=== PATIENT | male | born 1945 | race Caucasian/White ===

== ENCOUNTER 2020-09-17 21:37 | Inpatient (IN) | payer MEDICARE ==
[~2020-09-17] VITALS: Ht 172.7 cm; Wt 85.9 kg
[2020-09-17 22:22] LABS: BASO % 0.4 % (0.0-1.0); EOS # 0.1 10^3/uL (0.0-0.5); EOS % 0.6 % (0.0-3.0); HEMATOCRIT 30.5 % (42.0-52.0); HEMOGLOBIN 9.7 g/dl (13.5-17.5); LYMPH # 0.5 10^3/uL (1.5-5.0); LYMPH % 5.8 % (24.0-44.0); MEAN CORPUSCULAR HEMOGLOBIN 30.3 pg (27.0-33.0); MEAN CORPUSCULAR HGB CONC 31.8 g/dl (32.0-36.5); MEAN CORPUSCULAR VOLUME 95.3 fl (80.0-96.0); MONO # 0.6 10^3/uL (0.0-0.8); MONO % 8.3 % (0.0-5.0); NEUTROPHILS # 6.3 10^3/uL (1.5-8.5); NEUTROPHILS % 81.1 % (36.0-66.0); PLATELET COUNT, AUTOMATED 215 10^3/uL (150-450); WHITE BLOOD COUNT 7.7 10^3/uL (4.0-10.0)
--- NOTE | 2020-09-17 22:47 | REPVR ---
PROCEDURE INFORMATION: Exam: CT Head Without Contrast Exam date and time: 09/17/2020 10:36 PM Age: 74 years old Clinical indication: Other: Rule out stroke, recent confusion, visual changes TECHNIQUE: Imaging protocol: Computed tomography of the head without contrast. Radiation optimization: All CT scans at this facility use at least one of these dose optimization techniques: automated exposure control; mA and/or kV adjustment per patient size (includes targeted exams where dose is matched to clinical indication); or iterative reconstruction. COMPARISON: No relevant prior studies available. FINDINGS: Brain: There is no acute cortical infarction, intracranial hemorrhage or mass. 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 Cerebral ventricles: The ventricles appear enlarged, but not out of proportion to the degree of parenchymal volume loss. Bones/joints: Unremarkable. No acute fracture. Paranasal sinuses: Visualized sinuses are unremarkable. No fluid levels. Mastoid air cells: Visualized mastoid air cells are well aerated. Vasculature: Atherosclerosis. Soft tissues: Unremarkable. IMPRESSION: No acute intracranial findings. Electronically signed by: Awilda Jaramillo On 09/17/2020 22:47:16 PM
[2020-09-17] MEDS ORDERED: OLANZapine INTRAMUSCULAR 10MG VIAL IM ONE (23:00)
[2020-09-17 23:01] LABS: ALT/SGPT 22 U/L (12-78); BILIRUBIN,DIRECT < 0.1 MG/DL (0.0-0.2); BILIRUBIN,TOTAL 0.3 MG/DL (0.2-1.0); BLOOD UREA NITROGEN 80 MG/DL (7-18); CALCIUM LEVEL 7.7 MG/DL (8.8-10.2); CARBON DIOXIDE LEVEL 25 MEQ/L (21-32); CHLORIDE LEVEL 102 MEQ/L (98-107); CK-MB VALUE MASS 2.2 NG/ML (<3.6); CPK CREATINE PHOSPHOKINASE 203 U/L (39-308); CREATININE FOR GFR 4.86 MG/DL (0.70-1.30); GLOMERULAR FILTRATION RATE 12.5 (>42); GLUCOSE, FASTING 115 MG/DL (70-100); MB/CK RELATIVE INDEX 1.08 (< OR =4); NT-PRO BNP 3614 PG/ML (<450); POTASSIUM SERUM 4.6 MEQ/L (3.5-5.1); SODIUM LEVEL 136 MEQ/L (136-145); TOTAL PROTEIN 6.1 GM/DL (6.4-8.2); TROPONIN I < 0.02 NG/ML (< 0.10)
[2020-09-17] MEDS ORDERED: NS 500 ML IV ONE (23:30)
--- NOTE | 2020-09-17 23:55 | REPVR ---
PROCEDURE INFORMATION: Exam: XR Chest, 1 View Exam date and time: 09/17/2020 11:43 PM Age: 74 years old Clinical indication: Cough; Additional info: Dyspnea/cough TECHNIQUE: Imaging protocol: XR of the chest Views: 1 view. COMPARISON: No relevant prior studies available. FINDINGS: Lungs: Mild infiltrates in the left lung. Pleural space: Unremarkable. No pleural effusion. No pneumothorax. Heart/Mediastinum: Unremarkable. No cardiomegaly. Bones/joints: Unremarkable. IMPRESSION: Mild infiltrates in the left lung. Electronically signed by: Mike Bui On 09/17/2020 23:55:38 PM
[2020-09-18] VITALS (10 sets, daily range): BP systolic 148–196; BP diastolic 67–85; O2SAT 93–98
[2020-09-18] MEDS ORDERED: OLANZapine INTRAMUSCULAR 10MG VIAL IM ONE (00:15)
--- NOTE | 2020-09-18 01:21 | HPEPDOC ---
[facility] Medical History & Physical Date of Admission Sep 18, 2020 Date of Service: Sep 18, 2020 Attending Physician: SUKUMAR MCGEE MD History and Physical CHIEF COMPLAINT: Weakness, Encephalopathy HISTORY OF PRESENT ILLNESS: Patient is a 74 year old male with an limited past medical history presented to the emergency department via EMS the evening of 09/17/2020. He missed was contacted by the patient's who reported that the patient had been weak for the last 1-2 weeks. Patient also reported having visual changes over that time. Which showed resolved. Patient's also reported decreased appetite, increasing shortness of breath and cough. does report a history of dementia. Upon presentation, patient was found to be awake, alert and oriented, but uncooperative and restless. He was noted to be 85% on room air, improved to 95% with nasal cannula. COVID testing was POS. In regards to the reported history of vision changes, CT head is negative for any acute findings. Per nursing notes, patient refused to wear a mask, was repeatedly shouting that "I don't have COVID because I'm a Baptism and Baptism's don't get COVID ". Patient required constant redirection, with continued refusal to her blood pressure cuff or cardiac rehabilitation specialist. Ultimately, Zyprexa was administered with moderate improvement. Laboratory investigation indicated a WBC WNL, H/H of 9.7/30.5. Pro-BNP of 3614. BUN/Cr of 80/4.86 GFR of 12. Albumin of 2.0. 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 Patient is unable/unwilling to discuss any daily medication use. Given patient's oxygen requirement with COVID POS status, encephalopathy and LAILA, patient will be admitted for further evaluation and management. PAST MEDICAL HISTORY: Hypertension Unable to be obtained PAST SURGICAL HISTORY: Unable to be obtained SOCIAL HISTORY: Marital status: Resides in: Lives in home with in [address] [place]. FAMILY HISTORY: Noncontributory ALLERGIES: Penicillins REVIEW OF SYSTEMS: Unable to adequately be obtained secondary to current patient's current encephalopathy Pt does report difficulty swallowing, unclear if this is a new symptom. HOME MEDICATIONS: Please see below. PHYSICAL EXAMINATION: (Limited 2/2 to mental status) VITAL SIGNS: Please see below GENERAL APPEARANCE: Patient interviewed and examined in the emergency department. He was found to be awake and alert. He appeared extremely restless and agitated with my presence. Patient would seem to respond to my questions, though unintelligibly. Patient attends a clarification only seemed to further upset him. HEENT: Normocephalic, atraumatic. No scleral icterus noted. CARDIOVASCULAR: Regular rate and rhythm, no murmur auscultated LUNGS: Diminished lung sounds in the bases bilaterally. No obvious wheezing rales or rhonchi EXTREMITIES: Patient was moving all of his extremities independently. No indication of AV fistula. SKIN: No obvious skin rashes, lesions or bruising NEUROLOGICAL: Oriented to place. Patient was able to follow instructions as it pertains to the cardiovascular and respiratory examination. Resting tremor noted L>R. LABORATORY DATA: See below. IMAGING: Chest XR (09/17/20): Mild infiltrates in the left lung. Head CT (09/17/20): No acute intracranial findings. Renal US (09/18/20): Pending. ASSESSMENT: Patient is a 74-year-old male, past medical history of hypertension, breast otherwise unknown, who was brought to the emergency department by EMS after his stated that he had been unwell for the last 1-2 weeks. She reports increasing weakness and fatigue in the setting of intermittent coughing and shortness of breath. Patient's also raised question as to the possibility of a CVA/TIA as patient reported intermittent vision changes that had resolved prior to his presentation this evening. CT of the head did not indicate any acute intracranial pathology. Patient was extremely uncooperative as it pertains to history taking and examination. It is unclear as to whether or not the patient follows regularly with a physician, if he has known chronic kidney disease or if he takes medications on daily basis. The emergency department, patient was found to be COVID positive, which may account for the patient's encephalopathy. Depending on whether or not his elevated BUN/Cr and GFR are chronic or acute, this could also be contributing to his current presentation. Patient to be admitted to the floor under the standardized COVID order set. Close monitoring of laboratory values and oxygen saturation. Of utmost importance will be obtaining appropriate collateral regarding patient's past medical history and current medications. PLAN: #Encephalopathy vs Dementia, SARS-CoV-2 POS -Underlying dementia -Possibly related to COVID 19 but also likely compounded by uremia. -Patient's vitals are stable, he maintains saturations greater than 95% when placed on 3 L via NC. -Patient does not carry an elevated white count, he is not tachycardic, he remains afebrile, lactic acid of 1.5. Odds of of septic etiology remain low. #L-sided PNA, likely SARS-CoV-2 PNA -Droplet precautions, pulse ox, supplemental O2. Trend fibrinogen, INR, PT, PTT, d-dimer, INR, ferritin, LDH, troponin, BMP -Chest X-ray images mild infiltrates in the left lung. Pro-calcitonin, strep pneumo, Mycoplasma and Legionella pending to rule out commitment bacterial infection. -Patient will be admitted to the floor with telemetry monitoring and standard COVID lab orders. #LAILA/CKD -BUN/Cr of 80/4.86, GFR of 12. Hypoalbuminemia -No previous records. Electrolytes within normal limits. -UA, Renal ultrasound, PTH, urine osmolality, protein, potassium and sodium -Normal saline at a rate of 70 cc/hr. Patient is yet to have any urine output. -We will attempt to place a Morales for accurate I's and O's. -Serial BMP to monitor for improvement. -Avoidance of all nephrotoxic medications -Consider nephrology consultation in the AM. #Dysphagia -Pt is reporting difficulty swallowing -Difficulty swallowing liquids -Swallow evaluation, NPO for now #Hypertension -Patient noted to have elevated BP during times of agitation -Latest reading of 131/94 (106), continue to monitor. DVT PROPHYLAXIS: TEDs and Sequentials DISPOSITION: Anticipate greater than 2 night stay Vital Signs Vital Signs Date Time Temp Pulse Resp B/P (MAP) Pulse Ox O2 Delivery O2 Flow Rate FiO2 09/17/20 22:12 82 22 164/77 (106) 96 Room Air Laboratory Data Labs 24H Laboratory Tests 2 09/17/20 22:04: Immature Granulocyte % (Auto) 3.8H, Neutrophils (%) (Auto) 81.1H, Lymphocytes (%) (Auto) 5.8L, Monocytes (%) (Auto) 8.3H, Eosinophils (%) (Auto) 0.6, Basophils (%) (Auto) 0.4, Neutrophils # (Auto) 6.3, Lymphocytes # (Auto) 0.5L, Monocytes # (Auto) 0.6, Eosinophils # (Auto) 0.1, Basophils # (Auto) 0.0, Nucleated Red Blood Cells % (auto) 0.0, Anion Gap 9, Glomerular Filtration Rate 12.5L, Lactic Acid Level 1.5, Calcium Level 7.7L, Total Bilirubin 0.3, Direct Bilirubin < 0.1, Aspartate Amino Transf (AST/SGOT) 34, Alanine Aminotransferase (ALT/SGPT) 22, Alkaline Phosphatase 58, Total Creatine Kinase 203, Creatine Kinase MB 2.2, Creatine Kinase MB Relative Index 1.08, Troponin I < 0.02, FY-Ueu-R-Type Natriuretic Peptide 3614H, Total Protein 6.1L, Albumin 2.0L, Albumin/Globulin Ratio 0.5, Coronavirus (COVID-19)(PCR) POSITIVEA CBC/BMP Laboratory Tests 09/17/20 22:04 Home Medications Scheduled Amlodipine Besylate (Amlodipine Besylate) 10 Mg Tablet, 10 MG PO DAILY Ascorbic Acid (Vitamin C) 500 Mg Tablet, 500 MG PO DAILY Clopidogrel Bisulfate (Plavix) 75 Mg Tablet, 75 MG PO DAILY Glyburide (Glyburide) 5 Mg Tablet, 5 MG PO DAILY Lisinopril/Hydrochlorothiazide (Lisinopril-Hctz 20-25 mg Tab) 1 Each Tablet, 1 TAB PO DAILY Metformin HCl (Metformin HCl) 1,000 Mg Tablet, 1,000 MG PO BID Metoprolol Tartrate (Metoprolol Tartrate) 100 Mg Tablet, 100 MG PO BID Multivit-Min/FA/Lycopen/Lutein (Centrum Silver Ultra Men's Tab) 1 Each Tablet, 1 TAB PO DAILY Prednisone (Prednisone) 50 Mg Tablet, 50 MG PO DAILY Zinc (Zinc) 50 Mg Tablet, 50 MG PO DAILY Scheduled PRN Albuterol Sulfate (Proair Hfa) 8.5 Gm Hfa.aer.ad, 2 PUFF INH Q4-6HP PRN for wheezing Guaifenesin (Guaifenesin) 100 Mg/5 Ml Liquid, 5 ML PO Q4HP PRN for COUGH Allergies Coded Allergies: Penicillins (Verified Allergy, Severe, 09/17/20) A-FIB/CHADSVASC A-FIB History Current/History of A-Fib/PAF?: No GME ATTESTATION GME ATTESTATION My faculty preceptor for this patient encounter was physically present during the encounter and was fully available. All aspects of the patient interview, examination, medical decision making process, and medical care plan development were reviewed and approved by the faculty preceptor. The faculty preceptor is aware and concurs with the plan as stated in the body of this note and will attest to such by his/her cosignature. ATTENDING NOTE Mr. Hernandez is a 74 yr old w a hx HTN and possible dementia who was sent to the ER for evaluation of weakness, poor appetite, cough and dyspnea and will be admitted for management of Sepsis, COVID 19 + PNA and LAILA. rest per 's H&P ELSA WILL DO Sep 18, 2020 01:21 SUKUMAR MCGEE MD Sep 23, 2020 04:56
[2020-09-18 02:14] LABS: INR 1.13; PROTHROMBIN TIME 14.8 SECONDS (12.5-14.3)
[2020-09-18 02:15] LABS: PARTIAL THROMBOPLASTIN TIME 33.7 SECONDS (24.2-38.5)
[2020-09-18 02:19] LABS: FERRITIN 777 NG/ML (26-388); LDH LACTATE DEHYDROGENASE 421 U/L (87-241); TRIGLYCERIDES LEVEL 200 MG/DL (<150)
[2020-09-18 02:19] LABS: D-DIMER QUANT 2264.2 ng/ml (<500)
--- NOTE | 2020-09-18 03:10 | REPVR ---
PROCEDURE INFORMATION: Exam: US Retroperitoneal; Complete; Kidneys and Bladder Exam date and time: 09/18/2020 2:28 AM Age: 74 years old Clinical indication: Abnormal findings; Abnormal lab test; Abnormal kidney function lab tests; Additional info: Darius TECHNIQUE: Imaging protocol: Real-time ultrasound of the retroperitoneum with image documentation. Complete exam focused on the kidneys and bladder. COMPARISON: No relevant prior studies available. FINDINGS: Right kidney: Right kidney measures 12.6 cm in length. Multiple anechoic cyst in the right kidney measuring up to 4.2 cm. No right hydronephrosis. Echogenic right kidney. Left kidney: Left kidney measures 14.4 cm in length. Multiple anechoic cyst in the left kidney measuring up to 3.9 cm. No left hydronephrosis. Echogenic left kidney. Urinary bladder: Bladder is unremarkable. IMPRESSION: 1. No hydronephrosis bilaterally. 2. Echogenic kidneys bilaterally consistent with medical renal disease. 3. Benign-appearing renal cysts bilaterally. No follow-up is necessary. COMMENTS: Consistent with the [employer]'s Incidental Findings Committee white paper (J Am Ron Radiol 2018): Any incidental renal lesion less than 1 cm or classified as too small to characterize, or any incidental cystic renal lesion characterized as simple-appearing, is likely benign. No follow-up imaging is recommended for these lesions per consensus recommendations based on imaging criteria. Electronically signed by: Patrick Serrano On 09/18/2020 03:10:35 AM
[2020-09-18 03:19] LABS: CK-MB VALUE MASS 2.9 NG/ML (<3.6); CPK CREATINE PHOSPHOKINASE 316 U/L (39-308); MB/CK RELATIVE INDEX 0.92 (< OR =4); TROPONIN I < 0.02 NG/ML (< 0.10)
[2020-09-18] MEDS: NS 1,000 ML IV SCH ×2 (06:00→13:00)
[2020-09-18 08:23] LABS: VENOUS BASE EXCESS -3.4 (-2.0-2.0); VENOUS HCO3 21.6 MEQ/L (23.0-27.0); VENOUS O2 SATURATION 60.8 % (60.0-80.0); VENOUS PARTIAL PRESSURE CO2 38.8 mmHg (38.0-50.0); VENOUS PARTIAL PRESSURE O2 32.5 mmHg (30.0-50.0); VENOUS PH 7.364 UNITS (7.330-7.430); VENOUS TOTAL CO2 22.8 MEQ/L (24.0-28.0)
[2020-09-18 09:26] LABS: AMORPHOUS SEDIMENT SMALL (NEGATIVE); APPEARANCE, URINE HAZY (CLEAR); BACTERIA, URINE AUTO NEGATIVE (NEGATIVE); BILIRUBIN, URINE AUTO NEGATIVE (NEGATIVE); BLOOD, URINE BLOOD 2+ (NEGATIVE); COLOR, URINE YELLOW (YELLOW); GLUCOSE, URINE (UA) AUTO 1+ mg/dL (NEGATIVE); KETONE, URINE AUTO NEGATIVE (NEGATIVE); LEUKOCYTE ESTERASE, URINE AUTO NEGATIVE (NEGATIVE); MUCUS, URINE SMALL (NEGATIVE); NITRITE, URINE AUTO NEGATIVE (NEGATIVE); PROTEIN, URINE AUTO 2+ mg/dL (NEGATIVE); RBC, URINE AUTO 1 /HPF (0-3); SPECIFIC GRAVITY URINE AUTO 1.011 (1.002-1.035); SQUAMOUS EPITHELIAL CELL UR AU 0 /HPF (0-6); UROBILINOGEN, URINE AUTO 0.2 mg/dL (0.0-2.0); WBC, URINE AUTO 1 /HPF (0-3)
[2020-09-18 09:47] LABS: CREATININE,RANDOM URINE 83.7 MG/DL; POTASSIUM RANDOM URINE 34.9 MEQ/L; TOTAL PROTEIN,RANDOM URINE 234.5 MG/DL (0.0-12.0)
[2020-09-18] MEDS: dexameTHASONE 4 MG/ML 1ML VIAL (J1100 PER 1MG) IV SCH ×2 (10:34→20:51)
[2020-09-18] MEDS ORDERED: NS 500 ML IV ONE (11:15)
[2020-09-18] MEDS ORDERED: METF10004 PO (11:26)
[2020-09-18] MEDS ORDERED: METO100T5 PO (11:26)
[2020-09-18] MEDS ORDERED: LISI20TA20 PO (11:26)
[2020-09-18] MEDS ORDERED: GLYB5TA PO (11:26)
[2020-09-18] MEDS ORDERED: PLAV1TAB2 PO (11:26)
[2020-09-18] MEDS ORDERED: ZINC1TAB2 PO (11:32)
[2020-09-18] MEDS ORDERED: C 50TAB PO (11:32)
[2020-09-18] MEDS ORDERED: CENTTAB16 PO (11:32)
[2020-09-18 11:34] LABS: HEMATOCRIT 31.8 % (42.0-52.0); HEMOGLOBIN 10.2 g/dl (13.5-17.5); MEAN CORPUSCULAR HEMOGLOBIN 30.9 pg (27.0-33.0); MEAN CORPUSCULAR HGB CONC 32.1 g/dl (32.0-36.5); MEAN CORPUSCULAR VOLUME 96.4 fl (80.0-96.0); PLATELET COUNT, AUTOMATED 247 10^3/uL (150-450); WHITE BLOOD COUNT 9.1 10^3/uL (4.0-10.0)
[2020-09-18 11:37] LABS: INR 1.13; PROTHROMBIN TIME 14.8 SECONDS (12.5-14.3)
[2020-09-18 11:38] LABS: PARTIAL THROMBOPLASTIN TIME 33.9 SECONDS (24.2-38.5)
[2020-09-18 11:41] LABS: D-DIMER QUANT 1971.76 ng/ml (<500)
[2020-09-18 11:56] LABS: HEPATITIS B SURFACE ANTIBODY NEGATIVE (POSITIVE); NT-PRO BNP 4161 PG/ML (<450); PTH INTACT 279.3 PG/ML (18.5-88.0); TROPONIN I 0.23 NG/ML (< 0.10)
[2020-09-18 11:57] LABS: HEPATITIS B SURFACE ANTIGEN NEGATIVE (NEGATIVE)
[2020-09-18 12:06] LABS: ATYPICAL LYMPH 1 % (0-5); EOSINOPHILS 1 % (0-3); LYMPHOCYTES 10 % (16-44); MONOCYTES 11 % (0-5); NEUTROPHILS 77 % (28-66)
[2020-09-18 12:07] LABS: PLATELET ESTIMATE NORMAL (NORMAL)
[2020-09-18 12:08] LABS: ANISOCYTOSIS 1+
[2020-09-18 12:25] LABS: HEPATITIS B CORE ANTIBODY IGM NEGATIVE (NEGATIVE); HIV 1&2 SCREEN CENTAUR NEGATIVE (NEGATIVE)
[2020-09-18 12:53] LABS: FERRITIN 726 NG/ML (26-388); LDH LACTATE DEHYDROGENASE 473 U/L (87-241); TRIGLYCERIDES LEVEL 190 MG/DL (<150)
[2020-09-18] MEDS: HEPARIN SOD (PORCINE) 5000UNITS/ML 1ML VIAL/SYRINGE SQ SCH ×2 (13:00→20:50)
--- NOTE | 2020-09-18 14:27 | ECGEPIP ---
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
--- NOTE | 2020-09-18 15:26 | IPNPDOC ---
Text Note Date of Service The patient was seen on 09/18/20. NOTE Patient was seen and examined in the Covid 19 unit. He is on 3 L of oxygen s aturating around 95. He looks very weak and has been complaining of a lot of cough. PHYSICAL EXAMINATION: GENERAL APPEARANCE: He was found to be awake and alert. . He is on sitting questions appropriately . States that lying flat on his back makes him cough more HEENT: Normocephalic, atraumatic. No scleral icterus noted. CARDIOVASCULAR: Regular rate and rhythm, no murmur auscultated LUNGS: Diminished lung sounds in the bases bilaterally. No obvious wheezing rales or rhonchi, transmitted sounds and very poor cough reflex EXTREMITIES: Patient was moving all of his extremities independently. SKIN: No obvious skin rashes, lesions or bruising NEUROLOGICAL: Oriented to place and person. Patient was able to follow instructions. LABORATORY DATA: See below. IMAGING: Chest XR (09/17/20): Mild infiltrates in the left lung. Head CT (09/17/20): No acute intracranial findings. Renal US (09/18/20): Medical renal disease Assessment and plan Patient is a 74-year-old male, past medical history of hypertension, who was brought to the emergency department by EMS after his stated that he had been unwell for the last 1-2 weeks. She reports increasing weakness and fatigue in the setting of intermittent coughing and shortness of breath. Patient's also raised question as to the possibility of a seizure/CVA/TIA as patient reported intermittent vision changes and was swaying to one side for almost a week that had resolved prior to his presentation this evening. CT of the head did not indicate any acute intracranial pathology. As per the , because of insurance issues. The patient has not had much follow-up with his physicians, the is not familiar with him being having any chronic kidney problems. She stated that she has been taking a lot of Robitussin as well as naproxen The emergency department, patient was found to be COVID positive, which may account for the patient's encephalopathy. Patient was admitted for [place] I code 19, pneumonia and alteration in mental status. 1. Encephalopathy. Could be multifactorial. Uremia related versus SARS-CoV-2. I spoke to in detail and apparently 2 weeks back. He was doing on his usual activities, she denies him having any underlying dementia. . We'll treat the underlying conditions. Currently, he is alert, oriented, and maintaining his airways, was started on a diet as well which he tolerated well. 2. L-sided PNA, likely SARS-CoV-2 PNA: Droplet precautions, pulse ox, supplemental O2. Chest X-ray images mild infiltrates in the left lung. Pro- calcitonin, strep pneumo, Mycoplasma and Legionella pending to rule out commitment bacterial infection. . He has been started on dexamethasone because he is requiring 2-3 L of oxygen. We'll keep a close eye. Covid labs have been reviewed. 3. LAILA/CKD: Given the elevated PTH. 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 No previous records present. He has not had regular follow-up with the PCP as well. As per the . We will continue monitoring. Renal ultrasound was done which shows only medical renal disease. We will get protein creatinine ratio as well as HbA1c. UA will be done as well. Patient continues to be on normal saline at 70 mL after he got 1 L of IV bolus. He has not been letting us put a Morales in place. But the renal ultrasound does not show any distended bladder. We will still do a bladder scan. 4. Hypertension: Continue to monitor. DVT prophylaxis with teds and sequentials as well as heparin 500 3 times a day Disposition unknown at this time. I personally called the and give her all the information regarding his medical condition. VS,Fishbone, I+O VS, Fishbone, I+O Laboratory Tests 09/17/20 22:04 09/18/20 08:00 Vital Signs Date Time Temp Pulse Resp B/P (MAP) Pulse Ox O2 Delivery O2 Flow Rate FiO2 09/18/20 12:00 93 Nasal Cannula 3.0 09/18/20 08:00 98.7 99 21 148/67 (94) I&O- Last 24 Hours up to 6 AM 09/18/20 05:59 Intake Total 500 ml Balance 500 ml SIS CAMPOVERDE MD Sep 18, 2020 15:26
[2020-09-18] MEDS ORDERED: DEXTROSE 50% 50 ML SYRINGE IV PRN (19:45)
[2020-09-18] MEDS ORDERED: GLUCAGON INJ 1MG VIAL SC PRN (19:45)
[2020-09-18] MEDS ORDERED: GLUCOSE 4GM CHEW TABLET PO PRN (19:45)
[2020-09-18] MEDS: HumaLOG INSULIN (NovoLOG) PER UNIT SC SCH (20:51)
[2020-09-18] MEDS: METOPROLOL TARTRATE 100 MG TAB PO SCH (20:51)
[2020-09-19] VITALS (20 sets, daily range): BP systolic 160–188; BP diastolic 72–88; O2SAT 89–98
[2020-09-19] MEDS: HEPARIN SOD (PORCINE) 5000UNITS/ML 1ML VIAL/SYRINGE SQ SCH ×3 (04:54→20:45)
[2020-09-19] MEDS: HumaLOG INSULIN (NovoLOG) PER UNIT SC SCH ×4 (07:30→20:44)
[2020-09-19] MEDS: ASCORBIC ACID 500 MG TAB PO SCH (08:45)
[2020-09-19] MEDS: MULTIVITAMINS/MINERALS THERAP 1 TAB PO SCH (08:47)
[2020-09-19] MEDS: METOPROLOL TARTRATE 100 MG TAB PO SCH ×2 (08:47→20:45)
[2020-09-19] MEDS: dexameTHASONE 4 MG/ML 1ML VIAL (J1100 PER 1MG) IV SCH ×2 (08:48→20:46)
[2020-09-19] MEDS ORDERED: CLOPIDOGREL 75 MG TAB PO SCH (09:00)
[2020-09-19 10:49] LABS: BASO % 0.4 % (0.0-1.0); EOS % 0.3 % (0.0-3.0); HEMATOCRIT 29.4 % (42.0-52.0); HEMOGLOBIN 9.3 g/dl (13.5-17.5); LYMPH # 0.4 10^3/uL (1.5-5.0); LYMPH % 4.3 % (24.0-44.0); MEAN CORPUSCULAR HEMOGLOBIN 30.5 pg (27.0-33.0); MEAN CORPUSCULAR HGB CONC 31.6 g/dl (32.0-36.5); MEAN CORPUSCULAR VOLUME 96.4 fl (80.0-96.0); MONO # 0.6 10^3/uL (0.0-0.8); NEUTROPHILS # 8.6 10^3/uL (1.5-8.5); PLATELET COUNT, AUTOMATED 255 10^3/uL (150-450); RED BLOOD COUNT 3.05 10^6/uL (4.30-6.10); WHITE BLOOD COUNT 10.2 10^3/uL (4.0-10.0)
[2020-09-19 11:07] LABS: INR 1.1; PROTHROMBIN TIME 14.4 SECONDS (12.5-14.3)
[2020-09-19 11:08] LABS: PARTIAL THROMBOPLASTIN TIME 27.9 SECONDS (24.2-38.5)
[2020-09-19 11:22] LABS: ALBUMIN 1.9 GM/DL (3.2-5.2); BILIRUBIN,TOTAL 0.3 MG/DL (0.2-1.0); CALCIUM LEVEL 7.8 MG/DL (8.8-10.2); CREATININE FOR GFR 4.33 MG/DL (0.70-1.30); GLOMERULAR FILTRATION RATE 14.3 (>42); POTASSIUM SERUM 4.2 MEQ/L (3.5-5.1); TOTAL PROTEIN 5.8 GM/DL (6.4-8.2)
[2020-09-19 11:25] LABS: ALBUMIN 1.9 GM/DL (3.2-5.2); ALT/SGPT 42 U/L (12-78); BILIRUBIN,DIRECT < 0.1 MG/DL (0.0-0.2); BILIRUBIN,TOTAL 0.2 MG/DL (0.2-1.0); BLOOD UREA NITROGEN 74 MG/DL (7-18); CALCIUM LEVEL 7.5 MG/DL (8.8-10.2); CARBON DIOXIDE LEVEL 26 MEQ/L (21-32); CHLORIDE LEVEL 106 MEQ/L (98-107); CREATININE FOR GFR 4.39 MG/DL (0.70-1.30); FERRITIN 529 NG/ML (26-388); GLOMERULAR FILTRATION RATE 14.1 (>42); GLUCOSE, FASTING 200 MG/DL (70-100); MAGNESIUM LEVEL 2.6 MG/DL (1.8-2.4); NT-PRO BNP 9356 PG/ML (<450); POTASSIUM SERUM 4.2 MEQ/L (3.5-5.1); SODIUM LEVEL 141 MEQ/L (136-145); TOTAL PROTEIN 5.9 GM/DL (6.4-8.2)
[2020-09-19] MEDS: CHLORHEXIDINE GLUCONATE 0.12 % 15ML UDC (PERIDEX ORAL RINSE) SSP SCH ×2 (11:53→20:44)
[2020-09-19] MEDS: NS 1,000 ML IV SCH (11:53)
--- NOTE | 2020-09-19 13:07 | IPNPDOC ---
Text Note Date of Service The patient was seen on 09/19/20. NOTE Patient was seen and examined in the Covid 19 unit. He is on 2 L of oxygen s aturating around 95. He looks very weak and has been complaining of a lot of cough. PHYSICAL EXAMINATION: GENERAL APPEARANCE: He was found to be awake and alert. . He is on sitting questions appropriately . States that lying flat on his back makes him cough more HEENT: Normocephalic, atraumatic. No scleral icterus noted. CARDIOVASCULAR: Regular rate and rhythm, no murmur auscultated LUNGS: Diminished lung sounds in the bases bilaterally. No obvious wheezing rales or rhonchi, transmitted sounds and very poor cough reflex EXTREMITIES: Patient was moving all of his extremities independently. SKIN: No obvious skin rashes, lesions or bruising NEUROLOGICAL: Oriented to place and person. Patient was able to follow instructions. LABORATORY DATA: See below. IMAGING: Chest XR (09/17/20): Mild infiltrates in the left lung. Head CT (09/17/20): No acute intracranial findings. Renal US (09/18/20): Medical renal disease Assessment and plan Patient is a 74-year-old male, past medical history of hypertension, who was brought to the emergency department by EMS after his stated that he had been unwell for the last 1-2 weeks. She reports increasing weakness and fatigue in the setting of intermittent coughing and shortness of breath. Patient's also raised question as to the possibility of a seizure/CVA/TIA as patient reported intermittent vision changes and was swaying to one side for almost a week that had resolved prior to his presentation this evening. CT of the head did not indicate any acute intracranial pathology. As per the , because of insurance issues. The patient has not had much follow-up with his physicians, the is not familiar with him being having any chronic kidney problems. She stated that she has been taking a lot of Robitussin as well as naproxen The emergency department, patient was found to be COVID positive, which may account for the patient's encephalopathy. The patient apparently is on hydrochlorothiazide as well as lisinopril. Also at home because of his hypertension. The patient has been improving and is more alert today, as well as he is on only 2 L of oxygen, though he does not use any oxygen at home. Seems like that he has chronic kidney disease because of his PTH of 290, which correlates with CAD stage IIIB to 4. He has been nonoliguric and has been making more than a liter a day. She definitely will require outpatient follow-up with nephrology. He is not hyperkalemic severely acidotic or having any other alma cations of initiation of dialysis but probably would require a close follow-up with nephrology as an outpatient. Patient is currently admitted for [place] I/CKD coVID 19, pneumonia and alteration in mental status. 1. Encephalopathy. Could be multifactorial. Uremia related versus SARS-CoV-2. I spoke to in detail and apparently 2 weeks back. He was doing on his usual activities, she denies him having any underlying dementia. . We'll treat the underlying conditions. Currently, he is alert, oriented, and maintaining his airways, was started on a diet as well which he tolerated well. 2. Left-sided pneumonia, likely SARS-CoV-2 PNA: Droplet precautions, pulse ox, supplemental O2. Chest X-ray images mild infiltrates in the left lung. Pro- calcitonin slightly elevated, strep pneumo, Mycoplasma and Legionella pending to rule out commitment bacterial infection. He has been started on dexamethasone because he is requiring 2-3 L of oxygen. We'll keep a close eye. Covid labs have been reviewed.. He is on 2 L of oxygen and is improving. 3. LAILA/CKD: Given the elevated PTH. 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 No previous records present. He has not had regular follow-up with the PCP as well as per the . We will continue monitoring. Renal ultrasound was done which shows only medical renal disease. We will get protein creatinine ratio as well as HbA1c. UA will be done as well. Patient continues to be on normal saline at 70 mL after he got 1 L of IV bolus. He has not been letting us put a Morales in place. But the renal ultrasound does not show any distended bladder. 4. Hypertension: Continue to monitor. Metoprolol will be continued. His head was has evidence of recurrent hold. Amlodipine 5, has been admitted today. DVT prophylaxis with teds and sequentials as well as heparin 5000 3 times a day Disposition unknown at this time. I personally called the and give her all the information regarding his medical condition. VS,Jennifer, I+O VS, Fishbone, I+O Laboratory Tests 09/19/20 10:01 Vital Signs Date Time Temp Pulse Resp B/P (MAP) Pulse Ox O2 Delivery O2 Flow Rate FiO2 09/19/20 08:47 83 182/81 09/19/20 08:00 96.4 21 98 Nasal Cannula 2.0 I&O- Last 24 Hours up to 6 AM 09/19/20 06:00 Intake Total 2020 ml Output Total 2950 ml Balance -930 ml SIS CAMPOVERDE MD Sep 19, 2020 13:07
[2020-09-19] MEDS: amLODIPine 5 MG TAB PO SCH (14:36)
[2020-09-20] VITALS: BP 151/80; O2SAT 96
[2020-09-20] MEDS: NS 1,000 ML IV SCH (03:49)
[2020-09-20 04:00] VITALS: BP 165/76
[2020-09-20] MEDS: HEPARIN SOD (PORCINE) 5000UNITS/ML 1ML VIAL/SYRINGE SQ SCH ×2 (06:29→13:32)
[2020-09-20 07:55] LABS: BASO % 0.2 % (0.0-1.0); EOS % 0.1 % (0.0-3.0); HEMATOCRIT 29.9 % (42.0-52.0); HEMOGLOBIN 9.8 g/dl (13.5-17.5); LYMPH # 0.4 10^3/uL (1.5-5.0); LYMPH % 4.2 % (24.0-44.0); MEAN CORPUSCULAR HEMOGLOBIN 31.4 pg (27.0-33.0); MEAN CORPUSCULAR HGB CONC 32.8 g/dl (32.0-36.5); MEAN CORPUSCULAR VOLUME 95.8 fl (80.0-96.0); MONO # 0.7 10^3/uL (0.0-0.8); MONO % 6.6 % (0.0-5.0); NEUTROPHILS # 8.4 10^3/uL (1.5-8.5); NEUTROPHILS % 84.1 % (36.0-66.0); PLATELET COUNT, AUTOMATED 260 10^3/uL (150-450); RED BLOOD COUNT 3.12 10^6/uL (4.30-6.10)
[2020-09-20 08:00] VITALS: BP 196/92
[2020-09-20 08:20] LABS: INR 1.16; PROTHROMBIN TIME 15.1 SECONDS (12.5-14.3)
[2020-09-20 08:21] LABS: PARTIAL THROMBOPLASTIN TIME 30.1 SECONDS (24.2-38.5)
[2020-09-20 08:25] LABS: ALBUMIN 1.9 GM/DL (3.2-5.2); ALT/SGPT 41 U/L (12-78); BILIRUBIN,DIRECT < 0.1 MG/DL (0.0-0.2); BILIRUBIN,TOTAL 0.2 MG/DL (0.2-1.0); BLOOD UREA NITROGEN 76 MG/DL (7-18); CALCIUM LEVEL 7.8 MG/DL (8.8-10.2); CARBON DIOXIDE LEVEL 24 MEQ/L (21-32); CHLORIDE LEVEL 109 MEQ/L (98-107); CREATININE FOR GFR 3.81 MG/DL (0.70-1.30); FERRITIN 437 NG/ML (26-388); GLOMERULAR FILTRATION RATE 16.6 (>42); GLUCOSE, FASTING 207 MG/DL (70-100); MAGNESIUM LEVEL 2.3 MG/DL (1.8-2.4); POTASSIUM SERUM 4.3 MEQ/L (3.5-5.1); SODIUM LEVEL 141 MEQ/L (136-145); TOTAL PROTEIN 6.5 GM/DL (6.4-8.2)
[2020-09-20] MEDS: ASCORBIC ACID 500 MG TAB PO SCH (08:30)
[2020-09-20] MEDS: HumaLOG INSULIN (NovoLOG) PER UNIT SC SCH ×2 (08:30→13:32)
[2020-09-20] MEDS: CHLORHEXIDINE GLUCONATE 0.12 % 15ML UDC (PERIDEX ORAL RINSE) SSP SCH (08:30)
[2020-09-20] MEDS: METOPROLOL TARTRATE 100 MG TAB PO SCH (08:31)
[2020-09-20] MEDS: MULTIVITAMINS/MINERALS THERAP 1 TAB PO SCH (08:31)
[2020-09-20] MEDS: dexameTHASONE 4 MG/ML 1ML VIAL (J1100 PER 1MG) IV SCH (08:31)
[2020-09-20] MEDS: amLODIPine 5 MG TAB PO SCH (08:31)
[2020-09-20 08:47] LABS: NT-PRO BNP 11542 PG/ML (<450)
[2020-09-20 09:46] VITALS: BP 166/74
[2020-09-20] MEDS ORDERED: guaiFENesin SYRUP 200 MG/10 ML UDC PO PRN (12:00)
--- NOTE | 2020-09-20 14:14 | DS.PDOC ---
Discharge Summary General Date of Admission Sep 18, 2020 at 01:05 Date of Discharge 09/20/2020 Discharge Summary PROCEDURES PERFORMED DURING STAY: [None]. ADMITTING DIAGNOSES: 1. Weakness 2. Encephalopathy DISCHARGE DIAGNOSES: 1. Hypoxia due to COVID infection 2. 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 HISTORY OF PRESENT ILLNESS: From H&P: Patient is a 74 year old male with an limited past medical history presented to the emergency department via EMS the evening of 09/17/2020. He missed was contacted by the patient's who reported that the patient had been weak for the last 1-2 weeks. Patient also reported having visual changes over that time. Which showed resolved. Patient's also reported decreased appetite, increasing shortness of breath and cough. does report a history of dementia. Upon presentation, patient was found to be awake, alert and oriented, but uncooperative and restless. He was noted to be 85% on room air, improved to 95% with nasal cannula. COVID testing was POS. In regards to the reported history of vision changes, CT head is negative for any acute findings. Per nursing notes, patient refused to wear a mask, was repeatedly shouting that "I don't have COVID because I'm a [employer] and [employer]'s don't get COVID ". Patient required constant redirection, with continued refusal to her blood pressure cuff or personnel monitor. Ultimately, Zyprexa was administered with moderate improvement. Laboratory investigation indicated a WBC WNL, H/H of 9.7/30.5. Pro-BNP of 3614. BUN/Cr of 80/4.86 GFR of 12. Albumin of 2.0. 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 Patient is unable/unwilling to discuss any daily medication use. Given patient's oxygen requirement with COVID POS status, encephalopathy and LAILA, patient will be admitted for further evaluation and management. HOSPITAL COURSE: Patient is a 74-year-old male, past medical history of hypertension, who was brought to the emergency department by EMS after his stated that he had been unwell for the last 1-2 weeks. She reports increasing weakness and fatigue in the setting of intermittent coughing and shortness of breath. Patient's also raised question as to the possibility of a seizure/CVA/TIA as patient reported intermittent vision changes and was swaying to one side for almost a week that had resolved prior to his presentation this evening. CT of the head did not indicate any acute intrac ranial pathology. As per the , because of insurance issues. The patient has not had much follow-up with his physicians, the is not familiar with him being having any chronic kidney problems. She stated that she has been taking a lot of Robitussin as well as naproxen The emergency department, patient was found to be COVID positive, which may account for the patient's encephalopathy. The patient apparently is on hydrochlorothiazide as well as lisinopril. Also at home because of his hypertension. Seems like that he has chronic kidney disease because of his PTH of 290, which correlates with CAD stage IIIB to 4. He has been nonoliguric and has been making more than a liter a day. He definitely will require outpatient follow-up with nephrology. I saw the patient on 09/20/2020 and regarding the history of encephalopathy on admission I did not observe this. Patient was completely alert and oriented making jokes and I was not under the impression he has any level of underlying encephalopathy at this time. Regarding his suspected left-sided pneumonia; he does not have leukocytosis and his cough is chronic and unchanged his pro-calcitonin is 0.42. At this time I do not suspect the patient has a pneumonia he has also been afebrile during his entire length of stay. The patient does have Covid and didn't require supplement oxygen initially which was weaned down and he is saturating at 96% on room air both at rest and on ambulation he has sustained an oxygen saturation over 90%. He denies being short of breath anymore and does not feel weak. I don't think the patient will require antibiotics since I don't think he has a pneumonia but I do recommend a follow-up with his primary care doctor within 2-5 days of discharge. Regarding his code infection given that he required oxygen during his stay initially I will discharge him home on 5 days of prednisone by mouth. I also prescribed him an albuterol inhaler to be used as needed for wheezing or shortness of breath. I instructed the patient to return back to the emergency department should he develop increased shortness of breath, weakness, wheezing, increased sputum production or new onset fevers. Regarding his hypertension patient is not compliant with home medications but I emphasized the importance of following up with a primary care doctor upon discharge. I will increase his amlodipine from 5 mg to 10 mg upon discharge. Patient was cleared by physical therapy for discharge to home. DISCHARGE MEDICATIONS: Please see below. ALLERGIES: Please see below. PHYSICAL EXAMINATION ON DISCHARGE: Constitutional: Awake and alert, in no apparent distress, sitting at the edge of his bed and having dinner saturating at 94% on room air. ENT: Sclera are clear. Mucosa is moist. Respiratory: Lungs CTA bilaterally although breath sounds are somewhat diminished bilaterally. No respiratory distress. No use of accessory muscles. Patient has a poor cough reflex Cardiovascular: RRR S1 and S2 are normal, no murmur Gastrointestinal: Abdomen is soft, non distended, non tender, BS present. Musculoskeletal: No edema. Neurologic: No focal neurological deficit. Mental Status: A&O x3, normal affect Skin: Warm, dry LABORATORY DATA: Please see below. IMAGING: Chest XR (09/17/20): Mild infiltrates in the left lung. Head CT (09/17/20): No acute intracranial findings. Renal US (09/18/20): Medical renal disease PROGNOSIS: fair ACTIVITY: [As tolerated]. DIET: Renal, low-salt diet DISPOSITION: Home DISCHARGE INSTRUCTIONS: Please follow up with your primary care physician within 1 week from discharge. If you do not have one, please follow up with us to schedule an appointment. Please keep all of your follow up appointments. Please call central to book your appointments with hospital specialists. Please take all your medications as prescribed. Please call/come to Clinic or go to the Emergency Department if - Temp >101, intractable Nausea/Vomiting, Diarrhea, Mouth sores, Headaches, Altered mental status, Seizures, sudden onset of swelling, bleeding, shortness of breath or chest pain. Quarantine plan per CDC recommendations discussed thoroughly with patient. ITEMS TO FOLLOWUP ON ON OUTPATIENT: Follow-up with PCP Follow-up with nephrology Taking her medications as prescribed DISCHARGE CONDITION: [Stable]. TIME SPENT ON DISCHARGE: Greater than 50 minutes. Vital Signs/I&Os Vital Signs Date Time Temp Pulse Resp B/P (MAP) Pulse Ox O2 Delivery O2 Flow Rate FiO2 09/20/20 09:46 67 166/74 (104) 96 09/20/20 08:00 98.6 20 Nasal Cannula 2.0 I&O- Last 24 Hours up to 6 AM 09/20/20 06:00 Intake Total 2050 ml Output Total 1750 ml Balance 300 ml Laboratory Data Labs 24H Laboratory Tests 2 09/19/20 16:37: Bedside Glucose (Misc Panel) 225H 09/19/20 20:24: Bedside Glucose (Misc Panel) 259H 09/20/20 06:28: Bedside Glucose (Misc Panel) 201H 09/20/20 07:07: Immature Granulocyte % (Auto) 4.8H, Neutrophils (%) (Auto) 84.1H, Lymphocytes (%) (Auto) 4.2L, Monocytes (%) (Auto) 6.6H, Eosinophils (%) (Auto) 0.1, Basophils (%) (Auto) 0.2, Neutrophils # (Auto) 8.4, Lymphocytes # (Auto) 0.4L, Monocytes # (Auto) 0.7, Eosinophils # (Auto) 0.0, Basophils # (Auto) 0.0, Nucleated Red Blood Cells % (auto) 0.0, Prothrombin Time 15.1H, Prothromb Time International Ratio 1.16, Activated Partial Thromboplast Time 30.1, Fibrinogen 740H, Anion Gap 8, Glomerular Filtration Rate 16.6L, Calcium Level 7.8L, Magnesium Level 2.3, Ferritin 437H, Total Bilirubin 0.2, Direct Bilirubin < 0.1, Aspartate Amino Transf (AST/SGOT) 40H, Alanine Aminotransferase (ALT/SGPT) 41, Alkaline Phosphatase 73, UW-Fhe-G-Type Natriuretic Peptide 61137P, Total Protein 6.5, Albumin 1.9L, Albumin/Globulin Ratio 0.4 09/20/20 11:02: Bedside Glucose (Misc Panel) 165H CBC/BMP Laboratory Tests 09/20/20 07:07 FSBS Laboratory Tests Test 09/19/20 16:37 09/19/20 20:24 09/20/20 06:28 09/20/20 11:02 Range/Units Bedside Glucose (Misc Panel) 225 259 201 165 83-110 MG/DL Microbiology Microbiology 09/18/20 Blood Culture - Preliminary, Resulted No Growth after 48 hours. All Specime... 09/18/20 Blood Culture - Preliminary, Resulted No Growth after 48 hours. All Specime... Discharge Medications Scheduled Amlodipine Besylate (Amlodipine Besylate) 10 Mg Tablet, 10 MG PO DAILY Ascorbic Acid (Vitamin C) 500 Mg Tablet, 500 MG PO DAILY, (Reported) Clopidogrel Bisulfate (Plavix) 75 Mg Tablet, 75 MG PO DAILY, (Reported) Glyburide (Glyburide) 5 Mg Tablet, 5 MG PO DAILY, (Reported) Lisinopril/Hydrochlorothiazide (Lisinopril-Hctz 20-25 mg Tab) 1 Each Tablet, 1 TAB PO DAILY, (Reported) Metformin HCl (Metformin HCl) 1,000 Mg Tablet, 1,000 MG PO BID, (Reported) Metoprolol Tartrate (Metoprolol Tartrate) 100 Mg Tablet, 100 MG PO BID, (Reported) Multivit-Min/FA/Lycopen/Lutein (Centrum Silver Ultra Men's Tab) 1 Each Tablet, 1 TAB PO DAILY, (Reported) Prednisone (Prednisone) 50 Mg Tablet, 50 MG PO DAILY Zinc (Zinc) 50 Mg Tablet, 50 MG PO DAILY, (Reported) Scheduled PRN Albuterol Sulfate (Proair Hfa) 8.5 Gm Hfa.aer.ad, 2 PUFF INH Q4-6HP PRN for wheezing Guaifenesin (Guaifenesin) 100 Mg/5 Ml Liquid, 5 ML PO Q4HP PRN for COUGH Allergies Coded Allergies: Penicillins (Verified Allergy, Severe, 09/17/20) ANTOINE VILLALPANDO MD Sep 20, 2020 14:14
[2020-09-20] MEDS ORDERED: PROAAER10 INH (14:34)
[2020-09-20] MEDS ORDERED: GUAI100S51 PO (14:34)
[2020-09-20] MEDS ORDERED: AMLO1TAB25 PO (14:34)
[2020-09-20] MEDS ORDERED: PRED50TA PO (14:34)
[2020-09-20] MEDS ORDERED: ALBUTEROL 90 MCG/ACT 8GM HFA INHALER INH PRN (14:45)
[2020-09-20 17:06] LABS: HEPATITIS B CORE ANTIBODY IGG Negative (Negative); MYCOPLASMA PNEUMONIAE IgG 533 U/mL (0-99); MYCOPLASMA PNEUMONIAE IgM <770 U/mL (0-769); PHOSPHOLIPIDS LEVEL 225 mg/dL (150-250)
[2020-09-21 13:06] LABS: BODY FLUID CULTURE Not indicated. (.); LEGIONELLA ANTIGEN URINE Negative (Negative); ORGANISM ID Not indicated. (.); SPECIMEN SOURCE Urine (.); URINE STREP PNEUMONIAE ANTIGEN Negative (Negative)
== END 2020-09-20 17:00 | disposition home health service (06) | DRG 178 ==
LOC: M ED 21:37 → EEVIPCON 09-18 01:05 → M ED INP 09-18 01:05 → M 4MAIN 09-18 04:30
PROVIDERS: ADMIT Internal Medicine; ATTEND Family Medicine
DX: U07.1 COVID-19 (principal); G93.40 Encephalopathy, unspecified; N17.9 Acute kidney failure, unspecified; N18.4 Chronic kidney disease, stage 4 (severe); I12.9 Hypertensive chronic kidney disease with stage 1 through stage 4 chronic kidney disease, or unspecified chronic kidney disease; R53.1 Weakness; R09.02 Hypoxemia; F03.90 Unspecified dementia, unspecified severity, without behavioral disturbance, psychotic disturbance, mood disturbance, and anxiety; R13.10 Dysphagia, unspecified; Z79.02 Long term (current) use of antithrombotics/antiplatelets; Z79.84 Long term (current) use of oral hypoglycemic drugs; Z79.899 Other long term (current) drug therapy; Z88.0 Allergy status to penicillin

== ENCOUNTER 2021-06-09 18:28 | Inpatient (IN) | payer MEDICARE ==
[~2021-06-09] VITALS: Ht 172.7 cm; Wt 76.6 kg
[~2021-06-09 18:28] MED LIST: AMLO1TAB25 PO; C 50TAB PO; CENTTAB16 PO; GLYB5TAB6 PO; GUAI100S51 PO; LISI20TA20 PO; METF10004 PO; METO100T5 PO; PLAV1TAB2 PO; PRED50TA PO; PROAAER10 INH; ZINC1TAB2 PO
[2021-06-09 20:41] LABS: BASO % 0.4 % (0.0-1.0); EOS # 0.2 10^3/uL (0.0-0.5); EOS % 4.2 % (0.0-3.0); HEMATOCRIT 25.3 % (42.0-52.0); HEMOGLOBIN 8.3 g/dl (13.5-17.5); LYMPH # 0.6 10^3/uL (1.5-5.0); MEAN CORPUSCULAR HEMOGLOBIN 30.7 pg (27.0-33.0); MEAN CORPUSCULAR HGB CONC 32.8 g/dl (32.0-36.5); MEAN CORPUSCULAR VOLUME 93.7 fl (80.0-96.0); MONO # 0.8 10^3/uL (0.0-0.8); NEUTROPHILS # 3.8 10^3/uL (1.5-8.5); PLATELET COUNT, AUTOMATED 197 10^3/uL (150-450); WHITE BLOOD COUNT 5.4 10^3/uL (4.0-10.0)
[2021-06-09 20:49] LABS: INR 1.02; PROTHROMBIN TIME 13.8 SECONDS (12.7-14.5)
[2021-06-09 20:50] LABS: PARTIAL THROMBOPLASTIN TIME 36.1 SECONDS (25.9-37.0)
[2021-06-09 21:03] LABS: ALBUMIN 3.2 GM/DL (3.2-5.2); CALCIUM LEVEL 8.1 MG/DL (8.8-10.2); CREATININE FOR GFR 7.4 MG/DL (0.70-1.30); GLOMERULAR FILTRATION RATE 7.7 (>42); PHOSPHORUS LEVEL 6.8 MG/DL (2.5-4.9)
[2021-06-09 21:15] LABS: RSV AMPLIFICATION NEGATIVE (NEGATIVE)
--- NOTE | 2021-06-09 21:15 | REPVR ---
PROCEDURE INFORMATION: Exam: XR Chest Exam date and time: 06/09/2021 8:40 PM Age: 75 years old Clinical indication: Cough and other: Renal failure; Additional info: Cough, renal failure TECHNIQUE: Imaging protocol: XR of the chest. Views: 1 view. COMPARISON: CR PORTABLE CHEST X-RAY 09/17/2020 11:32 PM FINDINGS: Lungs: Minimal left base infiltrate or atelectasis which is similar to decreased. The right lung is unchanged. Minimal linear scar in the left upper lobe. Pleural spaces: Mild left pleural effusion which is new. Heart/Mediastinum: The heart and mediastinum are unchanged. Bones/joints: Unremarkable. IMPRESSION: 1. Mild left pleural effusion, new since 09/17/2020. 2. Minimal left base infiltrate or atelectasis which is similar to slightly decreased. 3. Otherwise stable chest. Electronically signed by: George Iraheta On 06/09/2021 21:14:43 PM
--- NOTE | 2021-06-09 22:26 | HPEPDOC ---
[facility] Medical History & Physical Date of Admission Jun 09, 2021 Date of Service: Jun 10, 2021 Primary Care Physician: Alonzo Ponce Attending Physician: SUKUMAR MCGEE MD History and Physical TIME OF SERVICE: 12:01 AM CHIEF COMPLAINT: Sent by Dr. Jaun Oneil HISTORY OF PRESENT ILLNESS: Mr. Hernandez is a 75-year-old gentleman who was sent from Dr. Oneil's office for evaluation of LAILA on CKD. The patient denies feeling unwell. He also denied having a poor appetite, having itchy skin, or having any acute complaints. However while completing the review of systems he admitted feeling tired and sleeping about 12 hours/day. He has had a runny nose, productive cough for the last week, and unintentionally lost 20 pounds over a period of 3 weeks, and has had right upper thigh pain since July. REVIEW OF SYSTEMS: 10-point review of systems negative except as listed in HPI PAST MEDICAL/ SURGICAL HISTORY: Essential hypertension, NIDDM his oral antiglycemic's were recently discontinued, he had COVID-19 in August of last year, CKD 3, tertiary hyperparathyroidism SOCIAL HISTORY: He is and lives with his . He began smoking at about 15 years of age and stopped in 1983. FAMILY HISTORY: n/a ALLERGIES: Please see below. HOME MEDICATIONS: Please see below. PHYSICAL EXAMINATION: Vital Signs Date Time Temp Pulse Resp B/P (MAP) Pulse Ox O2 Delivery O2 Flow Rate FiO2 06/09/21 18:28 96.2 71 16 157/70 (99) 95 Room Air GENERAL APPEARANCE: Well-nourished, well-developed, not in apparent distress HEENT: Extraocular movements intact, no scleral icterus, mucous membranes moist and pink CARDIOVASCULAR: Regular rate and rhythm no murmurs rubs or gallops no lower extremity edema LUNGS: He is coughing frequently, he is not using accessory muscles, he is not wheezing, the lungs are clear to auscultation bilaterally on room air ABDOMEN: Soft and nontender MUSCULOSKELETAL: NCAT, range of motion intact in all 4 extremities and back INTEGUMENT: He is not flushed pale or diaphoretic, NEUROLOGICAL: speech is not dysarthric PSYCHIATRIC: He is alert and oriented and able to understand and follow simple commands and answer questions LABORATORY DATA: IMAGIN view Chest x-ray IMPRESSION: 1. Mild left pleural effusion, new since 09/17/2020. 2. Minimal left base infiltrate or atelectasis which is similar to slightly decreased. 3. Otherwise stable chest. MICROBIOLOGY: The respiratory panel is negative ASSESSMENT: Mr. Hernandez is a 75-year-old with a history of HTN, NIDDM & CKD 3 [address] was [address] Oneil's office for evaluation of LAILA on CKD vs ESRD. 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 Plan: Admit to medical floor/ telemetry/f/u renal US / follow-up with Dr. Tate for possible dialysis in the morning 2 Uncontrolled hypertension Plan: Hydralazine PRN / pending reconciliation of his home meds once the manager clinical pharmacy is able to contact his to review his meds 3 normocytic normochromic anemia Likely due to chronic renal disease Plan: Follow-up iron studies, type and screen, & stool occult 4 Chronic Monocytosis He also had monocytosis during his admission in August He also has eosinophilia, neutropenia, anemia, and unintentional weight loss which are concerning for malignancy Plan: Follow-up peripheral smear 5 Acute cough Likely due to bronchitis versus other cause TBD His respiratory panel was negative Plan: f/u 2 view chest x-ray to definitively rule out pneumonia /resume home dose of albuterol pending reconciliation of his medications in the meanwhile we will give him a one-time dose of albuterol 6 NIDDM2 The patient reports that his diabetic meds were discontinued because of hypoglycemia Plan: Follow-up fingersticks and A1c /sliding scale insulin with hypoglycemia protocol DVT px w TEDs and Sequentials (Bri Prediction Score to determine the in- patient risk of VTE & need for anticoagulation is 1. Individuals with a Bri Score <4 are low risk of VTE and thromboprophylaxis should be considered on a [id number] basis while individuals with a Bri score >4 are high risk for VTE and will likely benefit from thromboprophylaxis unless the patient has major contraindication such as major bleeding or thrombocytopenia). Because of the uremia, which causes platelet dysfunction, he is at high risk of bleeding. Dispo: home after at least 2 midnights stay His HOSPITAL Score is 2 = which puts him in the low risk group. He has a 5.8% risk of potentially avoidable readmission within the next 30 days. Home Medications Scheduled Amlodipine Besylate (Amlodipine Besylate) 10 Mg Tablet, 10 MG PO DAILY Ascorbic Acid (Vitamin C) 500 Mg Tablet, 500 MG PO DAILY Clopidogrel Bisulfate (Plavix) 75 Mg Tablet, 75 MG PO DAILY Glyburide (Glyburide) 5 Mg Tablet, 5 MG PO DAILY Lisinopril/Hydrochlorothiazide (Lisinopril-Hctz 20-25 mg Tab) 1 Each Tablet, 1 TAB PO DAILY Metformin HCl (Metformin HCl) 1,000 Mg Tablet, 1,000 MG PO BID Metoprolol Tartrate (Metoprolol Tartrate) 100 Mg Tablet, 100 MG PO BID Multivit-Min/FA/Lycopen/Lutein (Centrum Silver Ultra Men's Tab) 1 Each Tablet, 1 TAB PO DAILY Prednisone (Prednisone) 50 Mg Tablet, 50 MG PO DAILY Zinc (Zinc) 50 Mg Tablet, 50 MG PO DAILY Scheduled PRN Albuterol Sulfate (Proair Hfa) 8.5 Gm Hfa.aer.ad, 2 PUFF INH Q4-6HP PRN for wheezing Guaifenesin (Guaifenesin) 100 Mg/5 Ml Liquid, 5 ML PO Q4HP PRN for COUGH Allergies Coded Allergies: Penicillins (Verified Allergy, Severe, 09/17/20) A-FIB/CHADSVASC A-FIB History Current/History of A-Fib/PAF?: No Current PO Anticoag Therapy: No SUKUMAR MCGEE MD Jun 09, 2021 22:26
[2021-06-10 00:03] LABS: PERCENT SATURATION 18.6 % (19.7-50.0)
[2021-06-10] MEDS ORDERED: ALBUTEROL SULFATE 2.5 MG/0.5 ML INH NEB SOLN NEB ONE (00:20)
[2021-06-10 01:00] VITALS: BP 123/78
[2021-06-10] MEDS: BENZONATATE 100 MG CAP PO PRN ×3 (02:20→18:42)
[2021-06-10] MEDS ORDERED: GLUCOSE 4GM CHEW TABLET PO PRN (03:50)
[2021-06-10] MEDS ORDERED: GLUCAGON INJ 1MG VIAL SC PRN (03:50)
[2021-06-10] MEDS ORDERED: DEXTROSE 50% 50 ML SYRINGE IV PRN (03:50)
[2021-06-10] MEDS ORDERED: **hydrALAZINE** 10 MG TAB PO PRN (04:00)
[2021-06-10] MEDS: HEPARIN SOD (PORCINE) 5000UNITS/ML 1ML VIAL/SYRINGE SC SCH ×3 (05:18→21:03)
[2021-06-10 05:40] LABS: HEMATOCRIT 24.6 % (42.0-52.0); HEMOGLOBIN 8.1 g/dl (13.5-17.5); MEAN CORPUSCULAR HEMOGLOBIN 30.3 pg (27.0-33.0); MEAN CORPUSCULAR HGB CONC 32.9 g/dl (32.0-36.5); MEAN CORPUSCULAR VOLUME 92.1 fl (80.0-96.0); PLATELET COUNT, AUTOMATED 173 10^3/uL (150-450); RED BLOOD COUNT 2.67 10^6/uL (4.30-6.10); WHITE BLOOD COUNT 5.5 10^3/uL (4.0-10.0)
[2021-06-10 06:00] VITALS: BP 138/63
[2021-06-10 06:07] LABS: BLOOD UREA NITROGEN 104 MG/DL (7-18); CALCIUM LEVEL 7.9 MG/DL (8.8-10.2); CARBON DIOXIDE LEVEL 20 MEQ/L (21-32); CHLORIDE LEVEL 105 MEQ/L (98-107); CREATININE FOR GFR 7.33 MG/DL (0.70-1.30); GLOMERULAR FILTRATION RATE 7.8 (>42); GLUCOSE, FASTING 158 MG/DL (70-100); POTASSIUM SERUM 3.9 MEQ/L (3.5-5.1); SODIUM LEVEL 137 MEQ/L (136-145)
[2021-06-10 06:10] LABS: HEMOGLOBIN A1c 7.8 %
[2021-06-10] MEDS: HumaLOG INSULIN (NovoLOG) PER UNIT SC SCH ×4 (07:30→21:00)
[2021-06-10 08:00] LABS: CHOLESTEROL LEVEL 201 MG/DL (<200); HDL CHOLESTEROL 33 MG/DL (>40); LDL CHOLESTEROL 128 MG/DL (<100); NON-HDL-C 168 MG/DL; TRIGLYCERIDES LEVEL 200 MG/DL (<150)
[2021-06-10 08:51] LABS: HEPATITIS B SURFACE ANTIBODY NEGATIVE (POSITIVE); PTH INTACT 148.1 PG/ML (18.5-88.0)
[2021-06-10] MEDS ORDERED: ASCORBIC ACID 500 MG TAB PO SCH (09:00)
[2021-06-10 09:03] LABS: HEPATITIS B SURFACE ANTIGEN NEGATIVE (NEGATIVE)
--- NOTE | 2021-06-10 09:08 | REP ---
INDICATION: cough and atelectasis vs inflitrate. COMPARISON: 06/09/2021 TECHNIQUE: PA and lateral FINDINGS: The cardiomediastinal silhouette is unchanged. The left lower lobe opacity with CP angle blunting is unchanged. The right lung is again seen to be clear. The right CP angle is sharp. There is no change in the osseous structures. IMPRESSION: No significant change from the prior exam. Persistent left basilar opacity and pleural effusion. <Electronically signed by Alphonse Noland > 06/10/21 0904
[2021-06-10 09:28] LABS: HEPATITIS C VIRUS ABY INDEX 0.1 INDEX (<0.8)
[2021-06-10 09:29] LABS: HEPATITIS B CORE ANTIBODY IGM NEGATIVE (NEGATIVE)
[2021-06-10] MEDS ORDERED: HOME MED LIST COMPLETE! XX SCH (09:55)
--- NOTE | 2021-06-10 11:32 | IPNPDOC ---
Text Note Date of Service The patient was seen on 06/10/21. NOTE Subjective: Objective: GENERAL APPEARANCE: Well-nourished, well-developed, not in apparent distress HEENT: Extraocular movements intact, no scleral icterus, mucous membranes moist and pink CARDIOVASCULAR: Regular rate and rhythm no murmurs rubs or gallops no lower extremity edema LUNGS: Clear to auscultation bilaterally on room air ABDOMEN: Soft and nontender NEUROLOGICAL: speech is not dysarthric, CN3-12 intact, moving all extremities without asymmetric weakness PSYCHIATRIC: AOx3 LABORATORY DATA: Reviewed WBC 5.5 hgb 8.1 platelets 173 na 137 K 3.9 BUN 104 Cr 7.33 IMAGIN view Chest x-ray -Mild left pleural effusion, new since 09/17/2020. 2. Minimal left base infiltrate or atelectasis which is similar to slightly decreased. 3. Otherwise stable chest. MICROBIOLOGY: The respiratory panel is negative ASSESSMENT: Mr. Hernandez is a 75-year-old with a history of HTN, NIDDM & CKD 3 who was sent [address] Dr[address] Oneil's office for evaluation of LAILA on CKD. 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 Tate for recs -strict I/Os -Hold ACEi and HCTZ 2 Uncontrolled hypertension -Hold ACEi and HCTZ -holding BB with HR 60s due for lopressor 100 BID per home dosing -continue PRN hydral PO with parameters 3 normocytic normochromic anemia Likely due to chronic renal disease -Follow-up iron studies, type and screen, & stool occult 4 Chronic Monocytosis He also had monocytosis during his admission in August He also has eosinophilia, neutropenia, anemia, and unintentional weight loss which are concerning for malignancy -Follow-up peripheral smear 5 Acute cough Likely due to bronchitis versus other cause TBD -His respiratory panel was negative -continue home albuterol -no evidence of PNA on imaging and labs 6 NIDDM2 The patient reports that his diabetic meds were discontinued because of hypoglycemia -fingersticks and A1c /sliding scale insulin with hypoglycemia protocol DVT px w TEDs and Sequentials: -Because of the uremia, which causes platelet dysfunction, he is at high risk of bleeding. Dispo: home after at least 2 midnights stay VS,Jennifer, I+O VS, Jennifer, I+O Laboratory Tests 06/09/21 20:21 06/10/21 05:20 Vital Signs Date Time Temp Pulse Resp B/P (MAP) Pulse Ox O2 Delivery O2 Flow Rate FiO2 06/10/21 06:00 98.0 69 18 138/63 (88) 100 Room Air JEANE MARIN MD Jun 10, 2021 09:58
--- NOTE | 2021-06-10 12:17 | REP ---
INDICATION: Renal Failure, Cyst of kidney. COMPARISON: None. TECHNIQUE: Routine FINDINGS: Right kidney: Size: 11.7 x 4.2 x 4.6 cm. Increased echogenicity. Upper pole cyst 2.8 x 2.6 x 2.2 cm. Lower pole cyst 3.8 x 3.3 x 4.1 cm. Additional smaller cyst pain no hydronephrosis, mass or calculus Left kidney: Size: 13 x 5 x 6.4 cm. Increased echogenicity. Multiple cyst. The largest are in the upper pole measuring 3.1 x 3 x 2.9 cm, 2.8 x 2.2 x 2.7 cm and 3.1 x 2.9 x 2.8 cm. No mass or calculus. No hydronephrosis. No significant change when compared to the previous study. IMPRESSION: Multiple bilateral renal cysts. Increased echogenicity of the kidneys consistent with chronic renal disease. No hydronephrosis, mass or calculus on either side. <Electronically signed by Gilson Nicole > 06/10/21 [id number]
[2021-06-10] MEDS: MULTIVITAMINS/MINERALS THERAP 1 TAB PO SCH (12:29)
[2021-06-10] MEDS: CLOPIDOGREL 75 MG TAB PO SCH (12:30)
--- NOTE | 2021-06-10 13:45 | REP ---
INDICATION: Renal Failure, Cyst of kidney. COMPARISON: None. TECHNIQUE: Transvesical scanning FINDINGS: The pre void urinary bladder volume calculation is 197 cc. The postvoid urinary bladder volume calculation is 82 cc. This renders a 42% postvoid residual. No large masses or gross mucosal abnormalities were noted. IMPRESSION: As above <Electronically signed by Alphonse Noland > 06/10/21 [id number]
[2021-06-10 14:00] VITALS: BP 148/70
[2021-06-10] MEDS ORDERED: DARBEPOETIN 100 MCG/0.5 ML *DIALYSIS* SYRINGE (J0882) IV SCH (16:30)
[2021-06-10] MEDS: **hydrALAZINE** 10 MG TAB PO SCH ×2 (16:39→21:10)
--- NOTE | 2021-06-10 17:32 | CR ---
CONSULTATION DATE: 06/10/2021 REQUESTING PHYSICIAN: Dr. Simi Kenny CONSULTING PHYSICIAN: Dr. Erin Tate REASON FOR CONSULTATION: Management of renal failure. CHIEF COMPLAINT: Patient was sent to the hospital from the nephrology clinic. HISTORY OF PRESENT ILLNESS: Robi Hernandez is a 75-year-old male with past medical history of ilp-tjmesfa-ogemqcspx diabetes, hypertension, history of COVID-19 infection in August 2020, chronic kidney disease, stage III to early stage IV, baseline creatinine of 4.3 as of August 2020. He was referred to the nephrology service for the first time and was seen yesterday in the clinic by Dr. Steven Oneil for evaluation of the acute kidney injury superimposed on chronic kidney disease; however, patient was found to have significantly abnormal labs. His creatinine was more than 7. His BUN was more than 100. Patient was sent to the hospital for further evaluation and management. He was admitted under the hospitalist service, and nephrology service was called on board for further help in the management of this patient. I saw and evaluated the patient today morning at the bedside. He denies any chest pain, shortness of breath, nausea, or vomiting. He does report that he has lost about 20 pounds of unintentional weight over the past month or so. MEDICAL HISTORY: 1. Chronic kidney disease, stage III to early stage IV. 2. Hyperparathyroidism. 3. COVID-19 infection August last year. 4. Mbp-qrbssnp-eyrqoxynz diabetic. 5. Hypertension. SURGICAL HISTORY: No significant past surgical history. ALLERGIES: He is allergic to PENICILLIN. FAMILY HISTORY: No significant family history of end-stage renal disease in immediate family members. SOCIAL HISTORY: Patient lives at home with his . He quit smoking in 1983. Denies any illicit drug abuse. REVIEW OF SYSTEMS: CONSTITUTIONAL: Denies any fevers or chills. EYES: Denies any blurry vision or double vision. ENT: Denies any dysphagia or odynophagia. CARDIOVASCULAR: Denies any chest pain or palpitations. RESPIRATORY: Denies any shortness of breath or cough. GASTROINTESTINAL: Denies any nausea or vomiting. Does report decreased oral intake. GENITOURINARY: Reports decreased urine output. MUSCULOSKELETAL: Denies any muscle aches and pains. SKIN: Denies any rashes or ulcer. ENDOCRINE: Reports history of diabetes. CENTRAL NERVOUS SYSTEM: Denies any strokes or seizures. All other review of systems is negative. PHYSICAL EXAMINATION: VITAL SIGNS: Temperature is 97.8 degrees Fahrenheit, blood pressure 148/70, pulse 78, respiratory rate of 22, saturating 96% on room air. HEAD AND NECK: Extraocular muscles are intact. Pupils equally round and reactive to light. Mucous membranes are moist. Neck is supple. There is no jugular venous distention (JVD). CARDIOVASCULAR: S1, S2, regular rate. No significant edema of the bilateral lower extremities. RESPIRATORY: Mildly decreased breath sounds at the bases and decreased vocal resonance at the left base. ABDOMEN: Sof. Positive bowel sounds. Nontender. No organomegaly. GENITOURINARY: Bladder is not palpable. MUSCULOSKELETAL: No clubbing or cyanosis. Pulses are 2+. CENTRAL NERVOUS SYSTEM: No focal deficit. Power is 5/5 in all extremities. PSYCHIATRIC: Normal mood and affect. LABORATORY REVIEW: CBC showed a WBC 5.5, hemoglobin 8.1, platelets are 173. INR is 1.02. BMP showed sodium 137, potassium 3.9, chloride 105, bicarbonate 20, BUN 104, creatinine is 7.3. Hemoglobin A1c 7.8. Calcium 7.9. Iron 49, TIBC 264, transferrin saturation is 18.6, ferritin is 105. Triglycerides are 200, total cholesterol is 201, LDL 128, HDL 33. PTH is 148. IMAGING: A renal ultrasound was done, which showed multiple bilateral renal cysts, increased echogenicity of the kidneys, consistent with chronic medical renal disease. Bladder ultrasound was done, which showed no masses and no urinary retention. Chest x-ray done today morning showed persistent left basilar opacity and pleural effusion. HOME MEDICATIONS: - vitamin C 500 mg by mouth daily - Plavix 75 mg by mouth daily - glyburide 5 mg by mouth daily - lisinopril/hydrochlorothiazide 20/25 mg tablet one tablet daily - metformin 1 gram by mouth twice a day - metoprolol 100 mg by mouth twice a day - multivitamin and zinc 50 mg by mouth daily CURRENT INPATIENT MEDICATIONS: - Tylenol as needed - albuterol as needed. - He was getting vitamin C. I have stopped it because of renal failure. - Tessalon Perles - Plavix 75 mg by mouth daily - heparin subcutaneous - hydralazine 10 mg by mouth every 8 hours - insulin Lispro sliding scale - multivitamin one tablet by mouth daily ASSESSMENT AND PLAN: 1. Acute renal failure superimposed on chronic kidney disease. Patient's best baseline creatinine from August 2020 was already 3.8. He was seen for the first time yesterday in the nephrology clinic. I believe patient has approached end-stage renal disease, and on top of that patient was receiving metformin and angiotensin-converting enzyme (DENICE) inhibitor as outpatient, which were recently stopped. I do not see any need for intravenous (IV) fluid hydration, since patient already has left-sided effusion. I have discussed the initiation of hemodialysis with this patient, and he agrees with the plan. I requested vascular surgery to place a tunneled dialysis catheter. Patient will be started on hemodialysis once we have the access available. 2. Anemia, end-stage renal disease, and iron deficiency. Patient will be started on Venofer injections with dialysis, and he will also get Aranesp with dialysis. 3. Normal anion gap metabolic acidosis. It is secondary to renal failure. Acidosis should get better with hemodialysis. No need of bicarbonate administration at this time. 4. Diabetes mellitus, type 2, iac-osjrbog-pujsgpcyl diabetes. Patient's A1c is 7.8, which is adequate for his age. Avoid further use of metformin in this patient. Okay to use insulin sliding scale or sulfonylurea. 5. Chronic kidney disease, mineral bone disease. Patient has moderate hyperphosphatemia with elevated parathyroid hormone (PTH) level. PTH level is optimal for renal failure. I would start him on phosphorus binders if his phosphorus stays high despite hemodialysis. 6. Hypotension. Avoid further use of DENICE inhibitors at this time. Blood pressure is acceptable at this time right now. Okay to continue beta blockers or calcium channel blockers if needed. Currently he is receiving hydralazine. 7. Left-sided pleural effusion. It is likely secondary to renal failure. I am hopeful that with hemodialysis and fluid removal his effusion should get better. Thank you for involving me in the care of this patient. I shall be happy to follow the patient along with you tomorrow morning.
[2021-06-10 21:01] VITALS: BP 158/71
[2021-06-11 00:02] LABS: AMORPHOUS SEDIMENT SMALL (NEGATIVE); APPEARANCE, URINE HAZY (CLEAR); BACTERIA, URINE AUTO NEGATIVE (NEGATIVE); BILIRUBIN, URINE AUTO NEGATIVE (NEGATIVE); BLOOD, URINE BLOOD 1+ (NEGATIVE); COLOR, URINE YELLOW (YELLOW); GLUCOSE, URINE (UA) AUTO 2+ mg/dL (NEGATIVE); KETONE, URINE AUTO NEGATIVE (NEGATIVE); LEUKOCYTE ESTERASE, URINE AUTO NEGATIVE (NEGATIVE); MUCUS, URINE SMALL (NEGATIVE); NITRITE, URINE AUTO NEGATIVE (NEGATIVE); PROTEIN, URINE AUTO 3+ mg/dL (NEGATIVE); RBC, URINE AUTO 5 /HPF (0-3); SQUAMOUS EPITHELIAL CELL UR AU 0 /HPF (0-6); UROBILINOGEN, URINE AUTO 0.2 mg/dL (0.0-2.0); WBC, URINE AUTO 1 /HPF (0-3)
[2021-06-11 00:28] LABS: CREATININE,RANDOM URINE 64.9 MG/DL; TOTAL PROTEIN,RANDOM URINE 241.7 MG/DL (0.0-12.0)
[2021-06-11] MEDS: **hydrALAZINE** 10 MG TAB PO SCH ×3 (05:40→20:47)
[2021-06-11] MEDS: HEPARIN SOD (PORCINE) 5000UNITS/ML 1ML VIAL/SYRINGE SC SCH ×3 (05:41→21:13)
[2021-06-11 05:58] VITALS: BP 145/68
[2021-06-11] MEDS: MULTIVITAMINS/MINERALS THERAP 1 TAB PO SCH (08:01)
[2021-06-11] MEDS: CLOPIDOGREL 75 MG TAB PO SCH (08:01)
[2021-06-11] MEDS: HumaLOG INSULIN (NovoLOG) PER UNIT SC SCH ×4 (08:02→20:45)
[2021-06-11 10:56] LABS: COMPLEMENT C3 104 MG/DL (90-180); COMPLEMENT C4 24 MG/DL (10-40); TOTAL PROTEIN 6.1 GM/DL (6.4-8.2)
[2021-06-11] MEDS: BENZONATATE 100 MG CAP PO PRN (11:09)
--- NOTE | 2021-06-11 12:38 | IPNPDOC ---
Text Note Date of Service The patient was seen on 06/11/21. NOTE Subjective: -No complaints this morning -Was seen by nephrology and agreed to HD, pending permacath placement by vascular surgery at this time Objective: GENERAL APPEARANCE: Well-nourished, well-developed, not in apparent distress HEENT: Extraocular movements intact, no scleral icterus, mucous membranes moist and pink CARDIOVASCULAR: Regular rate and rhythm no murmurs rubs or gallops no lower extremity edema LUNGS: Clear to auscultation bilaterally on room air ABDOMEN: Soft and nontender NEUROLOGICAL: speech is not dysarthric, CN3-12 intact, moving all extremities without asymmetric weakness PSYCHIATRIC: AOx3 LABORATORY DATA: Reviewed IMAGIN view Chest x-ray -Mild left pleural effusion, new since 09/17/2020. 2. Minimal left base infiltrate or atelectasis which is similar to slightly decreased. 3. Otherwise stable chest. MICROBIOLOGY: The respiratory panel is negative ASSESSMENT: Mr. Hernandez is a 75-year-old with a history of HTN, NIDDM & CKD [address] Oneil's office for evaluation of LAILA on CKD. PLAN: 1 ESRD with tertiary hyperparathyroidism and anemia -telemetry -Nephrology onboard, Dr. Tate consulted vascular surgery for permacath placement -strict I/Os -Hold ACEi and HCTZ -getting venofer per nephrology 2 Uncontrolled hypertension -Hold ACEi and HCTZ -holding BB with HR 60s due for lopressor 100 BID per home dosing -hydral PO with parameters 3 normocytic normochromic anemia -2/2chronic renal disease -venofer per nephrology 4 Chronic Monocytosis He also had monocytosis during his admission in August He also has eosinophilia, neutropenia, anemia, and unintentional weight loss which are concerning for malignancy -Follow-up peripheral smear 5 Acute cough Likely due to bronchitis versus other cause TBD -His respiratory panel was negative -continue home albuterol -no evidence of PNA on imaging and labs 6 NIDDM2 The patient reports that his diabetic meds were discontinued because of hypoglycemia -fingersticks and A1c /sliding scale insulin with hypoglycemia protocol DVT px w TEDs and Sequentials Dispo: home after at least 2 midnights stay VS,Fishbone, I+O VS, Fishbone, I+O Vital Signs Date Time Temp Pulse Resp B/P (MAP) Pulse Ox O2 Delivery O2 Flow Rate FiO2 06/11/21 05:58 99.4 71 16 145/68 (93) 98 Room Air I&O- Last 24 Hours up to 6 AM 06/11/21 06:00 Intake Total 1220 ml Output Total 150 ml Balance 1070 ml JEANE MARIN MD Jun 11, 2021 09:22
[2021-06-11] MEDS ORDERED: LIDOCAINE 1% MDV 20ML VIAL As Ordered ONE (13:08)
--- NOTE | 2021-06-11 13:11 | IPN ---
PROGRESS NOTE DATE: 06/11/2021 SUBJECTIVE: Patient was seen and examined at the bedside today morning. He is afebrile and hemodynamically stable. There is urinalysis done which shows some proteinuria and hematuria. Otherwise, he denies any active complaints. Patient is going to have a tunneled dialysis catheter placed by vascular surgery today and he will be starting dialysis. OBJECTIVE: VITAL SIGNS: Temperature 99.4 degrees Fahrenheit, blood pressure 145/68, pulse 71, respiratory rate 16, saturating 98% on room air. INTAKE/OUTPUT: Urine output recorded as 150 mL. Weight in the bed scale was 78.9 kg yesterday. PHYSICAL EXAMINATION: GENERAL: Patient is awake, alert and oriented x3, lying in bed in no apparent distress. HEAD/NECK: Extraocular muscles intact. Pupils equally round and reactive to light. Mucous membranes are moist. Neck is supple. There is no JVD. CVS: S1, S2, regular rate. No edema of the bilateral lower extremities. RESPIRATORY: Chest is clear to auscultation bilaterally. Bilateral equal air entry. No rales or rhonchi. ABDOMEN: Soft, positive bowel sounds, nontender. No organomegaly. MUSCULOSKELETAL: No clubbing or cyanosis. Pulses are 2+. CLAMSHELL ENGINEER: No focal deficit. Power is 5/5 in all extremities. LABORATORY REVIEW: All of his labs from yesterday were reviewed. His urinalysis showed 3+ protein and 1+ blood. Spot urine protein creatinine ratio is more than 3. I have ordered autoimmune serology to rule out any possibility of glomerulonephritis. CURRENT INPATIENT MEDICATIONS: Patient's medications were all reviewed by myself. His Vitamin C has been stopped and he has been started on Venofer and Aranesp to be given during dialysis. ASSESSMENT AND PLAN: 1. Acute renal failure superimposed on chronic kidney disease: Patient will be getting a tunneled dialysis catheter and after that he will be started on dialysis today. I have requested the S for placement of patient as outpatient in [facility]. 2. Proteinuria and hematuria: I have ordered autoimmune serology to make sure patient does not have any glomerulonephritis. No urgent need of hemodialysis since the patient's kidneys are echogenic and renal failure is chronic. 3. Anemia and end-stage renal disease: Continue Venofer and Aranesp with dialysis. Hemoglobin is expected to improve with that. 4. Diabetes mellitus type 2: Okay to continue insulin sliding scale. He is not a candidate for Metformin. 5. Chronic kidney disease/mineral bone disease: PTH level is acceptable for renal failure. Phosphorus binders will be started if phosphorus stays high after dialysis. 6. Hypertension: Continue current dose of Hydralazine. Avoid DENICE inhibitors or angiotensin receptor blockers at this time.
[2021-06-11] MEDS ORDERED: MIDAZOLAM INJ 2MG/2ML VIAL (J2250 PER 1MG) As Ordered ONE (13:25)
[2021-06-11] MEDS ORDERED: fentaNYL 100 MCG/2 ML INJECTION (J3010) As Ordered ONE (13:25)
--- NOTE | 2021-06-11 14:34 | CR.PDOC ---
General Date of Consultation: Jun 11, 2021 Referring Provider: CARLOS ESTRADA MD Consultation REASON FOR CONSULTATION/CHIEF COMPLAINT: ESRD with need for permanent HD access P/E: AAOx3 comfortable. palpable pulses in both upper extremities, he is awake and comfortable, mood and affect are normal. No large veins noted. Will need to get vein mapping afterwards for AV fistula creation in future. Impression: 75 year old with CKD needs permanent HD access Plan: Will place a permanent HD access catheter in the Right IJ if possible. Vital Signs/I&O Vital Signs Date Time Temp Pulse Resp B/P (MAP) Pulse Ox O2 Delivery O2 Flow Rate FiO2 06/11/21 13:50 64 20 100 Nasal Cannula 2.0 06/11/21 12:40 99.4 06/11/21 05:58 145/68 (93) I&O- Last 24 Hours up to 6 AM 06/11/21 06:00 Intake Total 1220 ml Output Total 150 ml Balance 1070 ml Laboratory Data Labs 24H Laboratory Tests 2 06/10/21 17:21: Bedside Glucose (Misc Panel) 201H 06/10/21 20:23: Bedside Glucose (Misc Panel) 217H 06/10/21 23:38: Urine Color YELLOW, Urine Appearance HAZY, Urine pH 5.0, Urine Specific Cashion 1.010, Urine Protein 3+H, Urine Glucose (Auto)(UA) 2+H, Urine Ketones (Auto) NEGATIVE, Urine Blood 1+H, Urine Nitrite NEGATIVE, Urine Bilirubin NEGATIVE, Urine Urobilinogen 0.2, Urine Leukocyte Esterase (Auto) NEGATIVE, Urine WBC (Auto) 1, Urine RBC (Auto) 5H, Urine Hyaline Casts (Auto) 0, Urine Bacteria (Auto) NEGATIVE, Urine Squamous Epithelial Cells 0, Urine Amorphous Sediment (Auto) SMALLH, Urine Mucus (Auto) SMALL, Urine Sperm (Auto) , Urine Random Creatinine 64.9, Urine Random Total Protein 241.7H 06/11/21 06:23: Bedside Glucose (Misc Panel) 140H 06/11/21 09:59: Total Protein (PEP) 6.1L, Complement C3 104, Complement C4 24, Syphilis Serology NONREACTIVE 06/11/21 11:32: Bedside Glucose (Misc Panel) 282H Allergies Coded Allergies: Penicillins (Verified Allergy, Severe, 09/17/20) Home Medications Scheduled Ascorbic Acid (Vitamin C) 500 Mg Tablet, 500 MG PO DAILY, (Reported) Clopidogrel Bisulfate (Plavix) 75 Mg Tablet, 75 MG PO DAILY, (Reported) Glyburide (Glyburide) 5 Mg Tablet, 5 MG PO DAILY, (Reported) Lisinopril/Hydrochlorothiazide (Lisinopril-Hctz 20-25 mg Tab) 1 Each Tablet, 1 TAB PO DAILY, (Reported) Metformin HCl (Metformin HCl) 1,000 Mg Tablet, 1,000 MG PO BID, (Reported) Metoprolol Tartrate (Metoprolol Tartrate) 100 Mg Tablet, 100 MG PO BID, (Reported) Multivit-Min/FA/Lycopen/Lutein (Centrum Silver Ultra Men's Tab) 1 Each Tablet, 1 TAB PO DAILY, (Reported) Zinc (Zinc) 50 Mg Tablet, 50 MG PO DAILY, (Reported) Jaime Pete MD Jun 11, 2021 14:34
[2021-06-11] MEDS ORDERED: [UNRECOGNIZED DRUG - OTHER] IM ONE (15:00)
[2021-06-11] MEDS: IRON SUCROSE 100MG 5ML VIAL (J1756 PER 1MG) IV SCH (16:27)
--- NOTE | 2021-06-11 16:43 | REP ---
INDICATION: Vein mapping for AVF. COMPARISON: None. FINDINGS: Right upper extremity: Venous Basilic size mm Cephalic size mm Upper humerus 4.0 1.8 Lower humerus 3.5 2.7 nonocclusive clot Upper forearm 1.4 1.3 Lower forearm/wrist. 1.5 1.6 Median cubital 3.0 3.0 Arterial PSV Waveform Size mm Axillary 127 biphasic 6.1 Brachial 106 biphasic 4.0 Radial 91 bi/triphasic 2.1 Ulnar 114 bi/triphasic 3.6 Left upper extremity: Venous Basilic size mm Cephalic size mm Upper humerus 3.5 1.9 Lower humerus 3.1 1.8 Upper forearm 1.3 1.4 Lower forearm/wrist. 1.1 1.9 Median cubital 3.1 3.1 Arterial PSV Waveform Size mm Axillary 105 biphasic 7.2 Brachial 90 triphasic 4.5 Radial 81 triphasic 1.9 Ulnar 97 triphasic 3.6 IMPRESSION: There is a nonocclusive clot in the right cephalic vein at the lower humerus level. All other veins are negative for thrombus. <Electronically signed by Neville Galvan > 06/11/21 1640
[2021-06-11 22:00] VITALS: BP 158/54
[2021-06-12] MEDS: ACETAMINOPHEN TAB 650MG DOSE (2X325MG) PO PRN (00:08)
[2021-06-12] MEDS ORDERED: MORPHINE 2 MG/ML 1ML VIAL (J2270) IV PRN (03:20)
[2021-06-12] MEDS ORDERED: PERCOCET 5MG/325MG TAB PO PRN (03:20)
[2021-06-12 06:00] VITALS: BP 118/52
[2021-06-12] MEDS: HEPARIN SOD (PORCINE) 5000UNITS/ML 1ML VIAL/SYRINGE SC SCH ×3 (06:00→21:19)
[2021-06-12] MEDS: **hydrALAZINE** 10 MG TAB PO SCH ×3 (06:00→21:17)
--- NOTE | 2021-06-12 07:54 | RO ---
OPERATIVE NOTE DATE OF OPERATION: 06/11/2021 TIME OF PROCEDURE: 1:00 p.m. PREOPERATIVE DIAGNOSIS: End-stage renal disease with need for permanent hemodialysis access. POSTOPERATIVE DIAGNOSIS: End-stage renal disease with need for permanent hemodialysis access. PROCEDURE PERFORMED: Tunneled internal jugular (IJ) tip-to-cuff 19-cm dual-lumen hemodialysis catheter, tip position at the cavoatrial junction. SURGEON: Jaime Pete MD SUPERVISOR ROLLING ROOM: No PA or qualified resident was available for the procedure. ANESTHESIA: Monitored sedation was not used as this procedure was performed with local anesthetic only; a total of 8 mL of 1% lidocaine was used for anesthesia. SPECIMEN: None. ESTIMATED BLOOD LOSS: Minimal. COMPLICATIONS: None. DRAINS: None. INDICATIONS: Mr. Robi Hernandez is a 75-year-old gentleman with end-stage renal disease. Dr. Tate asked me if I could place a permanent catheter for hemodialysis, and I discussed this with the patient and he agreed to move forward. PROCEDURE IN DETAIL: The patient was taken to the interventional suite. The risks, benefits and alternatives were explained to him. A timeout was performed confirming the correct side and site of the procedure. Procedure was started once the timeout was performed. The neck was prepped and draped in standard sterile fashion on the right side. His head was turned to the left slightly. We started by ultrasound-guided access of the right internal jugular with a micropuncture needle and sheath which, once we were able to gain access into the right internal jugular, the micropuncture sheath was removed and under fluoroscopy a Super Stiff Amplatz wire was inserted in position just above the right ventricle. With the catheter and wire now in place, a skin delfino was made at the jugular venotomy site. Through a separate stab incision which was anesthetized with 1% lidocaine on the right chest wall in the infraclavicular region, I then tunneled the 19-cm tip-to-cuff dual-lumen hemodialysis catheter and positioned it through the jugular venotomy site taking care not to twist or kink it. We then serially dilated up the jugular vein venotomy with 9, 12 and 14-Persian Peel-Away sheaths. With the Peel-Away sheath in place under fluoroscopy, I then inserted the hemodialysis catheter, again taking care not to twist or kink. I them peeled away the sheath and then passed an Amplatz wire through each lumen. We then flushed and withdrew heparin and saline through both lumens and both lumens flushed and withdrew without any difficulty. A fluoroscopic spot image was then saved and then the catheter was secured to the skin with 2-0 Prolene and heparin locked with heparinized saline. A 4-0 Monocryl and skin glue was used to close the jugular venotomy site. The patient's catheter was then dressed by the intervention radiology (IR) staff and the patient was transferred to the recovery room in stable condition. I was present and performed all critical portions of the procedure. OUTCOME: Successful right internal jugular tunneled dual-lumen hemodialysis catheter which can be used immediately for hemodialysis. I did communicate with the residential treatment staff immediately afterwards also that the catheter could be used.
[2021-06-12] MEDS: CLOPIDOGREL 75 MG TAB PO SCH (08:19)
[2021-06-12] MEDS: MULTIVITAMINS/MINERALS THERAP 1 TAB PO SCH (08:19)
[2021-06-12] MEDS: HumaLOG INSULIN (NovoLOG) PER UNIT SC SCH ×4 (08:19→21:18)
[2021-06-12 08:32] LABS: BASO % 0.4 % (0.0-1.0); EOS # 0.2 10^3/uL (0.0-0.5); EOS % 4.2 % (0.0-3.0); HEMATOCRIT 24.5 % (42.0-52.0); HEMOGLOBIN 8.1 g/dl (13.5-17.5); LYMPH # 0.9 10^3/uL (1.5-5.0); LYMPH % 19.9 % (24.0-44.0); MEAN CORPUSCULAR HEMOGLOBIN 30.8 pg (27.0-33.0); MEAN CORPUSCULAR HGB CONC 33.1 g/dl (32.0-36.5); MEAN CORPUSCULAR VOLUME 93.2 fl (80.0-96.0); MONO # 0.7 10^3/uL (0.0-0.8); MONO % 15.3 % (2.0-8.0); NEUTROPHILS # 2.7 10^3/uL (1.5-8.5); NEUTROPHILS % 59.8 % (36.0-66.0); PLATELET COUNT, AUTOMATED 175 10^3/uL (150-450); RED BLOOD COUNT 2.63 10^6/uL (4.30-6.10); WHITE BLOOD COUNT 4.6 10^3/uL (4.0-10.0)
[2021-06-12 08:54] LABS: ALBUMIN 2.9 GM/DL (3.2-5.2); CALCIUM LEVEL 8.7 MG/DL (8.8-10.2); CREATININE FOR GFR 5.95 MG/DL (0.70-1.30); GLOMERULAR FILTRATION RATE 9.9 (>42); PHOSPHORUS LEVEL 4.3 MG/DL (2.5-4.9); POTASSIUM SERUM 4.1 MEQ/L (3.5-5.1)
[2021-06-12] MEDS: BENZONATATE 100 MG CAP PO PRN ×2 (09:01→19:49)
[2021-06-12] MEDS: IRON SUCROSE 100MG 5ML VIAL (J1756 PER 1MG) IV SCH (10:22)
--- NOTE | 2021-06-12 11:09 | IPNPDOC ---
Text Note Date of Service The patient was seen on 06/12/21. NOTE Subjective: -No complaints this morning -s/p permacath by vascular surgery yesterday, now started on HD, nephrology requested outpatient chair. Objective: GENERAL APPEARANCE: Well-nourished, well-developed, not in apparent distress HEENT: Extraocular movements intact, no scleral icterus, mucous membranes moist and pink CARDIOVASCULAR: Regular rate and rhythm no murmurs rubs or gallops no lower extremity edema LUNGS: Clear to auscultation bilaterally on room air ABDOMEN: Soft and nontender NEUROLOGICAL: speech is not dysarthric, CN3-12 intact, moving all extremities without asymmetric weakness PSYCHIATRIC: AOx3 LABORATORY DATA: Reviewed IMAGIN view Chest x-ray -Mild left pleural effusion, new since 09/17/2020. 2. Minimal left base infiltrate or atelectasis which is similar to slightly decreased. 3. Otherwise stable chest. MICROBIOLOGY: The respiratory panel is negative ASSESSMENT: Mr. Hernandez is a 75-year-old with a history of HTN, NIDDM & CKD 3 [address] was sent [address] Dr[address] Oneil's office for evaluation of LAILA on CKD. PLAN: 1 ESRD with tertiary hyperparathyroidism and anemia -telemetry -Nephrology onboard, s/p vascular surgery permacath placement on 06/11, no started on HD -strict I/Os -Discontinued ACEi and HCTZ -getting venofer per nephrology 2 Uncontrolled hypertension -Hold ACEi and HCTZ -holding BB with HR 60s due for lopressor 100 BID per home dosing -hydral PO with parameters 3 normocytic normochromic anemia -2/2chronic renal disease -venofer per nephrology 4 Chronic Monocytosis He also had monocytosis during his admission in August He also has eosinophilia, neutropenia, anemia, and unintentional weight loss which are concerning for malignancy -Follow-up peripheral smear 5 Acute cough Likely due to bronchitis versus other cause TBD -His respiratory panel was negative -continue home albuterol -no evidence of PNA on imaging and labs 6 NIDDM2 The patient reports that his diabetic meds were discontinued because of hypoglycemia -fingersticks and A1c /sliding scale insulin with hypoglycemia protocol DVT px w TEDs and Sequentials Dispo: home after at least 2 midnights stay. Will make ALC at this time, pending HD chair confirmation. VS,Fishbone, I+O VS, Fishbone, I+O Laboratory Tests 06/12/21 08:18 Vital Signs Date Time Temp Pulse Resp B/P (MAP) Pulse Ox O2 Delivery O2 Flow Rate FiO2 06/12/21 06:00 98.4 73 20 118/52 (74) 98 Room Air 06/11/21 13:50 2.0 I&O- Last 24 Hours up to 6 AM 06/12/21 06:00 Intake Total 1120 ml Output Total 1000 ml Balance 120 ml JEANE MARIN MD Jun 12, 2021 09:24
[2021-06-12] MEDS ORDERED: [UNRECOGNIZED DRUG - OTHER] IM ONE (11:30)
[2021-06-12 14:00] VITALS: BP 110/58
[2021-06-12 22:00] VITALS: BP 159/70
--- NOTE | 2021-06-12 23:28 | IPN ---
PROGRESS NOTE DATE: 06/12/2021 SUBJECTIVE: Patient was seen and examined at the bedside today morning during hemodialysis procedure. He is getting the second session of hemodialysis today. First session was done yesterday. He is tolerating the hemodialysis procedure well. OBJECTIVE: VITAL SIGNS: Temperature 98.5 degrees Fahrenheit, blood pressure 110/58, pulse 90, respiratory rate 18, saturating 99% on room air. INTAKE/OUTPUT: Urine output recorded as 350 mL. Ultrafiltration with hemodialysis was 500 mL yesterday. Weight in the bed scale is 76.3 kg. PHYSICAL EXAMINATION: GENERAL: Patient is awake, alert and oriented x3, lying in bed in no apparent distress. HEAD/NECK: Extraocular muscles intact. Pupils equally round and reactive to light. Mucous membranes are moist. Neck is supple. He has a right IJ tunneled hemodialysis catheter. CVS: S1, S2, regular rate. No edema of the bilateral lower extremities. RESPIRATORY: Chest is clear to auscultation bilaterally. Bilateral equal air entry. No rales or rhonchi. ABDOMEN: Soft, positive bowel sounds, nontender. No organomegaly. MUSCULOSKELETAL: No clubbing or cyanosis. Pulses are 2+. EVENT PLANNING MANAGER: No focal deficit. Power is 5/5 in all extremities. LABORATORY REVIEW: CBC showed WBC 4.,6, hemoglobin 8.1, platelets 175,000. BMP showed sodium 141, potassium 4.1, chloride 109, bicarb 25, BUN 62, creatinine 5.9; it was 7.3 yesterday. Glucose 182. Calcium 8.7. Phosphorus 4.3. Albumin 2.9. IMMUNOLOGY: It is all pending. Syphilis serology is negative. Influenza and RSV negative. MICROBIOLOGY: Stool occult blood is positive. CURRENT INPATIENT MEDICATIONS: Patient's medications were all reviewed by myself. There is no significant change in the medications today as compared with yesterday. ASSESSMENT AND PLAN: 1. Acute renal failure: Patient is dialysis dependent now. He was dialyzed for the first time yesterday. Second session is being done today. He is pending placement at outpatient dialysis center. All the autoimmune serologies sent so far are pending. 2. Anemia and end-stage renal disease: Continue current dose of Venofer and Aranesp with dialysis. Hemoglobin level is stable. Transfuse p.r.n. if hemoglobin drops below 8. 3. Chronic kidney disease/mineral bone disease: Patient's phosphorus level is improving with hemodialysis. No need of phosphorus binder at this time. 4. Metabolic acidosis: Patient's acidosis is getting better with hemodialysis. 5. Left-sided pleural effusion: We are removing fluid during dialysis, however if pleural effusion persists, then he will need thoracentesis done next week.
[2021-06-13] MEDS: BENZONATATE 100 MG CAP PO PRN ×2 (03:14→17:46)
[2021-06-13 05:00] VITALS: BP 128/60
[2021-06-13] MEDS: **hydrALAZINE** 10 MG TAB PO SCH (05:00)
[2021-06-13] MEDS: HEPARIN SOD (PORCINE) 5000UNITS/ML 1ML VIAL/SYRINGE SC SCH ×3 (05:06→21:47)
[2021-06-13 06:00] VITALS: BP 128/60
[2021-06-13] MEDS: HumaLOG INSULIN (NovoLOG) PER UNIT SC SCH ×4 (08:16→21:00)
[2021-06-13] MEDS: MULTIVITAMINS/MINERALS THERAP 1 TAB PO SCH (08:16)
[2021-06-13] MEDS: CLOPIDOGREL 75 MG TAB PO SCH (08:16)
--- NOTE | 2021-06-13 13:05 | IPN ---
PROGRESS NOTE DATE: 06/13/2021 SUBJECTIVE: Patient was seen and examined at the bedside today morning. He is afebrile, hemodynamically stable. He has been dialyzed two days in a row. He reports that he is feeling much better. He denies any active complaints at this time. OBJECTIVE: Vital signs: Temperature is 98.5 degrees Fahrenheit, blood pressure 128/60, pulse is 73, respiratory rate of 18, saturating 97% on room air. Intake and output: Urine output recorded yesterday is 350 mL. Ultrafiltration with hemodialysis was 1 liter. Weight in the bed scale is 76.5 kg. PHYSICAL EXAMINATION: GENERAL: Patient is awake, alert, oriented times three, sitting up in bed in no apparent distress. HEAD AND NECK: Extraocular muscles are intact. Pupils equally round and reactive to light. Mucous membranes are moist. Neck is supple. He has a right internal jugular (IJ) tunneled hemodialysis catheter. CARDIOVASCULAR: S1, S2, regular rate. No edema of the bilateral lower extremities. RESPIRATORY: Chest is clear to auscultation bilaterally. Bilateral equal air entry. No rales or rhonchi. ABDOMEN: Soft. Positive bowel sounds. Nontender. No organomegaly. MUSCULOSKELETAL: No clubbing or cyanosis. Pulses are 2+. CENTRAL NERVOUS SYSTEM: No focal deficit. Power is 5/5 in all extremities. LABORATORY REVIEW: CBC showed a WBC 4.6, hemoglobin 8.1, platelets 175. BMP was done yesterday. There is no new lab available today. Immunology is pending except at C3 and C4 level, which is normal. CURRENT INPATIENT MEDICATIONS: Patient's medications were all reviewed by myself. No significant change in the medications today as compared with yesterday. ASSESSMENT AND PLAN: 1. End-stage renal disease. Patient has been dialyzed two days in a row. Next hemodialysis will be done on Tuesday. Etiology of renal failure is mostly diabetic nephropathy. 2. Anemia and end-stage renal disease. Continue Aranesp and Venofer. If hemoglobin drops below 8, then he will be given packed red blood cells (PRBC) transfusion. 3. Hypertension. Blood pressure is controlled with hydralazine only, and he is not getting much of the medication because of the holding parameters, so hydralazine will be stopped for now. 4. Left-sided pleural effusion. Volume status is getting better. Repeat another x-ray on Tuesday.
[2021-06-13 14:00] VITALS: BP 129/46
[2021-06-13] MEDS ORDERED: BENZONATATE 100 MG CAP PO ONE (23:45)
[2021-06-14] MEDS: BENZONATATE 100 MG CAP PO PRN ×3 (02:21→17:56)
[2021-06-14] MEDS: HEPARIN SOD (PORCINE) 5000UNITS/ML 1ML VIAL/SYRINGE SC SCH ×3 (05:09→21:10)
[2021-06-14] MEDS: ACETAMINOPHEN TAB 650MG DOSE (2X325MG) PO PRN (05:09)
[2021-06-14 06:00] VITALS: BP 149/69
[2021-06-14] MEDS: HumaLOG INSULIN (NovoLOG) PER UNIT SC SCH ×4 (07:39→21:00)
[2021-06-14] MEDS: MULTIVITAMINS/MINERALS THERAP 1 TAB PO SCH (07:59)
[2021-06-14] MEDS: CLOPIDOGREL 75 MG TAB PO SCH (07:59)
--- NOTE | 2021-06-14 19:27 | IPN ---
NEPHROLOGY PROGRESS NOTE DATE: 06/14/2021 SUBJECTIVE: Patient was seen and examined at the bedside today morning. He is afebrile, hemodynamically stable. Denies any active complaints. Last hemodialysis was on Tuesday. OBJECTIVE: VITAL SIGNS: Temperature 98.4 degrees Fahrenheit, blood pressure 149/69, pulse 78, respiratory rate 17, saturating 96% on room air. INTAKE AND OUTPUT: No significant urine output recorded. He has four recorded voids since overnight, but the amount is not known. Weight in the bed scale is 76.6 kg. PHYSICAL EXAMINATION: GENERAL: Patient is awake, alert, oriented times three, sitting up in the bed, no apparent distress. HEAD AND NECK EXAM: Extraocular muscles intact. Pupils equally round and reactive to light. Mucous membranes are moist. Neck is supple. He has a tunneled dialysis catheter. CARDIOVASCULAR: S1, S2. Regular rate. No edema of the bilateral lower extremities. RESPIRATORY: Chest is clear to auscultation bilaterally. Bilateral equal air entry. No rales or rhonchi. ABDOMEN: Soft. Positive bowel sounds. Nontender. No organomegaly MUSCULOSKELETAL: No clubbing or cyanosis. Pulses are 2+. CENTRAL NERVOUS SYSTEM (INSPECTOR BALANCE WHEEL MOTION): No focal deficit. Power is 5/5 in all extremities. LABORATORY REVIEW: CBC is from June 12, 2021 and BMP is also from June 12, 2021. CURRENT INPATIENT MEDICATIONS: Patient's medications were all reviewed by myself. There is no significant change in the medications today as compared with yesterday. ASSESSMENT AND PLAN: 1. End-stage renal disease. Patient was dialyzed on Tuesday. Next hemodialysis will be done tomorrow morning. 2. Anemia in end-stage renal disease. Continue Aranesp and Venofer. CBC will be checked in the morning. 3. Hypertension. Blood pressure is controlled with control of the volume status only. If needed, he can be started on calcium channel blockers. 4. Secondary hyperparathyroidism. Repeat phosphorus levels are within the acceptable range. Parathyroid hormone (PTH) is 148, which is acceptable for renal failure patients.
[2021-06-15] MEDS ORDERED: guaiFENesin DM *SUGAR FREE* 5ML**DIABETIC TUSSIN DM PO ONE (00:50)
[2021-06-15] MEDS: MULTIVITAMINS/MINERALS THERAP 1 TAB PO SCH (05:40)
[2021-06-15] MEDS: HEPARIN SOD (PORCINE) 5000UNITS/ML 1ML VIAL/SYRINGE SC SCH ×4 (05:40→20:58)
[2021-06-15] MEDS: CLOPIDOGREL 75 MG TAB PO SCH (05:40)
[2021-06-15 05:54] LABS: BASO % 0.3 % (0.0-1.0); EOS # 0.3 10^3/uL (0.0-0.5); EOS % 4.4 % (0.0-3.0); HEMATOCRIT 23.5 % (42.0-52.0); HEMOGLOBIN 7.5 g/dl (13.5-17.5); LYMPH # 0.9 10^3/uL (1.5-5.0); LYMPH % 13.6 % (24.0-44.0); MEAN CORPUSCULAR HEMOGLOBIN 30.2 pg (27.0-33.0); MEAN CORPUSCULAR HGB CONC 31.9 g/dl (32.0-36.5); MEAN CORPUSCULAR VOLUME 94.8 fl (80.0-96.0); MONO # 0.4 10^3/uL (0.0-0.8); MONO % 5.8 % (2.0-8.0); NEUTROPHILS # 4.9 10^3/uL (1.5-8.5); PLATELET COUNT, AUTOMATED 191 10^3/uL (150-450); RED BLOOD COUNT 2.48 10^6/uL (4.30-6.10); WHITE BLOOD COUNT 6.6 10^3/uL (4.0-10.0)
[2021-06-15 06:00] VITALS: BP 164/72
[2021-06-15 06:16] LABS: ALBUMIN 2.6 GM/DL (3.2-5.2); CALCIUM LEVEL 8.2 MG/DL (8.8-10.2); CREATININE FOR GFR 6.39 MG/DL (0.70-1.30); GLOMERULAR FILTRATION RATE 9.1 (>42); PHOSPHORUS LEVEL 2.9 MG/DL (2.5-4.9); POTASSIUM SERUM 3.8 MEQ/L (3.5-5.1)
[2021-06-15] MEDS: HumaLOG INSULIN (NovoLOG) PER UNIT SC SCH ×4 (07:50→20:57)
[2021-06-15] MEDS: IRON SUCROSE 100MG 5ML VIAL (J1756 PER 1MG) IV SCH (08:36)
[2021-06-15 09:45] VITALS: BP 144/68
[2021-06-15 10:00] VITALS: BP 160/59
[2021-06-15 10:15] VITALS: BP 172/74
[2021-06-15 10:51] VITALS: BP 187/70
--- NOTE | 2021-06-15 11:05 | IPN ---
NEPHROLOGY PROGRESS NOTE DATE: 06/15/2021 SUBJECTIVE: Mr. Hernandez is seen and examined this morning at the bedside and shortly thereafter in the hemodialysis unit receiving his third hemodialysis treatment. He is being transfused one unit of packed red blood cells with dialysis today. He complains of a nagging cough that he has had since a bout of COVID pneumonia back in August 2020. OBJECTIVE: PHYSICAL EXAMINATION: VITAL SIGNS: Temperature 98.9, pulse 82, respiratory rate 16, blood pressure 144/68, saturating 96% on room air. INTAKE AND OUTPUT: Intake yesterday was one liter. Weight in the bed scale today is not recorded. GENERAL APPEARANCE: The patient is seen at the bedside and shortly thereafter in the hemodialysis unit receiving his treatment, awake, alert, oriented, having a coughing fit with deep breaths. HEENT: The extraocular muscles are intact. Tongue is moist. NECK: Supple. There is a tunneled permacath presently in use. HEART: Regular. S1, S2. There is no leg edema. LUNGS: Scattered rhonchi and there are coughing fits with deep breaths. There is no accessory muscle use. There is no tachypnea. ABDOMEN: Soft and nontender. There are bowel sounds. EXTREMITIES: Pulses are 2+. There is no edema nor cyanosis. NEUROLOGICAL: He is awake, alert, oriented x3, cooperative with the physical exam. LAB REVIEW: White count 6.6, hemoglobin 7.5, platelet count 191. Sodium 137, potassium 3.8, bicarbonate 24, BUN 56, creatinine 6.3, phosphorous 2.9. Stool occult blood on June 12 was positive. INPATIENT MEDICATIONS: The patient is on Tylenol p.r.n., Tessalon Perles p.r.n., Plavix 75 mg p.o. daily, Aranesp 100 mcg with dialysis, Robitussin, Heparin 5,000 units subcutaneously q. 8 hourly, insulin, iron with dialysis, Morphine p.r.n., Percocet p.r.n. PROBLEMS: 1. End-stage renal disease - The patient was initiated on hemodialysis on this admission. Today is his third hemodialysis treatment. Vein mapping was done while he was here. He will have fistula creation as an outpatient. He needs to be arranged for outpatient hemodialysis. His electrolytes and volume status are acceptable. 2. Anemia of end-stage renal disease he continues with IV Venofer with dialysis along with Aranesp. I am also going to transfuse one unit packed red blood cells with dialysis today. I also note a positive fecal occult blood test and the patient should probably be seen by GI in the very near future if he is willing. 3. Hypertension - The patient was previously taking Lisinopril, Hydrochlorothiazide at home along with a beta oniel. His blood pressure medications have been held thus far during this hospitalization and his blood pressures are acceptable. I would keep him off of antihypertensive agents at present. If need be Amlodipine can be started. 4. Secondary hyperparathyroidism his current phosphorus level and parathyroid hormone level are both acceptable and no intervention is needed.
[2021-06-15] MEDS: BENZONATATE 100 MG CAP PO PRN ×2 (11:08→21:01)
[2021-06-15] MEDS: ACETAMINOPHEN TAB 650MG DOSE (2X325MG) PO PRN ×3 (11:09→23:55)
--- NOTE | 2021-06-15 15:32 | REP ---
INDICATION: Lt pleural effusion, ESRD. COMPARISON: 06/10/2021 latest prior TECHNIQUE: PA and lateral. FINDINGS: Since the last examination a central venous catheter has been placed the tip of which is in the superior vena cava. Cardiomediastinal silhouette is otherwise unchanged. There is cardiomegaly. There is a large left lower lobe opacity which is stable. There are no new abnormal opacities. There is no change in the osseous structures. IMPRESSION: Placement of the central venous catheter is in the only change from the prior exam. <Electronically signed by Alphonse Noland > 06/15/21 1529
[2021-06-16] MEDS: HEPARIN SOD (PORCINE) 5000UNITS/ML 1ML VIAL/SYRINGE SC SCH ×2 (04:54→14:00)
[2021-06-16] MEDS: ACETAMINOPHEN TAB 650MG DOSE (2X325MG) PO PRN (05:40)
[2021-06-16 06:00] VITALS: BP 145/67
[2021-06-16] MEDS: HumaLOG INSULIN (NovoLOG) PER UNIT SC SCH ×2 (08:40→12:06)
[2021-06-16] MEDS: CLOPIDOGREL 75 MG TAB PO SCH (08:40)
[2021-06-16] MEDS: MULTIVITAMINS/MINERALS THERAP 1 TAB PO SCH (08:40)
[2021-06-16 09:34] LABS: BASO % 0.4 % (0.0-1.0); EOS # 0.3 10^3/uL (0.0-0.5); EOS % 4.6 % (0.0-3.0); HEMATOCRIT 29.9 % (42.0-52.0); LYMPH # 0.7 10^3/uL (1.5-5.0); LYMPH % 9.5 % (24.0-44.0); MEAN CORPUSCULAR HEMOGLOBIN 30.6 pg (27.0-33.0); MEAN CORPUSCULAR HGB CONC 32.8 g/dl (32.0-36.5); MEAN CORPUSCULAR VOLUME 93.4 fl (80.0-96.0); MONO # 0.3 10^3/uL (0.0-0.8); MONO % 3.9 % (2.0-8.0); NEUTROPHILS # 5.6 10^3/uL (1.5-8.5); NEUTROPHILS % 80.3 % (36.0-66.0); PLATELET COUNT, AUTOMATED 229 10^3/uL (150-450); WHITE BLOOD COUNT 6.9 10^3/uL (4.0-10.0)
[2021-06-16 09:36] LABS: HEMOGLOBIN 9.8 g/dl (13.5-17.5)
[2021-06-16 09:45] LABS: CALCIUM LEVEL 8.9 MG/DL (8.8-10.2); CREATININE FOR GFR 4.7 MG/DL (0.70-1.30)
[2021-06-16] MEDS ORDERED: AMLO1TAB24 PO (12:16)
--- NOTE | 2021-06-16 12:44 | IPN ---
PROGRESS NOTE DATE: 06/16/2021 SUBJECTIVE: Mr. Hernandez is seen and examined this morning at the bedside. He reports his coughing is a little bit better. He was dialyzed yesterday without any issues. His treatment was uneventful; 1 liter was removed. He is pending outpatient hemodialysis set up. He has no complaints today. PHYSICAL EXAMINATION: VITAL SIGNS: Temperature 98.5, pulse 65, respiratory rate 17, blood pressure 145/67, saturating 97% on room air. INTAKE/OUTPUT: Intake yesterday was 1.5 liters. Dialysis removed 1 liter. Weight in the bed scale today is not recorded. GENERAL: Patient is seen sitting at the age of the bed with his leg tangling, awake, alert, oriented, having breakfast, in no distress. HEENT: Extraocular muscles are intact. Tongue is moist. Neck is supple. There is a tunneled hemodialysis catheter present in the right chest wall with dressing. LUNGS: Show diminished breath sounds at the bases and he has cough with deep inspiration. HEART: Heart sounds are regular, S1, S2. There is no leg edema. ABDOMEN: Soft and nontender. NEUROLOGIC: He is awake, alert, oriented x3, interactive, conversational and at baseline mentation. LABORATORY STUDIES: White count 6.9, hemoglobin 9.8, platelets 229,000. Sodium 136, potassium 4.0, bicarbonate 25, BUN 30, creatinine 4.7. IMAGING: Chest x-ray done yesterday shows a stable large left lower lobe opacity. INPATIENT MEDICATIONS: Reviewed by myself and no changes noted over the past day. PROBLEMS: 1. End-stage renal disease on hemodialysis: Patient is tolerating his hemodialysis treatments well. He will have a fistula created as an outpatient. Vein mapping was done while he was here. He has had three hemodialysis treatments inpatient thus far. He is pending arrangement for outpatient hemodialysis. Case management has been consulted. His electrolytes and volume status are acceptable. 2. Anemia of end-stage renal disease: He continues on I.V. Venofer with dialysis along with Aranesp. I also did transfuse 1 unit packed red blood cells yesterday. 3. Hypertension: Blood pressures are noted to be elevated and I am going to put the patient back on Amlodipine.
--- NOTE | 2021-06-16 13:26 | DS.PDOC ---
Discharge Summary General Date of Admission Jun 09, 2021 at 22:23 Date of Discharge 06/16/2021 Attending Physician: JEANE MARIN MD Discharge Summary PROCEDURES PERFORMED DURING STAY: Permacath placement by vascular surgery on 06/11 ADMITTING DIAGNOSES: LAILA on CKD4 DISCHARGE DIAGNOSES: ESRD now transitioned to HD Uremia i/s/o renal failure Hypertension DM COMPLICATIONS/CHIEF COMPLAINT: ESRD. HISTORY OF PRESENT ILLNESS: 75-year-old man with a history of [id number] diabetes, hypertension, history of COVID-19 infection in 08/2020, CKD4, baseline creatinine of 4.3 as of 08/2020 who was referred to the nephrology service and was seen in clinic but found to have a creatinine >7 and BUN >100 and therefore directed to the ED for admission to medicine with nephrology on consultation. HOSPITAL COURSE: On admission, On admission, he was hemodynamically stable, afebrile without acute complaints. Nephrology was consulted and he had permacath placed by vascular surgery and he was started on HD on 06/12. The rest of his course was as follows: 1 ESRD with tertiary hyperparathyroidism and anemia -Was initially placed on telemetry, that was stable in sinus rhythm and ultimately discontinued -Nephrology was consulted s/p vascular surgery permacath placement on 06/11, and started on HD -Discontinued ACEi and HCTZ -s/p venofer per nephrology 2 Uncontrolled hypertension -Discontinued ACEi and HCTZ -Stopped BB with HR 60s -started on amlodipine 5mg QD 3 normocytic normochromic anemia -2/2chronic renal disease -s/p venofer per nephrology 4 NIDDM2 The patient reports that his diabetic meds were discontinued because of hypoglycemia -fingersticks and A1c /sliding scale insulin with hypoglycemia protocol -discontinuing metformin from home list at discharge DISCHARGE MEDICATIONS: Please see below. ALLERGIES: Please see below. PHYSICAL EXAMINATION ON DISCHARGE: VITAL SIGNS: Please see below. GENERAL APPEARANCE: Well-nourished, well-developed, not in apparent distress HEENT: Extraocular movements intact, no scleral icterus, mucous membranes moist and pink CARDIOVASCULAR: Regular rate and rhythm no murmurs rubs or gallops no lower extremity edema LUNGS: Clear to auscultation bilaterally on room air ABDOMEN: Soft and nontender NEUROLOGICAL: speech is not dysarthric, CN3-12 intact, moving all extremities without asymmetric weakness PSYCHIATRIC: AOx3 LABORATORY DATA: Please see below IMAGIN view Chest x-ray -Mild left pleural effusion, new since 09/17/2020. 2. Minimal left base infiltrate or atelectasis which is similar to slightly decreased. 3. Otherwise stable chest. Bladder US: The pre void urinary bladder volume calculation is 197 cc. The postvoid urinary bladder volume calculation is 82 cc. This renders a 42% postvoid residual. No large masses or gross mucosal abnormalities were noted. Renal US: Right kidney: Size: 11.7 x 4.2 x 4.6 cm. Increased echogenicity. Upper pole cyst 2.8 x 2.6 x 2.2 cm. Lower pole cyst 3.8 x 3.3 x 4.1 cm. Additional smaller cyst pain no hydronephrosis, mass or calculus Left kidney: Size: 13 x 5 x 6.4 cm. Increased echogenicity. Multiple cyst. The largest are in the upper pole measuring 3.1 x 3 x 2.9 cm, 2.8 x 2.2 x 2.7 cm and 3.1 x 2.9 x 2.8 cm. No mass or calculus. No hydronephrosis. No significant change when compared to the previous study. IMPRESSION: Multiple bilateral renal cysts. Increased echogenicity of the kidneys consistent with chronic renal disease. No hydronephrosis, mass or calculus on either side. Upper extremity vein mapping US: Right upper extremity: Venous Basilic size mm Cephalic size mm Upper humerus 4.0 1.8 Lower humerus 3.5 2.7 nonocclusive clot Upper forearm 1.4 1.3 Lower forearm/wrist. 1.5 1.6 Median cubital 3.0 3.0 Arterial PSV Waveform Size mm Axillary 127 biphasic 6.1 Brachial 106 biphasic 4.0 Radial 91 bi/triphasic 2.1 Ulnar 114 bi/triphasic 3.6 Left upper extremity: Venous Basilic size mm Cephalic size mm Upper humerus 3.5 1.9 Lower humerus 3.1 1.8 Upper forearm 1.3 1.4 Lower forearm/wrist. 1.1 1.9 Median cubital 3.1 3.1 Arterial PSV Waveform Size mm Axillary 105 biphasic 7.2 Brachial 90 triphasic 4.5 Radial 81 triphasic 1.9 Ulnar 97 triphasic 3.6 IMPRESSION: There is a nonocclusive clot in the right cephalic vein at the lower humerus level. All other veins are negative for thrombus. Post permacath CXR: Since the last examination a central venous catheter has been placed the tip of which is in the superior vena cava. Cardiomediastinal silhouette is otherwise unchan ged. There is cardiomegaly. There is a large left lower lobe opacity which is stable. There are no new abnormal opacities. There is no change in the osseous structures. IMPRESSION: Placement of the central venous catheter is in the only change from the prior exam. PROGNOSIS: Good ACTIVITY: As tolerated DIET: Consistent carb, renal diet DISCHARGE PLAN: Home with close nephrology and PCP follow up. HD tomorrow per chair schedule DISPOSITION: Home DISCHARGE INSTRUCTIONS: Home with close nephrology and PCP follow up. HD tomorrow per chair schedule ITEMS TO FOLLOWUP ON ON OUTPATIENT: ESRD now on HD DISCHARGE CONDITION: Stable TIME SPENT ON DISCHARGE: minutes. Vital Signs/I&Os Vital Signs Date Time Temp Pulse Resp B/P (MAP) Pulse Ox O2 Delivery O2 Flow Rate FiO2 06/16/21 06:00 98.5 65 17 145/67 (93) 97 Room Air 06/11/21 13:50 2.0 I&O- Last 24 Hours up to 6 AM 06/16/21 06:00 Intake Total 1690 ml Output Total 1000 ml Balance 690 ml Laboratory Data Labs 24H Laboratory Tests 2 06/15/21 16:41: Bedside Glucose (Misc Panel) 326H 06/15/21 20:09: Bedside Glucose (Misc Panel) 172H 06/16/21 06:19: Bedside Glucose (Misc Panel) 150H 06/16/21 08:27: Immature Granulocyte % (Auto) 1.3, Neutrophils (%) (Auto) 80.3H, Lymphocytes (%) (Auto) 9.5L, Monocytes (%) (Auto) 3.9, Eosinophils (%) (Auto) 4.6H, Basophils (%) (Auto) 0.4, Neutrophils # (Auto) 5.6, Lymphocytes # (Auto) 0.7L, Monocytes # (Auto) 0.3, Eosinophils # (Auto) 0.3, Basophils # (Auto) 0.0, Nucleated Red Blood Cells % (auto) 0.0, Anion Gap 8, Glomerular Filtration Rate 13.0L, Calcium Level 8.9 06/16/21 11:54: Bedside Glucose (Misc Panel) 168H CBC/BMP Laboratory Tests 06/16/21 08:27 FSBS Laboratory Tests Test 06/15/21 16:41 06/15/21 20:09 06/16/21 06:19 06/16/21 11:54 Range/Units Bedside Glucose (Misc Panel) 326 172 150 168 83-110 MG/DL Microbiology Microbiology 06/12/21 Stool Occult Blood ([facility]OSKA) - Final, Complete Discharge Medications Scheduled Amlodipine Besylate (Amlodipine Besylate) 5 Mg Tablet, 5 MG PO QHS Ascorbic Acid (Vitamin C) 500 Mg Tablet, 500 MG PO DAILY, (Reported) Clopidogrel Bisulfate (Plavix) 75 Mg Tablet, 75 MG PO DAILY, (Reported) Glyburide (Glyburide) 5 Mg Tablet, 5 MG PO DAILY, (Reported) Multivit-Min/FA/Lycopen/Lutein (Centrum Silver Ultra Men's Tab) 1 Each Tablet, 1 TAB PO DAILY, (Reported) Zinc (Zinc) 50 Mg Tablet, 50 MG PO DAILY, (Reported) Allergies Coded Allergies: Penicillins (Verified Allergy, Severe, 09/17/20) JEANE MARIN MD Jun 16, 2021 13:26
[2021-06-16 17:08] LABS: ANCA-ATYPICAL <1:20 titer (Neg:<1:20); ANTI DS-DNA AB Negative (Negative); ANTINUCLEAR ANTIBODIES DIRECT Negative (Negative); CYTOPLASMIC NEUTROP AB ANCA-C <1:20 titer (Neg:<1:20); FREE KAPPA LIGHT CHAINS SERUM 120.5 mg/L (3.3-19.4); PERINUCLEAR AB ANCA-P <1:20 titer (Neg:<1:20)
[2021-06-16] MEDS ORDERED: amLODIPine 5 MG TAB PO SCH (21:00)
[2021-06-17 11:47] LABS: ALBUMIN 3.22 GM/DL (3.29-5.55); ALBUMIN % 52.8 % (55.8-66.1); ALPHA-1-GLOBULIN % 6.3 % (2.9-4.9); ALPHA-1-GLOBULINS 0.38 GM/DL (0.17-0.41); BETA-1-GLOBULINS 0.29 GM/DL (0.28-0.60); BETA-1-GLOBULINS % 4.8 % (4.7-7.2); BETA-2-GLOBULINS 0.31 GM/DL (0.19-0.55); GAMMA GLOBULIN % 13.1 % (11.1-18.8)
== END 2021-06-16 16:25 | disposition home or self-care (01) | DRG 673 ==
LOC: M ED 18:28 → M ED INP 22:23 → ENRESERV 23:55 → M MSPAV 06-10 00:59 → M ICU 06-16 12:54 → M MSPAV 06-16 12:56
PROVIDERS: ADMIT Internal Medicine; ATTEND Internal Medicine
PROC: 02HV33Z Insertion of Infusion Device into Superior Vena Cava, Percutaneous Approach (ICD-10-PCS; 2021-06-11)
PROC: 0JH60XZ Insertion of Tunneled Vascular Access Device into Chest Subcutaneous Tissue and Fascia, Open Approach (ICD-10-PCS; principal; 2021-06-11 13:00)
DX: I12.0 Hypertensive chronic kidney disease with stage 5 chronic kidney disease or end stage renal disease (principal); N18.6 End stage renal disease; E87.2 Acidosis; J90 Pleural effusion, not elsewhere classified; N25.81 Secondary hyperparathyroidism of renal origin; N17.9 Acute kidney failure, unspecified; J20.9 Acute bronchitis, unspecified; R63.4 Abnormal weight loss; E21.2 Other hyperparathyroidism; E11.9 Type 2 diabetes mellitus without complications; D63.1 Anemia in chronic kidney disease; Z87.891 Personal history of nicotine dependence; Z79.899 Other long term (current) drug therapy; Z88.0 Allergy status to penicillin; R31.9 Hematuria, unspecified

== ENCOUNTER → 2022-03-03 | Outpatient (CLI) | payer MEDICARE, BC ==
[~2022-03-03] MED LIST changes: +ACET1TAB55 PO; +AMLO1TAB24 PO; +COLA100C5 PO; -LISI20TA20 PO; +LISI20TA37 PO; +MED REC COMMENT
== END ==
LOC: M CLY 11:19
PROVIDERS: ATTEND Nurse Practitioner Family
DX: I51.7 Cardiomegaly (principal); R05.9 Cough, unspecified

== ENCOUNTER 2023-12-01 03:51 | Observation (INO) | payer MEDICARE, OTHER ==
[~2023-12-01] VITALS: Ht 172.7 cm; Wt 88.0 kg
[~2023-12-01 03:51] MED LIST changes: +CLOP75TA99 PO; -PLAV1TAB2 PO
[2023-12-01 04:48] LABS: BASO % 0.4 % (0.0-1.0); EOS # 0.2 10^3/uL (0.0-0.5); EOS % 2.7 % (0.0-3.0); HEMATOCRIT 30.5 % (42.0-52.0); LYMPH # 0.7 10^3/uL (1.5-5.0); LYMPH % 8.4 % (24.0-44.0); MEAN CORPUSCULAR HEMOGLOBIN 33.2 pg (27.0-33.0); MEAN CORPUSCULAR HGB CONC 32.8 g/dl (32.0-36.5); MEAN CORPUSCULAR VOLUME 101.3 fl (80.0-96.0); MONO # 0.7 10^3/uL (0.0-0.8); MONO % 8.9 % (2.0-8.0); NEUTROPHILS # 6.3 10^3/uL (1.5-8.5); NEUTROPHILS % 78.4 % (36.0-66.0); PLATELET COUNT, AUTOMATED 158 10^3/uL (150-450); RED BLOOD COUNT 3.01 10^6/uL (4.30-6.10); WHITE BLOOD COUNT 8.1 10^3/uL (4.0-10.0)
[2023-12-01 05:12] LABS: LIPASE 35 U/L (12-53)
[2023-12-01 05:13] LABS: CPK CREATINE PHOSPHOKINASE 240 U/L (46-171)
[2023-12-01 05:36] LABS: ALBUMIN 3.6 G/DL (3.2-5.2); ALKALINE PHOSPHATASE 48 U/L (46-116); ALT/SGPT < 9 U/L (7.0-40); AST/SGOT 10 U/L (<34); BILIRUBIN,DIRECT < 0.1 MG/DL (<0.4); BILIRUBIN,TOTAL 0.2 MG/DL (0.3-1.2); BLOOD UREA NITROGEN 85 MG/DL (9-23); CALCIUM LEVEL 8.9 MG/DL (8.3-10.6); CARBON DIOXIDE LEVEL 22 MMOL/L (20-31); CHLORIDE LEVEL 104 MMOL/L (98-107); CREATININE FOR GFR 9.52 MG/DL (0.70-1.30); GLOMERULAR FILTRATION RATE 5.7 (>42); GLUCOSE, FASTING 114 MG/DL (74-106); MB/CK RELATIVE INDEX 0.41 (< OR =4); POTASSIUM SERUM 4.7 MMOL/L (3.5-5.1); SODIUM LEVEL 138 MMOL/L (136-145); TOTAL PROTEIN 7.1 G/DL (5.7-8.2)
[2023-12-01 06:15] LABS: CK-MB VALUE MASS 1.1 NG/ML (<3.6)
[2023-12-01 06:16] LABS: MB/CK RELATIVE INDEX 0.5 (< OR =4)
[2023-12-01] MEDS ORDERED: SENOKOT S TAB PO PRN (07:20)
[2023-12-01] MEDS ORDERED: DEXTROSE 50% 50ML SYRINGE IV PRN (07:20)
[2023-12-01] MEDS ORDERED: GLUCOSE 4GM CHEW TABLET PO PRN (07:20)
[2023-12-01] MEDS ORDERED: GLUCAGON INJ 1MG VIAL SC PRN (07:20)
[2023-12-01] MEDS ORDERED: HEPARIN 1,000UNITS/ML 10ML VIAL (FOR RADIOLOGY & DIALYSIS ONLY) IV PRN (07:35)
[2023-12-01] MEDS ORDERED: HEPARIN 1,000UNITS/ML 10ML VIAL (FOR RADIOLOGY & DIALYSIS ONLY) XX SCH (07:35)
[2023-12-01] MEDS ORDERED: SODIUM CHLORIDE 0.9% 1000ML IV PRN (07:35)
[2023-12-01] MEDS: INSULIN LISPRO (NovoLOG) PER UNIT SC SCH ×2 (08:35→20:26)
[2023-12-01 13:42] VITALS: BP 138/80
[2023-12-01 14:00] VITALS: BP 165/139; TEMP 97.9; O2SAT 98
[2023-12-01 14:12] VITALS: BP 138/80
[2023-12-01] MEDS ORDERED: LOSA50TA28 PO (14:14)
[2023-12-01] MEDS ORDERED: CALC1CAP PO (14:14)
[2023-12-01] MEDS ORDERED: HOME MED LIST COMPLETE! XX SCH (14:15)
[2023-12-01] MEDS: CALCIUM ACETATE 667MG GELCAP PO SCH (18:47)
[2023-12-01 19:49] VITALS: BP 132/61; TEMP 97.9; O2SAT 96
[2023-12-01] MEDS: amLODIPine 5 MG TAB PO SCH (20:36)
[2023-12-01] MEDS: HEPARIN SOD (PORCINE) 5000UNITS/ML 1ML VIAL/SYRINGE SC SCH (20:37)
[2023-12-02 06:23] LABS: BASO % 0.3 % (0.0-1.0); EOS # 0.3 10^3/uL (0.0-0.5); HEMATOCRIT 29.2 % (42.0-52.0); HEMOGLOBIN 9.7 g/dl (13.5-17.5); LYMPH % 14.9 % (24.0-44.0); MEAN CORPUSCULAR HEMOGLOBIN 33.3 pg (27.0-33.0); MEAN CORPUSCULAR HGB CONC 33.2 g/dl (32.0-36.5); MEAN CORPUSCULAR VOLUME 100.3 fl (80.0-96.0); MONO # 0.9 10^3/uL (0.0-0.8); MONO % 13.9 % (2.0-8.0); NEUTROPHILS # 4.3 10^3/uL (1.5-8.5); NEUTROPHILS % 66.1 % (36.0-66.0); PLATELET COUNT, AUTOMATED 145 10^3/uL (150-450); RED BLOOD COUNT 2.91 10^6/uL (4.30-6.10); WHITE BLOOD COUNT 6.5 10^3/uL (4.0-10.0)
[2023-12-02 06:33] VITALS: BP 119/55; TEMP 97.5; O2SAT 95
[2023-12-02 06:48] LABS: CALCIUM LEVEL 8.4 MG/DL (8.3-10.6); CREATININE FOR GFR 7.28 MG/DL (0.70-1.30); GLOMERULAR FILTRATION RATE 7.8 (>42); MAGNESIUM LEVEL 2.1 MG/DL (1.8-2.4); POTASSIUM SERUM 4.4 MMOL/L (3.5-5.1)
[2023-12-02] MEDS: BENZONATATE 100MG CAPSULE PO SCH (09:34)
[2023-12-02] MEDS: LOSARTAN 50MG TABLET PO SCH (09:34)
[2023-12-02] MEDS: CLOPIDOGREL 75 MG TAB PO SCH (09:35)
[2023-12-02] MEDS: ANALGESIC BALM CRM 3OZ TOP PRN (09:37)
[2023-12-02 14:00] VITALS: BP_SYST 159; BP_SYST 160; BP_DIAS 50; BP_DIAS 63; TEMP 96.8; TEMP 97.4; O2SAT 99
[2023-12-02 20:12] VITALS: BP 124/54; TEMP 97.9; O2SAT 95
[2023-12-03] MEDS ORDERED: SODIUM CHLORIDE 0.9% 1000ML IV PRN (06:00)
[2023-12-03] MEDS ORDERED: HEPARIN 1,000UNITS/ML 10ML VIAL (FOR RADIOLOGY & DIALYSIS ONLY) IV PRN (06:00)
[2023-12-03] MEDS ORDERED: HEPARIN 1,000UNITS/ML 10ML VIAL (FOR RADIOLOGY & DIALYSIS ONLY) XX SCH (06:00)
[2023-12-03 06:23] VITALS: BP 123/59; TEMP 97.7; O2SAT 96
[2023-12-03 07:36] LABS: BASO % 0.3 % (0.0-1.0); EOS # 0.3 10^3/uL (0.0-0.5); EOS % 4.3 % (0.0-3.0); HEMATOCRIT 28.7 % (42.0-52.0); HEMOGLOBIN 9.5 g/dl (13.5-17.5); LYMPH % 15.5 % (24.0-44.0); MEAN CORPUSCULAR HEMOGLOBIN 33.1 pg (27.0-33.0); MEAN CORPUSCULAR HGB CONC 33.1 g/dl (32.0-36.5); MONO # 0.6 10^3/uL (0.0-0.8); MONO % 10.1 % (2.0-8.0); NEUTROPHILS # 4.3 10^3/uL (1.5-8.5); PLATELET COUNT, AUTOMATED 139 10^3/uL (150-450); RED BLOOD COUNT 2.87 10^6/uL (4.30-6.10); WHITE BLOOD COUNT 6.2 10^3/uL (4.0-10.0)
[2023-12-03 08:12] LABS: CALCIUM LEVEL 8.9 MG/DL (8.3-10.6); CREATININE FOR GFR 8.99 MG/DL (0.70-1.30); GLOMERULAR FILTRATION RATE 6.1 (>42); MAGNESIUM LEVEL 2.4 MG/DL (1.8-2.4); POTASSIUM SERUM 4.5 MMOL/L (3.5-5.1)
[2023-12-03 13:41] VITALS: BP 111/56; TEMP 98.2; O2SAT 100
[2023-12-03 19:48] VITALS: BP 120/57; TEMP 97.9; O2SAT 100
[2023-12-04 06:29] VITALS: BP 116/46; TEMP 98.1; O2SAT 97
[2023-12-04 07:18] LABS: BASO % 0.3 % (0.0-1.0); EOS # 0.3 10^3/uL (0.0-0.5); EOS % 4.3 % (0.0-3.0); HEMATOCRIT 29.2 % (42.0-52.0); HEMOGLOBIN 9.7 g/dl (13.5-17.5); LYMPH # 1.1 10^3/uL (1.5-5.0); LYMPH % 15.8 % (24.0-44.0); MEAN CORPUSCULAR HEMOGLOBIN 33.1 pg (27.0-33.0); MEAN CORPUSCULAR HGB CONC 33.2 g/dl (32.0-36.5); MEAN CORPUSCULAR VOLUME 99.7 fl (80.0-96.0); MONO # 0.8 10^3/uL (0.0-0.8); NEUTROPHILS # 4.6 10^3/uL (1.5-8.5); NEUTROPHILS % 67.7 % (36.0-66.0); PLATELET COUNT, AUTOMATED 139 10^3/uL (150-450); RED BLOOD COUNT 2.93 10^6/uL (4.30-6.10); WHITE BLOOD COUNT 6.8 10^3/uL (4.0-10.0)
[2023-12-04 07:42] LABS: CALCIUM LEVEL 9.4 MG/DL (8.3-10.6); CREATININE FOR GFR 6.72 MG/DL (0.70-1.30); GLOMERULAR FILTRATION RATE 8.5 (>42); MAGNESIUM LEVEL 2.1 MG/DL (1.8-2.4); POTASSIUM SERUM 3.9 MMOL/L (3.5-5.1)
[2023-12-04 14:36] VITALS: BP 130/58; TEMP 97.5; O2SAT 96
[2023-12-04 20:12] VITALS: BP 131/56; TEMP 97.9; O2SAT 97
[2023-12-05 06:26] LABS: BASO % 0.4 % (0.0-1.0); EOS # 0.3 10^3/uL (0.0-0.5); EOS % 4.6 % (0.0-3.0); HEMATOCRIT 27.9 % (42.0-52.0); HEMOGLOBIN 9.2 g/dl (13.5-17.5); LYMPH # 1.2 10^3/uL (1.5-5.0); MONO # 0.6 10^3/uL (0.0-0.8); MONO % 8.3 % (2.0-8.0); NEUTROPHILS # 5.2 10^3/uL (1.5-8.5); NEUTROPHILS % 69.8 % (36.0-66.0); PLATELET COUNT, AUTOMATED 138 10^3/uL (150-450); RED BLOOD COUNT 2.79 10^6/uL (4.30-6.10); WHITE BLOOD COUNT 7.5 10^3/uL (4.0-10.0)
[2023-12-05 06:49] LABS: CREATININE FOR GFR 8.51 MG/DL (0.70-1.30); GLOMERULAR FILTRATION RATE 6.5 (>42); MAGNESIUM LEVEL 2.1 MG/DL (1.8-2.4); POTASSIUM SERUM 4.4 MMOL/L (3.5-5.1)
[2023-12-05 06:52] VITALS: BP 137/53; TEMP 97.7; O2SAT 96
[2023-12-05 14:20] VITALS: BP 131/57; TEMP 97.5; O2SAT 95
[2023-12-05 21:24] VITALS: BP 157/66; TEMP 98.1; O2SAT 96
[2023-12-06 06:00] VITALS: BP 143/60; TEMP 97.9; O2SAT 96
[2023-12-06] MEDS ORDERED: SODIUM CHLORIDE 0.9% 1000ML IV PRN (06:00)
[2023-12-06] MEDS ORDERED: HEPARIN 1,000UNITS/ML 10ML VIAL (FOR RADIOLOGY & DIALYSIS ONLY) XX SCH (06:00)
[2023-12-06] MEDS ORDERED: HEPARIN 1,000UNITS/ML 10ML VIAL (FOR RADIOLOGY & DIALYSIS ONLY) IV PRN (06:00)
[2023-12-06 06:29] VITALS: BP 143/60
[2023-12-06 06:34] LABS: BASO % 0.3 % (0.0-1.0); EOS # 0.3 10^3/uL (0.0-0.5); EOS % 4.8 % (0.0-3.0); HEMATOCRIT 27.6 % (42.0-52.0); HEMOGLOBIN 9.1 g/dl (13.5-17.5); LYMPH # 1.1 10^3/uL (1.5-5.0); LYMPH % 15.6 % (24.0-44.0); MEAN CORPUSCULAR HEMOGLOBIN 33.2 pg (27.0-33.0); MEAN CORPUSCULAR VOLUME 100.7 fl (80.0-96.0); MONO # 0.5 10^3/uL (0.0-0.8); MONO % 6.8 % (2.0-8.0); NEUTROPHILS % 71.8 % (36.0-66.0); PLATELET COUNT, AUTOMATED 140 10^3/uL (150-450); RED BLOOD COUNT 2.74 10^6/uL (4.30-6.10)
[2023-12-06 07:06] LABS: CALCIUM LEVEL 8.6 MG/DL (8.3-10.6); CREATININE FOR GFR 9.45 MG/DL (0.70-1.30); GLOMERULAR FILTRATION RATE 5.7 (>42); MAGNESIUM LEVEL 2.1 MG/DL (1.8-2.4); POTASSIUM SERUM 4.6 MMOL/L (3.5-5.1)
== END 2023-12-06 14:55 | disposition home or self-care (01) ==
LOC: M ED 04:06 → M ED INP 07:09 → EEVIPCON 07:09 → M MS5PR 13:05
PROVIDERS: ADMIT Student in an Organized Health Care Education/Training Program; ATTEND Student in an Organized Health Care Education/Training Program
DX: N18.4 Chronic kidney disease, stage 4 (severe) (principal); Z99.2 Dependence on renal dialysis; Z91.158 Patient's noncompliance with renal dialysis for other reason; R53.1 Weakness; R05.9 Cough, unspecified; B97.89 Other viral agents as the cause of diseases classified elsewhere; R26.2 Difficulty in walking, not elsewhere classified; I12.9 Hypertensive chronic kidney disease with stage 1 through stage 4 chronic kidney disease, or unspecified chronic kidney disease; D63.8 Anemia in other chronic diseases classified elsewhere; E11.22 Type 2 diabetes mellitus with diabetic chronic kidney disease; N25.81 Secondary hyperparathyroidism of renal origin; Z86.16 Personal history of COVID-19; Z88.0 Allergy status to penicillin; Z79.899 Other long term (current) drug therapy; Z79.02 Long term (current) use of antithrombotics/antiplatelets
CPT/HCPCS: 36415; 71045; 80048; 80076; 81001; 82550; 82553; 83605; 83690; 83735; 84484; 85025; 87040; 87486; 87581; 87633; 87798; 90935; 93005; 93041; 96372; 97116; 97161; 97165; 97530; 99285; G0378

== ENCOUNTER → 2024-04-09 | Outpatient (CLI) | payer OTHER ==
[~2024-04-09] MED LIST changes: +CALC1CAP PO; +LOSA50TA28 PO
== END ==
LOC: M WUC 11:38
PROVIDERS: ATTEND Nurse Practitioner Adult Health
DX: J20.9 Acute bronchitis, unspecified (principal); R05.1 Acute cough; J84.89 Other specified interstitial pulmonary diseases

== ENCOUNTER 2024-09-15 18:54 | Observation (INO) | payer OTHER ==
[~2024-09-15] VITALS: Ht 172.7 cm; Wt 79.5 kg
[2024-09-15 19:36] LABS: BASO % 0.4 % (0.0-1.0); EOS # 0.1 10^3/uL (0.0-0.5); EOS % 2.4 % (0.0-3.0); HEMATOCRIT 32.9 % (42.0-52.0); HEMOGLOBIN 11.2 g/dl (13.5-17.5); LYMPH # 0.7 10^3/uL (1.5-5.0); LYMPH % 12.4 % (24.0-44.0); MEAN CORPUSCULAR HEMOGLOBIN 33.3 pg (27.0-33.0); MEAN CORPUSCULAR VOLUME 97.9 fl (80.0-96.0); MONO # 0.5 10^3/uL (0.0-0.8); MONO % 9.2 % (2.0-8.0); NEUTROPHILS % 75.2 % (36.0-66.0); PLATELET COUNT, AUTOMATED 198 10^3/uL (150-450); RED BLOOD COUNT 3.36 10^6/uL (4.30-6.10); WHITE BLOOD COUNT 5.3 10^3/uL (4.0-10.0)
[2024-09-15 20:02] LABS: CK-MB VALUE MASS 1.1 NG/ML (<3.6)
[2024-09-15 20:03] LABS: CPK CREATINE PHOSPHOKINASE 115 U/L (46-171); MB/CK RELATIVE INDEX 0.95 (< OR =4)
[2024-09-15 20:04] LABS: ALBUMIN 3.5 G/DL (3.2-5.2); ALKALINE PHOSPHATASE 42 U/L (40-129); ALT/SGPT 11 U/L (7.0-40); AST/SGOT 12 U/L (<34); BILIRUBIN,DIRECT < 0.1 MG/DL (<0.4); BILIRUBIN,TOTAL 0.2 MG/DL (0.3-1.2); BLOOD UREA NITROGEN 41 MG/DL (9-23); CALCIUM LEVEL 9.1 MG/DL (8.3-10.6); CARBON DIOXIDE LEVEL 30 MMOL/L (20-31); CHLORIDE LEVEL 102 MMOL/L (98-107); CREATININE FOR GFR 5.41 MG/DL (0.70-1.30); GLOMERULAR FILTRATION RATE 10.9 (>42); GLUCOSE, FASTING 135 MG/DL (74-106); POTASSIUM SERUM 4.6 MMOL/L (3.5-5.1); SODIUM LEVEL 139 MMOL/L (136-145)
[2024-09-15 20:06] LABS: THYROID STIMULATING HORMONE 1.522 uIU/ML (0.55-4.78)
[2024-09-15 20:27] LABS: INR 0.98; PARTIAL THROMBOPLASTIN TIME 31.4 SECONDS (24.8-34.2); PROTHROMBIN TIME 13.3 SECONDS (12.5-14.5)
[2024-09-15 21:43] LABS: MB/CK RELATIVE INDEX 0.97 (< OR =4)
[2024-09-15 21:55] LABS: PROCALCITONIN 0.23 ng/ml
[2024-09-16] MEDS ORDERED: HOME MED LIST COMPLETE! XX SCH (02:05)
[2024-09-16] MEDS: CALCIUM ACETATE 667MG GELCAP PO SCH (08:21)
[2024-09-16] MEDS: LOSARTAN 50MG TABLET PO SCH (08:21)
[2024-09-16] MEDS: CLOPIDOGREL 75 MG TAB PO SCH (08:21)
[2024-09-16] MEDS: amLODIPine 5 MG TAB PO SCH (08:21)
[2024-09-17 13:45] VITALS: BP 173/83; TEMP 97.5; O2SAT 97
[2024-09-17 15:45] VITALS: BP 173/83; TEMP 97.5; O2SAT 97
[2024-09-17 20:04] VITALS: BP 176/87; TEMP 97.9; O2SAT 98
[2024-09-18 04:00] VITALS: BP 158/75; TEMP 97.9; O2SAT 96
[2024-09-18] MEDS ORDERED: HEPARIN 1,000UNITS/ML 10ML VIAL (FOR RADIOLOGY & DIALYSIS ONLY) IV PRN (06:00)
[2024-09-18] MEDS ORDERED: SODIUM CHLORIDE 0.9% 1000 ML IV PRN (06:00)
[2024-09-18 08:06] LABS: HEMATOCRIT 30.9 % (42.0-52.0); HEMOGLOBIN 10.2 g/dl (13.5-17.5); MEAN CORPUSCULAR HEMOGLOBIN 32.7 pg (27.0-33.0); PLATELET COUNT, AUTOMATED 178 10^3/uL (150-450); RED BLOOD COUNT 3.12 10^6/uL (4.30-6.10); WHITE BLOOD COUNT 5.9 10^3/uL (4.0-10.0)
[2024-09-18 08:37] LABS: ALBUMIN 3.2 G/DL (3.2-5.2); CALCIUM LEVEL 8.8 MG/DL (8.3-10.6); CREATININE FOR GFR 9.67 MG/DL (0.70-1.30); GLOMERULAR FILTRATION RATE 5.6 (>42); PHOSPHORUS LEVEL 8.7 MG/DL (2.4-5.1); POTASSIUM SERUM 5.2 MMOL/L (3.5-5.1)
[2024-09-18] MEDS: HEPARIN 1,000UNITS/ML 10ML VIAL (FOR RADIOLOGY & DIALYSIS ONLY) XX SCH (11:00)
[2024-09-18] MEDS: (RENVELA) SEVELAMER **CARBONate** 800 MG TAB PO SCH (13:14)
[2024-09-18 19:36] VITALS: BP 143/77; TEMP 98.1; O2SAT 100
[2024-09-19] MEDS: CALCIUM CARBONATE 500 MG CHEW U/D PO PRN (02:32)
[2024-09-19 04:02] VITALS: BP 121/54; TEMP 97.7; O2SAT 97
[2024-09-19 12:03] VITALS: BP 128/69; TEMP 97; O2SAT 98
[2024-09-19 20:02] VITALS: BP 135/72; TEMP 97.9; O2SAT 98
[2024-09-19] MEDS: LOSARTAN 25 MG TAB PO SCH (21:22)
[2024-09-20 03:27] VITALS: BP 142/71; TEMP 97.7; O2SAT 98
[2024-09-20] MEDS ORDERED: HEPARIN 1,000UNITS/ML 10ML VIAL (FOR RADIOLOGY & DIALYSIS ONLY) IV PRN (06:00)
[2024-09-20] MEDS ORDERED: SODIUM CHLORIDE 0.9% 1000 ML IV PRN (06:00)
[2024-09-20 06:56] LABS: CALCIUM LEVEL 9.4 MG/DL (8.3-10.6); CREATININE FOR GFR 8.98 MG/DL (0.70-1.30); GLOMERULAR FILTRATION RATE 6.1 (>42); POTASSIUM SERUM 5.1 MMOL/L (3.5-5.1)
[2024-09-20] MEDS: HEPARIN 1,000UNITS/ML 10ML VIAL (FOR RADIOLOGY & DIALYSIS ONLY) XX SCH (09:48)
[2024-09-20 12:00] VITALS: BP 157/81; TEMP 97.3; O2SAT 98
[2024-09-20 19:47] VITALS: BP 139/66; TEMP 97.5; O2SAT 98
[2024-09-20 20:58] VITALS: BP 128/56
[2024-09-21 04:00] VITALS: BP 122/58; TEMP 97.9; O2SAT 98
[2024-09-21 08:31] VITALS: BP 120/58
[2024-09-21] MEDS: TAMSULOSIN 0.4 MG CAP PO SCH (11:27)
[2024-09-21] MEDS: SENOKOT S TAB PO SCH (11:27)
[2024-09-21 12:00] VITALS: BP 152/74; TEMP 98.4; O2SAT 97
[2024-09-21 20:03] VITALS: BP 153/77; TEMP 97.7; O2SAT 99
[2024-09-22 03:28] VITALS: BP 148/75; TEMP 99; O2SAT 98
[2024-09-22] MEDS ORDERED: LIDOCAINE 1% SDV 5ML VIAL SC PRN (06:00)
[2024-09-22] MEDS ORDERED: HEPARIN 1,000UNITS/ML 10ML VIAL (FOR RADIOLOGY & DIALYSIS ONLY) XX SCH (06:00)
[2024-09-22] MEDS ORDERED: SODIUM CHLORIDE 0.9% 1000 ML IV PRN (06:00)
[2024-09-22 08:37] LABS: BASO % 0.6 % (0.0-1.0); EOS # 0.2 10^3/uL (0.0-0.5); EOS % 3.8 % (0.0-3.0); HEMATOCRIT 29.2 % (42.0-52.0); HEMOGLOBIN 9.9 g/dl (13.5-17.5); LYMPH # 0.8 10^3/uL (1.5-5.0); LYMPH % 13.3 % (24.0-44.0); MEAN CORPUSCULAR HEMOGLOBIN 33.2 pg (27.0-33.0); MEAN CORPUSCULAR HGB CONC 33.9 g/dl (32.0-36.5); MONO # 0.6 10^3/uL (0.0-0.8); MONO % 8.7 % (2.0-8.0); NEUTROPHILS # 4.7 10^3/uL (1.5-8.5); NEUTROPHILS % 73.4 % (36.0-66.0); PLATELET COUNT, AUTOMATED 175 10^3/uL (150-450); RED BLOOD COUNT 2.98 10^6/uL (4.30-6.10); WHITE BLOOD COUNT 6.3 10^3/uL (4.0-10.0)
[2024-09-22 09:12] LABS: CALCIUM LEVEL 8.9 MG/DL (8.3-10.6); CREATININE FOR GFR 8.64 MG/DL (0.70-1.30); GLOMERULAR FILTRATION RATE 6.4 (>42); POTASSIUM SERUM 4.9 MMOL/L (3.5-5.1)
[2024-09-22] MEDS: HEPARIN 1,000UNITS/ML 10ML VIAL (FOR RADIOLOGY & DIALYSIS ONLY) IV PRN (10:33)
[2024-09-22 13:01] VITALS: BP 135/71; TEMP 97.9; O2SAT 98
[2024-09-22] MEDS: (RENVELA) SEVELAMER **CARBONate** 800 MG TAB PO SCH (13:01)
[2024-09-23 04:00] VITALS: BP_SYST 135; BP_SYST 136; BP_DIAS 56; BP_DIAS 58; TEMP 98.4; TEMP 99.1; O2SAT 97
[2024-09-24 04:28] VITALS: BP 159/79; TEMP 98.4; O2SAT 98
[2024-09-24] MEDS ORDERED: LIDOCAINE 1% SDV 5ML VIAL SC PRN (06:00)
[2024-09-24] MEDS ORDERED: SODIUM CHLORIDE 0.9% 1000 ML IV PRN (06:00)
[2024-09-24] MEDS ORDERED: HEPARIN 1,000UNITS/ML 10ML VIAL (FOR RADIOLOGY & DIALYSIS ONLY) IV PRN (06:00)
[2024-09-24] MEDS: DARBEPOETIN 100MCG/0.5ML *DIALYSIS* SYRINGE IV SCH (08:59)
[2024-09-24] MEDS: HEPARIN 1,000UNITS/ML 10ML VIAL (FOR RADIOLOGY & DIALYSIS ONLY) XX SCH (11:27)
[2024-09-24 12:54] VITALS: BP 151/74; TEMP 97.9; O2SAT 98
[2024-09-24] MEDS: LIDOCAINE 5% (LIDODERM) PATCH TD SCH (23:57)
[2024-09-25] MEDS: CALCIUM CARBONATE 500 MG CHEW U/D PO ONE (03:51)
[2024-09-25] MEDS: PANTOPRAZOLE 40MG TAB (PROTONIX) PO SCH (03:51)
[2024-09-25 04:00] VITALS: BP 112/50; TEMP 97.5; O2SAT 96
[2024-09-25] MEDS: MIRALAX *UNIT DOSE* 17GM PACKET PO PRN (08:41)
[2024-09-25] MEDS: traMADol 50 MG TAB PO ONE (23:57)
[2024-09-26] MEDS ORDERED: HEPARIN 1,000UNITS/ML 10ML VIAL (FOR RADIOLOGY & DIALYSIS ONLY) IV PRN (06:00)
[2024-09-26] MEDS ORDERED: LIDOCAINE 1% SDV 5ML VIAL SC PRN (06:00)
[2024-09-26] MEDS ORDERED: SODIUM CHLORIDE 0.9% 1000 ML IV PRN (06:00)
[2024-09-26 06:08] VITALS: BP 135/65; TEMP 97.9; O2SAT 95
[2024-09-26] MEDS: HEPARIN 1,000UNITS/ML 10ML VIAL (FOR RADIOLOGY & DIALYSIS ONLY) XX SCH (11:10)
[2024-09-26 20:20] VITALS: BP 127/67; TEMP 98.6; O2SAT 98
[2024-09-27 04:00] VITALS: BP 126/66; TEMP 97.7; O2SAT 98
[2024-09-27 21:05] VITALS: BP 128/64; TEMP 98.8; O2SAT 97
[2024-09-28 03:41] VITALS: BP 155/73; TEMP 97.7; O2SAT 96
[2024-09-29 04:00] VITALS: BP 150/47; TEMP 97.9; O2SAT 96
[2024-09-29] MEDS ORDERED: SODIUM CHLORIDE 0.9% 1000 ML IV PRN (06:00)
[2024-09-29] MEDS ORDERED: HEPARIN 1,000UNITS/ML 10ML VIAL (FOR RADIOLOGY & DIALYSIS ONLY) IV PRN (06:00)
[2024-09-29 11:17] LABS: HEMATOCRIT 31.8 % (42.0-52.0); HEMOGLOBIN 10.7 g/dl (13.5-17.5); MEAN CORPUSCULAR HEMOGLOBIN 33.2 pg (27.0-33.0); MEAN CORPUSCULAR HGB CONC 33.6 g/dl (32.0-36.5); MEAN CORPUSCULAR VOLUME 98.8 fl (80.0-96.0); PLATELET COUNT, AUTOMATED 213 10^3/uL (150-450); RED BLOOD COUNT 3.22 10^6/uL (4.30-6.10)
[2024-09-29 11:49] LABS: ALBUMIN 3.5 G/DL (3.2-5.2); CALCIUM LEVEL 8.6 MG/DL (8.3-10.6); CREATININE FOR GFR 10.82 MG/DL (0.70-1.30); GLOMERULAR FILTRATION RATE 4.9 (>42); PHOSPHORUS LEVEL 4.7 MG/DL (2.4-5.1); POTASSIUM SERUM 4.5 MMOL/L (3.5-5.1)
[2024-09-29] MEDS: HEPARIN 1,000UNITS/ML 10ML VIAL (FOR RADIOLOGY & DIALYSIS ONLY) XX SCH (14:18)
[2024-09-30 04:20] VITALS: BP 100/73; TEMP 97.9; O2SAT 99
[2024-09-30 05:25] VITALS: BP 123/55
[2024-09-30] MEDS: HEPARIN SOD (PORCINE) 5000UNITS/ML 1ML VIAL/SYRINGE SQ SCH (21:30)
[2024-10-01 05:40] VITALS: BP 145/72; TEMP 97.3; O2SAT 97
[2024-10-02 03:32] VITALS: BP 141/70; TEMP 97.9; O2SAT 96
[2024-10-02] MEDS ORDERED: SODIUM CHLORIDE 0.9% 1000 ML IV PRN (06:00)
[2024-10-02] MEDS ORDERED: HEPARIN 1,000UNITS/ML 10ML VIAL (FOR RADIOLOGY & DIALYSIS ONLY) IV PRN (06:00)
[2024-10-02] MEDS: HEPARIN 1,000UNITS/ML 10ML VIAL (FOR RADIOLOGY & DIALYSIS ONLY) XX SCH (09:57)
[2024-10-03 04:00] VITALS: BP 109/54; TEMP 98.4; O2SAT 95
[2024-10-04 04:00] VITALS: BP 153/73; TEMP 97.7; O2SAT 95
[2024-10-04] MEDS ORDERED: HEPARIN 1,000UNITS/ML 10ML VIAL (FOR RADIOLOGY & DIALYSIS ONLY) IV PRN (06:00)
[2024-10-04] MEDS ORDERED: SODIUM CHLORIDE 0.9% 1000 ML IV PRN (06:00)
[2024-10-04] MEDS: HEPARIN 1,000UNITS/ML 10ML VIAL (FOR RADIOLOGY & DIALYSIS ONLY) XX SCH (10:53)
[2024-10-05 04:50] VITALS: BP 151/72; TEMP 97.9; O2SAT 97
[2024-10-06] MEDS ORDERED: SODIUM CHLORIDE 0.9% 1000 ML IV PRN (06:00)
[2024-10-06] MEDS ORDERED: HEPARIN 1,000UNITS/ML 10ML VIAL (FOR RADIOLOGY & DIALYSIS ONLY) IV PRN (06:00)
[2024-10-06] MEDS ORDERED: LIDOCAINE 1% SDV 5ML VIAL SC PRN (06:00)
[2024-10-06 06:33] VITALS: BP 150/70; TEMP 98.1; O2SAT 96
[2024-10-06] MEDS: HEPARIN 1,000UNITS/ML 10ML VIAL (FOR RADIOLOGY & DIALYSIS ONLY) XX SCH (10:52)
[2024-10-07 04:00] VITALS: BP_SYST 154; BP_SYST 159; BP_DIAS 66; BP_DIAS 79; TEMP 97.7; TEMP 98.2; O2SAT 96; O2SAT 97
[2024-10-08 04:00] VITALS: BP 143/75; TEMP 97.7; O2SAT 96
[2024-10-08] MEDS: LIDOCAINE 5% (LIDODERM) PATCH TD SCH (13:28)
[2024-10-09 04:00] VITALS: BP 157/70; TEMP 97.5; O2SAT 98
[2024-10-09] MEDS ORDERED: LIDOCAINE 1% SDV 5ML VIAL SC PRN (06:00)
[2024-10-09] MEDS ORDERED: SODIUM CHLORIDE 0.9% 1000 ML IV PRN (06:00)
[2024-10-09] MEDS ORDERED: HEPARIN 1,000UNITS/ML 10ML VIAL (FOR RADIOLOGY & DIALYSIS ONLY) IV PRN (06:00)
[2024-10-09] MEDS: HEPARIN 1,000UNITS/ML 10ML VIAL (FOR RADIOLOGY & DIALYSIS ONLY) XX SCH (09:17)
[2024-10-09 12:42] LABS: HEPATITIS B CORE ANTIBODY IGM NEGATIVE (NEGATIVE); HEPATITIS B SURFACE ANTIBODY NEGATIVE (POSITIVE); HEPATITIS B SURFACE ANTIGEN NEGATIVE (NEGATIVE); HEPATITIS C VIRUS ABY INDEX < 0.02 INDEX (<0.8)
[2024-10-10 03:45] VITALS: BP 156/68; TEMP 97.7; O2SAT 95
[2024-10-11 04:49] VITALS: BP 153/68; TEMP 98.1; O2SAT 97
[2024-10-11] MEDS ORDERED: SODIUM CHLORIDE 0.9% 1000 ML IV PRN (06:00)
[2024-10-11] MEDS ORDERED: HEPARIN 1,000UNITS/ML 10ML VIAL (FOR RADIOLOGY & DIALYSIS ONLY) IV PRN (06:00)
[2024-10-11] MEDS ORDERED: LIDOCAINE 1% SDV 5ML VIAL SC PRN (06:00)
[2024-10-11] MEDS: HEPARIN 1,000UNITS/ML 10ML VIAL (FOR RADIOLOGY & DIALYSIS ONLY) XX SCH (15:21)
[2024-10-12 05:30] VITALS: BP 157/75; TEMP 97.7; O2SAT 98
[2024-10-12] MEDS ORDERED: FLOM0.4C39 PO (11:38)
[2024-10-12] MEDS ORDERED: LIDO5TD TD (11:38)
[2024-10-12] MEDS ORDERED: PANT40TA29 PO (11:38)
[2024-10-12] MEDS ORDERED: RENV2TAB PO (11:38)
== END 2024-10-12 13:24 | disposition home health service (06) ==
LOC: EDBD 18:54 → M ED 18:54 → M ED INP 18:55 → M MSPAV 09-17 16:03
PROVIDERS: ADMIT Student in an Organized Health Care Education/Training Program; ATTEND Student in an Organized Health Care Education/Training Program
DX: N18.6 End stage renal disease (principal); Z99.2 Dependence on renal dialysis; R54 Age-related physical debility; R33.8 Other retention of urine; N40.1 Benign prostatic hyperplasia with lower urinary tract symptoms; I95.1 Orthostatic hypotension; F01.50 Vascular dementia, unspecified severity, without behavioral disturbance, psychotic disturbance, mood disturbance, and anxiety; K21.9 Gastro-esophageal reflux disease without esophagitis; R26.2 Difficulty in walking, not elsewhere classified; M62.81 Muscle weakness (generalized); I12.0 Hypertensive chronic kidney disease with stage 5 chronic kidney disease or end stage renal disease; E11.22 Type 2 diabetes mellitus with diabetic chronic kidney disease; E21.2 Other hyperparathyroidism; I67.82 Cerebral ischemia; I63.81 Other cerebral infarction due to occlusion or stenosis of small artery; D63.1 Anemia in chronic kidney disease; E87.5 Hyperkalemia; Z86.16 Personal history of COVID-19; Z98.890 Other specified postprocedural states; M48.062 Spinal stenosis, lumbar region with neurogenic claudication; Z88.0 Allergy status to penicillin; Z79.899 Other long term (current) drug therapy; Z79.02 Long term (current) use of antithrombotics/antiplatelets; Z79.82 Long term (current) use of aspirin
CPT/HCPCS: 36415; 70450; 71045; 72131; 80048; 80069; 80076; 81001; 82550; 82553; 83605; 84145; 84443; 84484; 85025; 85027; 85610; 85730; 86704; 86705; 86706; 86803; 87040; 87340; 87486; 87581; 87633; 87798; 90935; 92610; 93005; 96372; 97116; 97161; 97165; 97530; 97535; 99285; G0257; G0378; J0882

== ENCOUNTER 2024-11-06 10:10 | Inpatient (IN) | payer MEDICARE, OTHER ==
[2024-11-06] VITALS (8 sets, daily range): BP systolic 133–168; BP diastolic 67–77; TEMP 98.3–98.8; O2SAT 94–97
[~2024-11-06] VITALS: Ht 172.7 cm; Wt 86.8 kg
[~2024-11-06 10:10] MED LIST changes: +FLOM0.4C39 PO; +LIDO5TD TD; +PANT40TA29 PO; +RENV2TAB PO
[2024-11-06 10:54] LABS: BASO % 0.2 % (0.0-1.0); EOS # 0.1 10^3/uL (0.0-0.5); EOS % 1.2 % (0.0-3.0); LYMPH # 0.5 10^3/uL (1.5-5.0); LYMPH % 5.1 % (24.0-44.0); MEAN CORPUSCULAR HEMOGLOBIN 32.7 pg (27.0-33.0); MONO # 0.6 10^3/uL (0.0-0.8); MONO % 6.4 % (2.0-8.0); NEUTROPHILS # 7.7 10^3/uL (1.5-8.5); NEUTROPHILS % 86.1 % (36.0-66.0); PLATELET COUNT, AUTOMATED 230 10^3/uL (150-450); RED BLOOD COUNT 1.96 10^6/uL (4.30-6.10); WHITE BLOOD COUNT 8.9 10^3/uL (4.0-10.0)
[2024-11-06 10:58] LABS: HEMOGLOBIN 6.4 g/dl (13.5-17.5)
[2024-11-06 11:14] LABS: CK-MB VALUE MASS 1.8 NG/ML (<3.6); LIPASE 36 U/L (12-53)
[2024-11-06 11:16] LABS: CPK CREATINE PHOSPHOKINASE 97 U/L (46-171); MB/CK RELATIVE INDEX 1.85 (< OR =4)
[2024-11-06 11:17] LABS: THYROID STIMULATING HORMONE 1.219 uIU/ML (0.55-4.78)
[2024-11-06 11:19] LABS: ALBUMIN 3.4 G/DL (3.2-5.2); ALKALINE PHOSPHATASE 45 U/L (40-129); ALT/SGPT 11 U/L (7.0-40); AST/SGOT 11 U/L (<34); BILIRUBIN,DIRECT < 0.1 MG/DL (<0.4); BILIRUBIN,TOTAL 0.2 MG/DL (0.3-1.2); BLOOD UREA NITROGEN 98 MG/DL (9-23); CALCIUM LEVEL 8.8 MG/DL (8.3-10.6); CARBON DIOXIDE LEVEL 28 MMOL/L (20-31); CHLORIDE LEVEL 99 MMOL/L (98-107); GLOMERULAR FILTRATION RATE 5.9 (>35); GLUCOSE, FASTING 137 MG/DL (74-106); POTASSIUM SERUM 4.3 MMOL/L (3.5-5.1); SODIUM LEVEL 139 MMOL/L (136-145); TOTAL PROTEIN 6.1 G/DL (5.7-8.2)
[2024-11-06 12:17] LABS: CK-MB VALUE MASS 2.1 NG/ML (<3.6)
[2024-11-06 12:19] LABS: MB/CK RELATIVE INDEX 2.05 (< OR =4)
[2024-11-06] MEDS ORDERED: ISOVUE-370 76% 100ML VIAL As Ordered ONE (15:04)
[2024-11-06] MEDS ORDERED: PANT-23 PO (17:10)
[2024-11-06] MEDS ORDERED: HOME MED LIST COMPLETE! XX SCH (17:10)
[2024-11-06] MEDS ORDERED: FLOM0.4C39 PO (17:10)
[2024-11-06] MEDS ORDERED: SEVE800T3 PO (17:10)
[2024-11-06] MEDS ORDERED: MOM 30ML SUSPENSION UDC PO PRN (19:00)
[2024-11-06] MEDS: PANTOPRAZOLE 40MG VIAL IV ONE (19:38)
[2024-11-06] MEDS: SUCRALFATE 1 GM TAB PO SCH (19:38)
[2024-11-06] MEDS: ACETAMINOPHEN 325 MG TAB PO PRN (20:51)
[2024-11-06] MEDS: DOCUSATE SODIUM 100MG CAPSULE PO SCH (20:55)
[2024-11-06] MEDS: TAMSULOSIN 0.4 MG CAP PO SCH (20:55)
[2024-11-06 21:55] LABS: HEMATOCRIT 25.1 % (42.0-52.0); HEMOGLOBIN 8.3 g/dl (13.5-17.5); MEAN CORPUSCULAR HEMOGLOBIN 32.2 pg (27.0-33.0); MEAN CORPUSCULAR HGB CONC 33.1 g/dl (32.0-36.5); MEAN CORPUSCULAR VOLUME 97.3 fl (80.0-96.0); PLATELET COUNT, AUTOMATED 224 10^3/uL (150-450); RED BLOOD COUNT 2.58 10^6/uL (4.30-6.10)
[2024-11-07] VITALS (9 sets, daily range): BP systolic 134–165; BP diastolic 61–94; TEMP 97.5–99.2; O2SAT 94–96
[2024-11-07 04:45] LABS: HEMATOCRIT 23.6 % (42.0-52.0); HEMOGLOBIN 7.9 g/dl (13.5-17.5); MEAN CORPUSCULAR HEMOGLOBIN 32.4 pg (27.0-33.0); MEAN CORPUSCULAR HGB CONC 33.5 g/dl (32.0-36.5); MEAN CORPUSCULAR VOLUME 96.7 fl (80.0-96.0); PLATELET COUNT, AUTOMATED 231 10^3/uL (150-450); RED BLOOD COUNT 2.44 10^6/uL (4.30-6.10); WHITE BLOOD COUNT 8.6 10^3/uL (4.0-10.0)
[2024-11-07 05:11] LABS: CALCIUM LEVEL 8.4 MG/DL (8.3-10.6); CREATININE FOR GFR 9.99 MG/DL (0.70-1.30); GLOMERULAR FILTRATION RATE 5.4 (>35); POTASSIUM SERUM 4.5 MMOL/L (3.5-5.1)
[2024-11-07] MEDS ORDERED: SODIUM CHLORIDE 0.9% 1000 ML IV PRN (07:40)
[2024-11-07] MEDS ORDERED: HEPARIN 1,000UNITS/ML 10ML VIAL (FOR RADIOLOGY & DIALYSIS ONLY) IV PRN (07:40)
[2024-11-07] MEDS ORDERED: LIDOCAINE 1% SDV 5ML VIAL SC PRN (07:40)
[2024-11-07] MEDS: (RENVELA) SEVELAMER **CARBONate** 800 MG TAB PO SCH (07:57)
[2024-11-07] MEDS: PANTOPRAZOLE 40MG VIAL IV SCH (08:18)
[2024-11-07] MEDS: HEPARIN 1,000UNITS/ML 10ML VIAL (FOR RADIOLOGY & DIALYSIS ONLY) XX SCH (12:39)
[2024-11-07 14:16] LABS: HEMATOCRIT 27.7 % (42.0-52.0); HEMOGLOBIN 9.4 g/dl (13.5-17.5); MEAN CORPUSCULAR HEMOGLOBIN 31.2 pg (27.0-33.0); MEAN CORPUSCULAR HGB CONC 33.9 g/dl (32.0-36.5); PLATELET COUNT, AUTOMATED 206 10^3/uL (150-450); RED BLOOD COUNT 3.01 10^6/uL (4.30-6.10)
[2024-11-07] MEDS: CEPACOL LOZENGE PO PRN (20:11)
[2024-11-07 20:44] LABS: HEMOGLOBIN 9.2 g/dl (13.5-17.5); MEAN CORPUSCULAR HEMOGLOBIN 31.7 pg (27.0-33.0); MEAN CORPUSCULAR HGB CONC 34.1 g/dl (32.0-36.5); MEAN CORPUSCULAR VOLUME 93.1 fl (80.0-96.0); PLATELET COUNT, AUTOMATED 211 10^3/uL (150-450); WHITE BLOOD COUNT 8.4 10^3/uL (4.0-10.0)
[2024-11-08 04:06] VITALS: BP 129/67; TEMP 97.7; O2SAT 96
[2024-11-08 04:52] LABS: HEMATOCRIT 26.9 % (42.0-52.0); HEMOGLOBIN 9.1 g/dl (13.5-17.5); MEAN CORPUSCULAR HEMOGLOBIN 31.7 pg (27.0-33.0); MEAN CORPUSCULAR HGB CONC 33.8 g/dl (32.0-36.5); MEAN CORPUSCULAR VOLUME 93.7 fl (80.0-96.0); PLATELET COUNT, AUTOMATED 215 10^3/uL (150-450); RED BLOOD COUNT 2.87 10^6/uL (4.30-6.10); WHITE BLOOD COUNT 7.4 10^3/uL (4.0-10.0)
[2024-11-08 05:21] LABS: ALBUMIN 3.3 G/DL (3.2-5.2); CALCIUM LEVEL 8.5 MG/DL (8.3-10.6); CREATININE FOR GFR 6.24 MG/DL (0.70-1.30); GLOMERULAR FILTRATION RATE 9.3 (>35); PHOSPHORUS LEVEL 5.2 MG/DL (2.4-5.1); POTASSIUM SERUM 3.9 MMOL/L (3.5-5.1)
[2024-11-08] MEDS ORDERED: LIDOCAINE 1% SDV 5ML VIAL SC PRN (06:00)
[2024-11-08] MEDS ORDERED: HEPARIN 1,000UNITS/ML 10ML VIAL (FOR RADIOLOGY & DIALYSIS ONLY) IV PRN (06:00)
[2024-11-08] MEDS ORDERED: SODIUM CHLORIDE 0.9% 1000 ML IV PRN (06:00)
[2024-11-08 08:00] VITALS: BP 132/68; TEMP 97.3; O2SAT 95
[2024-11-08 12:02] LABS: HEMATOCRIT 25.4 % (42.0-52.0); HEMOGLOBIN 8.7 g/dl (13.5-17.5); MEAN CORPUSCULAR HEMOGLOBIN 31.9 pg (27.0-33.0); MEAN CORPUSCULAR HGB CONC 34.3 g/dl (32.0-36.5); PLATELET COUNT, AUTOMATED 202 10^3/uL (150-450); RED BLOOD COUNT 2.73 10^6/uL (4.30-6.10); WHITE BLOOD COUNT 6.2 10^3/uL (4.0-10.0)
[2024-11-08] MEDS ORDERED: E-Z-PAQUE 96% w/w SUSP 176GM BTL As Ordered ONE (12:28)
[2024-11-08] MEDS ORDERED: E-Z-GAS II EFFERVESCENT PACKET (SODIUM BICARB./CITRIC ACID/SIMETHICONE) As Ordered ONE (12:28)
[2024-11-08] MEDS ORDERED: E-Z-HD 98% w/w 340GM SUSP BTL As Ordered ONE (12:28)
[2024-11-08] MEDS: HEPARIN 1,000UNITS/ML 10ML VIAL (FOR RADIOLOGY & DIALYSIS ONLY) XX SCH (14:19)
[2024-11-08] MEDS: DARBEPOETIN 100MCG/0.5ML *DIALYSIS* SYRINGE IV SCH (14:20)
[2024-11-08 20:21] VITALS: BP 132/68; TEMP 97.9; O2SAT 97
[2024-11-09 04:00] VITALS: BP 130/69; TEMP 97.9; O2SAT 94
[2024-11-09] MEDS: SUCRALFATE SUSP 1GM/10ML UD PO SCH (08:40)
[2024-11-09 10:39] LABS: HEMATOCRIT 28.3 % (42.0-52.0); HEMOGLOBIN 9.5 g/dl (13.5-17.5); MEAN CORPUSCULAR HEMOGLOBIN 31.5 pg (27.0-33.0); MEAN CORPUSCULAR HGB CONC 33.6 g/dl (32.0-36.5); MEAN CORPUSCULAR VOLUME 93.7 fl (80.0-96.0); PLATELET COUNT, AUTOMATED 213 10^3/uL (150-450); RED BLOOD COUNT 3.02 10^6/uL (4.30-6.10); WHITE BLOOD COUNT 7.3 10^3/uL (4.0-10.0)
[2024-11-09 11:13] LABS: ALBUMIN 3.3 G/DL (3.2-5.2); CALCIUM LEVEL 8.2 MG/DL (8.3-10.6); CREATININE FOR GFR 5.58 MG/DL (0.70-1.30); GLOMERULAR FILTRATION RATE 10.5 (>35); PHOSPHORUS LEVEL 4.5 MG/DL (2.4-5.1); POTASSIUM SERUM 3.7 MMOL/L (3.5-5.1)
[2024-11-09] MEDS ORDERED: SUCR1TA PO (11:16)
[2024-11-09] MEDS ORDERED: PANT-23 PO (11:16)
[2024-11-09] MEDS ORDERED: ASPI81CH33 PO (11:17)
[2024-11-09 12:00] VITALS: BP 134/68; TEMP 97.7; O2SAT 96
== END 2024-11-09 13:41 | disposition home health service (06) | DRG 377 ==
LOC: M ED 10:10 → EDBD 10:10 → M ED INP 18:35 → M MSPAV 11-07 13:25
PROVIDERS: ADMIT Student in an Organized Health Care Education/Training Program; ATTEND Student in an Organized Health Care Education/Training Program
PROC: 30233N1 Transfusion of Nonautologous Red Blood Cells into Peripheral Vein, Percutaneous Approach (ICD-10-PCS; 2024-11-06)
PROC: B246ZZZ Ultrasonography of Right and Left Heart (ICD-10-PCS; principal; 2024-11-07)
PROC: 5A1D70Z Performance of Urinary Filtration, Intermittent, Less than 6 Hours Per Day (ICD-10-PCS; 2024-11-07)
DX: K29.71 Gastritis, unspecified, with bleeding (principal); N18.6 End stage renal disease; I24.89 Other forms of acute ischemic heart disease; I12.0 Hypertensive chronic kidney disease with stage 5 chronic kidney disease or end stage renal disease; J90 Pleural effusion, not elsewhere classified; F01.50 Vascular dementia, unspecified severity, without behavioral disturbance, psychotic disturbance, mood disturbance, and anxiety; E11.22 Type 2 diabetes mellitus with diabetic chronic kidney disease; N40.0 Benign prostatic hyperplasia without lower urinary tract symptoms; I95.1 Orthostatic hypotension; K21.9 Gastro-esophageal reflux disease without esophagitis; E21.2 Other hyperparathyroidism; D63.1 Anemia in chronic kidney disease; Z99.2 Dependence on renal dialysis; Z79.02 Long term (current) use of antithrombotics/antiplatelets; Z79.899 Other long term (current) drug therapy; Z88.0 Allergy status to penicillin; Z87.891 Personal history of nicotine dependence

== ENCOUNTER 2025-01-22 10:56 | Inpatient (IN) | payer MEDICARE ==
[~2025-01-22] VITALS: Ht 172.7 cm; Wt 77.5 kg
[~2025-01-22 10:56] MED LIST changes: +ASPI81CH33 PO; +PANT-23 PO; +SEVE800T3 PO; +SUCR1TA PO
[2025-01-22 12:25] LABS: VENOUS BASE EXCESS -3.9 (-2.0-2.0); VENOUS HCO3 22.2 MMOL/L (23.0-27.0); VENOUS O2 SATURATION 49.8 % (60.0-80.0); VENOUS PARTIAL PRESSURE CO2 44.3 mmHg (38.0-50.0); VENOUS PARTIAL PRESSURE O2 30.5 mmHg (30.0-50.0); VENOUS PH 7.317 UNITS (7.330-7.430); VENOUS STANDARD HCO3 20.3 MMOL/L; VENOUS TOTAL CO2 23.5 MMOL/L (24.0-28.0)
[2025-01-22 12:34] LABS: BASO % 0.5 % (0.0-1.0); EOS # 0.1 10^3/uL (0.0-0.5); EOS % 1.3 % (0.0-3.0); HEMATOCRIT 36.1 % (42.0-52.0); HEMOGLOBIN 12.3 g/dl (13.5-17.5); LYMPH # 0.8 10^3/uL (1.5-5.0); LYMPH % 9.2 % (24.0-44.0); MEAN CORPUSCULAR HEMOGLOBIN 33.5 pg (27.0-33.0); MEAN CORPUSCULAR HGB CONC 34.1 g/dl (32.0-36.5); MEAN CORPUSCULAR VOLUME 98.4 fl (80.0-96.0); MONO # 0.7 10^3/uL (0.0-0.8); MONO % 7.7 % (2.0-8.0); NEUTROPHILS # 6.9 10^3/uL (1.5-8.5); NEUTROPHILS % 80.8 % (36.0-66.0); PLATELET COUNT, AUTOMATED 221 10^3/uL (150-450); RED BLOOD COUNT 3.67 10^6/uL (4.30-6.10); WHITE BLOOD COUNT 8.5 10^3/uL (4.0-10.0)
[2025-01-22 12:36] LABS: KETONE, URINE AUTO RFX NEGATIVE (NEGATIVE); LEUKOCYTE ESTERASE UR AUTO RFX NEGATIVE (NEGATIVE); NITRITE, URINE AUTO RFX NEGATIVE (NEGATIVE); RBC, URINE AUTO RFX 2 /HPF (0-3); SQUAM EPITHELIAL CELL UR AURFX 1 /HPF (0-6); WBC, URINE AUTO RFX 4 /HPF (0-3)
[2025-01-22 12:59] LABS: OSMOLALITY SERUM 322 MOSM/KG (280-301)
[2025-01-22 13:07] LABS: THYROID STIMULATING HORMONE 1.556 uIU/ML (0.55-4.78)
[2025-01-22 13:12] LABS: ALBUMIN 4.1 G/DL (3.2-5.2); ALKALINE PHOSPHATASE 64 U/L (40-129); ALT/SGPT 11 U/L (7.0-40); AST/SGOT 13 U/L (<34); BILIRUBIN,DIRECT < 0.1 MG/DL (<0.4); BILIRUBIN,TOTAL 0.3 MG/DL (0.3-1.2); BLOOD UREA NITROGEN 91 MG/DL (9-23); CALCIUM LEVEL 9.7 MG/DL (8.3-10.6); CARBON DIOXIDE LEVEL 26 MMOL/L (20-31); CHLORIDE LEVEL 99 MMOL/L (98-107); CREATININE FOR GFR 10.45 MG/DL (0.70-1.30); GLOMERULAR FILTRATION RATE 5.1 (>35); GLUCOSE, FASTING 86 MG/DL (74-106); POTASSIUM SERUM 5.4 MMOL/L (3.5-5.1); SODIUM LEVEL 140 MMOL/L (136-145); TOTAL PROTEIN 7.9 G/DL (5.7-8.2)
[2025-01-22] MEDS ORDERED: HOME MED LIST COMPLETE! XX SCH (14:05)
[2025-01-22] MEDS ORDERED: PANT40TA29 PO (14:05)
[2025-01-22] MEDS ORDERED: ASPI81TA26 PO (14:05)
[2025-01-22] MEDS: PATIROMER SORBITEX CALCIUM 8.4 GM POWDER PACKET (VELTASSA) PO ONE (14:15)
[2025-01-22] MEDS ORDERED: DEXTROSE 50% 50ML SYRINGE IV PRN (15:30)
[2025-01-22] MEDS ORDERED: GLUCAGON INJ 1MG VIAL SC PRN (15:30)
[2025-01-22] MEDS ORDERED: GLUCOSE 4 GM CHEW PO PRN (15:30)
[2025-01-22 15:41] LABS: INR 0.99; PARTIAL THROMBOPLASTIN TIME 31.9 SECONDS (24.8-34.2); PROTHROMBIN TIME 13.4 SECONDS (12.5-14.5)
[2025-01-22 15:52] LABS: MAGNESIUM LEVEL 2.5 MG/DL (1.8-2.4); PHOSPHORUS LEVEL 8.5 MG/DL (2.4-5.1)
[2025-01-22 15:58] LABS: PROCALCITONIN 0.31 ng/ml
[2025-01-22] MEDS ORDERED: **hydrALAZINE HCL** 25 MG TAB PO SCH (17:15)
[2025-01-22] MEDS: amLODIPine 5 MG TAB PO SCH (17:26)
[2025-01-22] MEDS: ACETAMINOPHEN 325 MG TAB PO PRN (19:10)
[2025-01-22] MEDS: hydrALAZINE 20MG/ML 1ML VIAL IV PRN (19:11)
[2025-01-22] MEDS: (RENVELA) SEVELAMER **CARBONate** 800 MG TAB PO SCH (19:11)
[2025-01-22] MEDS: ANALGESIC BALM CRM 3OZ TOP PRN (20:43)
[2025-01-22] MEDS: TAMSULOSIN 0.4 MG CAP PO SCH (20:58)
[2025-01-22] MEDS ORDERED: PANTOPRAZOLE 40MG TAB (PROTONIX) PO SCH (21:00)
[2025-01-22] MEDS: HEPARIN SOD (PORCINE) 5000UNITS/ML 1ML VIAL/SYRINGE SC SCH (21:47)
[2025-01-23] MEDS ORDERED: SODIUM CHLORIDE 0.9% 1000 ML IV PRN (00:10)
[2025-01-23] MEDS ORDERED: HEPARIN 1,000UNITS/ML 10ML VIAL (FOR RADIOLOGY & DIALYSIS ONLY) IV PRN (00:10)
[2025-01-23 08:23] LABS: HEMATOCRIT 29.8 % (42.0-52.0); MEAN CORPUSCULAR HGB CONC 32.9 g/dl (32.0-36.5); MEAN CORPUSCULAR VOLUME 97.4 fl (80.0-96.0); PLATELET COUNT, AUTOMATED 183 10^3/uL (150-450); RED BLOOD COUNT 3.06 10^6/uL (4.30-6.10); WHITE BLOOD COUNT 6.6 10^3/uL (4.0-10.0)
[2025-01-23 08:30] LABS: HEMOGLOBIN 9.8 g/dl (13.5-17.5)
[2025-01-23] MEDS: PANTOPRAZOLE 40MG TAB (PROTONIX) PO SCH (09:00)
[2025-01-23] MEDS: ASPIRIN 81MG ENTERIC TABLET PO SCH (09:00)
[2025-01-23 09:14] LABS: ALBUMIN 3.2 G/DL (3.2-5.2); ALKALINE PHOSPHATASE 48 U/L (40-129); ALT/SGPT < 9 U/L (7.0-40); AST/SGOT 10 U/L (<34); BILIRUBIN,TOTAL 0.2 MG/DL (0.3-1.2); BLOOD UREA NITROGEN 99 MG/DL (9-23); CALCIUM LEVEL 8.9 MG/DL (8.3-10.6); CARBON DIOXIDE LEVEL 24 MMOL/L (20-31); CHLORIDE LEVEL 104 MMOL/L (98-107); GLOMERULAR FILTRATION RATE 4.3 (>35); GLUCOSE, FASTING 98 MG/DL (74-106); POTASSIUM SERUM 5.3 MMOL/L (3.5-5.1); SODIUM LEVEL 141 MMOL/L (136-145); TOTAL PROTEIN 6.2 G/DL (5.7-8.2)
[2025-01-23] MEDS: HEPARIN 1,000UNITS/ML 10ML VIAL (FOR RADIOLOGY & DIALYSIS ONLY) XX SCH (09:43)
[2025-01-23 13:30] VITALS: BP 125/53; TEMP 98.5; O2SAT 99
[2025-01-23 16:00] VITALS: BP 106/57; TEMP 97.6; O2SAT 100
[2025-01-23] MEDS: cefTRIAXone SOD 1 GM in DEXTROSE 5% (D5W) ADV/MINI-BAG 50 ML IV SCH (18:36)
[2025-01-23 20:27] VITALS: BP 102/57; TEMP 97.1; O2SAT 97
[2025-01-23 23:22] VITALS: BP 147/67; TEMP 98; O2SAT 97
[2025-01-24 03:45] VITALS: BP 135/56; TEMP 98.1; O2SAT 96
[2025-01-24 06:45] LABS: HEMATOCRIT 34.2 % (42.0-52.0); HEMOGLOBIN 11.2 g/dl (13.5-17.5); MEAN CORPUSCULAR HGB CONC 32.7 g/dl (32.0-36.5); MEAN CORPUSCULAR VOLUME 97.7 fl (80.0-96.0); PLATELET COUNT, AUTOMATED 188 10^3/uL (150-450)
[2025-01-24 06:49] LABS: CREATININE FOR GFR 12.03 MG/DL (0.70-1.30)
[2025-01-24 07:18] LABS: ALBUMIN 3.5 G/DL (3.2-5.2); BILIRUBIN,TOTAL 0.3 MG/DL (0.3-1.2); CALCIUM LEVEL 9.1 MG/DL (8.3-10.6); CREATININE FOR GFR 7.6 MG/DL (0.70-1.30); GLOMERULAR FILTRATION RATE 7.4 (>35); POTASSIUM SERUM 4.7 MMOL/L (3.5-5.1); TOTAL PROTEIN 6.9 G/DL (5.7-8.2)
[2025-01-24] MEDS: HEPARIN SOD (PORCINE) 5000UNITS/ML 1ML VIAL/SYRINGE SC SCH (09:00)
[2025-01-24 09:06] VITALS: BP 132/65; TEMP 97.8; O2SAT 97
[2025-01-24 12:12] VITALS: BP 140/60; TEMP 97.9; O2SAT 96
[2025-01-24 12:59] LABS: PROCALCITONIN 0.38 ng/ml
[2025-01-24 16:08] VITALS: BP 147/70; TEMP 98.2; O2SAT 97
[2025-01-24 19:28] VITALS: BP 141/64; TEMP 97.9; O2SAT 98
[2025-01-25] MEDS ORDERED: SODIUM CHLORIDE 0.9% 1000 ML IV PRN (00:10)
[2025-01-25] MEDS ORDERED: HEPARIN 1,000UNITS/ML 10ML VIAL (FOR RADIOLOGY & DIALYSIS ONLY) XX SCH (00:10)
[2025-01-25 03:20] VITALS: BP 142/67; TEMP 97.8; O2SAT 98
[2025-01-25 04:35] LABS: HEMATOCRIT 30.9 % (42.0-52.0); MEAN CORPUSCULAR HEMOGLOBIN 31.9 pg (27.0-33.0); MEAN CORPUSCULAR HGB CONC 32.4 g/dl (32.0-36.5); MEAN CORPUSCULAR VOLUME 98.7 fl (80.0-96.0); PLATELET COUNT, AUTOMATED 156 10^3/uL (150-450); RED BLOOD COUNT 3.13 10^6/uL (4.30-6.10); WHITE BLOOD COUNT 6.3 10^3/uL (4.0-10.0)
[2025-01-25 05:10] LABS: ALBUMIN 3.2 G/DL (3.2-5.2); BILIRUBIN,TOTAL 0.2 MG/DL (0.3-1.2); CALCIUM LEVEL 8.7 MG/DL (8.3-10.6); CREATININE FOR GFR 9.45 MG/DL (0.70-1.30); GLOMERULAR FILTRATION RATE 5.7 (>35); POTASSIUM SERUM 4.9 MMOL/L (3.5-5.1); TOTAL PROTEIN 6.3 G/DL (5.7-8.2)
[2025-01-25 07:32] VITALS: BP 176/74; TEMP 98; O2SAT 95
[2025-01-25] MEDS: HEPARIN 1,000UNITS/ML 10ML VIAL (FOR RADIOLOGY & DIALYSIS ONLY) IV PRN (09:18)
[2025-01-25 12:18] VITALS: BP 127/81; TEMP 97.6; O2SAT 98
[2025-01-25 15:53] VITALS: BP 114/74; TEMP 98; O2SAT 96
[2025-01-25 20:10] VITALS: BP 119/58; TEMP 98; O2SAT 98
[2025-01-25 22:45] VITALS: BP 143/69; TEMP 98.6; O2SAT 99
[2025-01-26 04:13] VITALS: BP 117/66; TEMP 97.7; O2SAT 98
[2025-01-26] MEDS ORDERED: HEPARIN 1,000UNITS/ML 10ML VIAL (FOR RADIOLOGY & DIALYSIS ONLY) IV PRN (06:00)
[2025-01-26] MEDS ORDERED: LIDOCAINE 1% SDV 5ML VIAL SC PRN (06:00)
[2025-01-26] MEDS ORDERED: SODIUM CHLORIDE 0.9% 1000 ML IV PRN (06:00)
[2025-01-26] MEDS: HEPARIN 1,000UNITS/ML 10ML VIAL (FOR RADIOLOGY & DIALYSIS ONLY) XX SCH (10:08)
[2025-01-26 14:00] VITALS: BP 131/64; TEMP 97.7; O2SAT 96
[2025-01-26 19:33] VITALS: BP 138/79; TEMP 97.9; O2SAT 98
[2025-01-27 05:00] VITALS: BP 109/68; TEMP 97.5; O2SAT 99
[2025-01-27 12:00] VITALS: BP 140/75; TEMP 98.8; O2SAT 96
[2025-01-27 19:36] VITALS: BP 142/64; TEMP 97.7; O2SAT 98
[2025-01-28 05:03] VITALS: BP 114/66; TEMP 97.7; O2SAT 95
[2025-01-28 12:00] VITALS: BP 128/69; TEMP 98.6; O2SAT 97
[2025-01-28 19:49] VITALS: BP 144/73; TEMP 98.6; O2SAT 96
[2025-01-28 19:57] VITALS: BP 138/71
[2025-01-28 23:58] VITALS: BP 140/70; TEMP 98.1; O2SAT 97
[2025-01-29 03:36] VITALS: BP 150/63; TEMP 97.9; O2SAT 96
[2025-01-29] MEDS ORDERED: LIDOCAINE 1% SDV 5ML VIAL SC PRN (06:00)
[2025-01-29] MEDS ORDERED: SODIUM CHLORIDE 0.9% 1000 ML IV PRN (06:00)
[2025-01-29] MEDS ORDERED: HEPARIN 1,000UNITS/ML 10ML VIAL (FOR RADIOLOGY & DIALYSIS ONLY) XX SCH (06:00)
[2025-01-29 07:28] VITALS: BP 121/58; TEMP 98.4; O2SAT 95
[2025-01-29 07:30] VITALS: BP 121/58
[2025-01-29] MEDS: HEPARIN 1,000UNITS/ML 10ML VIAL (FOR RADIOLOGY & DIALYSIS ONLY) IV PRN (09:30)
[2025-01-29 12:30] VITALS: BP 121/69; TEMP 97.7; O2SAT 99
== END 2025-01-29 15:05 | disposition home health service (06) | DRG 947 ==
LOC: EDBD 10:56 → M ED 10:56 → M ED INP 15:07 → M PCU 01-23 13:26 → M MSPAV 01-25 22:38
PROVIDERS: ADMIT Internal Medicine; ATTEND Student in an Organized Health Care Education/Training Program
PROC: 5A1D70Z Performance of Urinary Filtration, Intermittent, Less than 6 Hours Per Day (ICD-10-PCS; principal; 2025-01-25)
DX: R53.1 Weakness (principal); N18.6 End stage renal disease; I12.0 Hypertensive chronic kidney disease with stage 5 chronic kidney disease or end stage renal disease; F01.50 Vascular dementia, unspecified severity, without behavioral disturbance, psychotic disturbance, mood disturbance, and anxiety; E11.22 Type 2 diabetes mellitus with diabetic chronic kidney disease; D63.1 Anemia in chronic kidney disease; N40.0 Benign prostatic hyperplasia without lower urinary tract symptoms; E87.5 Hyperkalemia; R25.2 Cramp and spasm; E87.70 Fluid overload, unspecified; I16.0 Hypertensive urgency; I95.1 Orthostatic hypotension; Z79.82 Long term (current) use of aspirin; Z79.899 Other long term (current) drug therapy; Z88.0 Allergy status to penicillin; Z91.119 Patient's noncompliance with dietary regimen due to unspecified reason; Z99.2 Dependence on renal dialysis

== ENCOUNTER 2025-03-15 22:07 | Inpatient (IN) | payer MEDICARE ==
[~2025-03-15] VITALS: Ht 172.7 cm; Wt 75.0 kg
[~2025-03-15 22:07] MED LIST changes: +ASPI81TA26 PO; -FLOM0.4C39 PO; -PRED50TA PO; +PRED50TA57 PO; +TAMS-18 PO
[2025-03-15 22:36] LABS: BASO # 0.0 10^3/uL (0.0-0.2); BASO % 0.3 % (0.0-1.0); EOS # 0.0 10^3/uL (0.0-0.5); EOS % 0.1 % (0.0-3.0); LYMPH # 0.3 10^3/uL (1.5-5.0); LYMPH % 2.0 % (24.0-44.0); MONO # 0.9 10^3/uL (0.0-0.8); MONO % 5.7 % (2.0-8.0); NEUTROPHILS # 14.4 10^3/uL (1.5-8.5); NEUTROPHILS % 91.6 % (36.0-66.0); PLATELET COUNT, AUTOMATED 203 10^3/uL (150-450)
[2025-03-15] MEDS: ACETAMINOPHEN *IV* 1,000 MG in IV 1 EA IV ONE (23:39)
[2025-03-15 23:54] LABS: ALT/SGPT 10 U/L (7.0-40); AST/SGOT 22 U/L (<34); CALCIUM LEVEL 8.7 MG/DL (8.3-10.6); CARBON DIOXIDE LEVEL 20 MMOL/L (20-31); CHLORIDE LEVEL 100 MMOL/L (98-107); CK-MB VALUE MASS 1.0 NG/ML (<3.6); CPK CREATINE PHOSPHOKINASE 85 U/L (46-171); CREATININE FOR GFR 10.87 MG/DL (0.70-1.30); GLOMERULAR FILTRATION RATE 4.3 (>35); MB/CK RELATIVE INDEX 1.17 (< OR =4); SODIUM LEVEL 137 MMOL/L (136-145)
[2025-03-15 23:56] LABS: POTASSIUM SERUM 5.7 MMOL/L (3.5-5.1)
[2025-03-16] MEDS: cefTRIAXone SOD 1 GM in DEXTROSE 5% (D5W) ADV/MINI-BAG 50 ML IV ONE (00:10)
[2025-03-16 01:58] LABS: VENOUS BASE EXCESS -3.4 (-2.0-2.0); VENOUS HCO3 21.8 MMOL/L (23.0-27.0); VENOUS O2 SATURATION 96.5 % (60.0-80.0); VENOUS PARTIAL PRESSURE CO2 39.3 mmHg (38.0-50.0); VENOUS PARTIAL PRESSURE O2 99.5 mmHg (30.0-50.0); VENOUS PH 7.361 UNITS (7.330-7.430); VENOUS STANDARD HCO3 21.7 MMOL/L; VENOUS TOTAL CO2 23.0 MMOL/L (24.0-28.0)
[2025-03-16 06:04] LABS: KETONE, URINE AUTO RFX NEGATIVE (NEGATIVE); LEUKOCYTE ESTERASE UR AUTO RFX NEGATIVE (NEGATIVE); MUCUS, URINE RFX SMALL (NEGATIVE); NITRITE, URINE AUTO RFX NEGATIVE (NEGATIVE); RBC, URINE AUTO RFX 6 /HPF (0-3); SQUAM EPITHELIAL CELL UR AURFX 0 /HPF (0-6); WBC, URINE AUTO RFX 4 /HPF (0-3)
[2025-03-16] MEDS ORDERED: SODIUM CHLORIDE 0.9% 1000 ML IV PRN (07:25)
[2025-03-16] MEDS ORDERED: HEPARIN 1,000 UNITS/ML 10 ML VIAL (FOR RADIOLOGY & DIALYSIS ONLY) IV PRN (07:25)
[2025-03-16] MEDS ORDERED: MOM 30 ML SUSPENSION UDC PO PRN (08:20)
[2025-03-16] MEDS ORDERED: MAALOX 30 ML SUSP *UDC PO PRN (08:20)
[2025-03-16] MEDS ORDERED: HumuLIN R (REGULAR) INSULIN (NovoLIN R) **100 U/ML** PER UNIT IV STA (08:22)
[2025-03-16] MEDS: DEXTROSE 50% 50 ML SYRINGE IV STA (08:22)
[2025-03-16] MEDS: HumuLIN R (REGULAR) INSULIN (NovoLIN R) **100 U/ML** PER UNIT IV STA (09:00)
[2025-03-16] MEDS ORDERED: MED REC IN PROGRESS XX SCH (09:50)
[2025-03-16] MEDS: PANTOPRAZOLE 40MG TAB PO SCH (10:04)
[2025-03-16 10:16] LABS: CALCIUM LEVEL 8.9 MG/DL (8.3-10.6); CARBON DIOXIDE LEVEL 21.0 MMOL/L (20-31); CHLORIDE LEVEL 99.0 MMOL/L (98-107); CREATININE FOR GFR 11.75 MG/DL (0.70-1.30); GLOMERULAR FILTRATION RATE 4.0 (>35); POTASSIUM SERUM 5.0 MMOL/L (3.5-5.1); SODIUM LEVEL 137.0 MMOL/L (136-145)
[2025-03-16 12:49] VITALS: BP 155/76; TEMP 97.5; O2SAT 99
[2025-03-16 13:33] LABS: PHOSPHORUS LEVEL 9.5 MG/DL (2.4-5.1)
[2025-03-16] MEDS: HEPARIN 1,000 UNITS/ML 10 ML VIAL (FOR RADIOLOGY & DIALYSIS ONLY) XX SCH (15:58)
[2025-03-16] MEDS: REMDESIVIR 200 MG in NS 250 ML IV ONE (16:00)
[2025-03-16] MEDS ORDERED: HOME MED LIST COMPLETE! XX SCH (16:20)
[2025-03-16 19:35] VITALS: BP 155/76; TEMP 98.7; O2SAT 97
[2025-03-16] MEDS: HEPARIN SOD 5000 UNITS/ML 1 ML VIAL/SYRINGE SC SCH (20:09)
[2025-03-16] MEDS: TAMSULOSIN 0.4 MG CAP PO SCH (20:09)
[2025-03-16] MEDS: SEVELAMER *CARBONate* 800 MG TAB PO SCH (20:09)
[2025-03-17] MEDS: ACETAMINOPHEN 325 MG TAB PO PRN (00:02)
[2025-03-17 03:24] VITALS: BP 114/46; TEMP 98.6; O2SAT 96
[2025-03-17] MEDS: ASPIRIN 81 MG ENTERIC TABLET PO SCH (09:59)
[2025-03-17 10:14] LABS: BASO # 0.0 10^3/uL (0.0-0.2); BASO % 0.3 % (0.0-1.0); EOS # 0.1 10^3/uL (0.0-0.5); EOS % 0.6 % (0.0-3.0); LYMPH # 0.6 10^3/uL (1.5-5.0); LYMPH % 5.6 % (24.0-44.0); MONO # 0.9 10^3/uL (0.0-0.8); MONO % 8.0 % (2.0-8.0); NEUTROPHILS # 9.0 10^3/uL (1.5-8.5); NEUTROPHILS % 84.9 % (36.0-66.0); PLATELET COUNT, AUTOMATED 200 10^3/uL (150-450)
[2025-03-17 10:40] LABS: CALCIUM LEVEL 9.1 MG/DL (8.3-10.6); CARBON DIOXIDE LEVEL 21.0 MMOL/L (20-31); CHLORIDE LEVEL 101.0 MMOL/L (98-107); CREATININE FOR GFR 7.42 MG/DL (0.70-1.30); GLOMERULAR FILTRATION RATE 6.9 (>35); MAGNESIUM LEVEL 2.2 MG/DL (1.8-2.4); POTASSIUM SERUM 4.4 MMOL/L (3.5-5.1); SODIUM LEVEL 137.0 MMOL/L (136-145)
[2025-03-17 12:00] VITALS: BP 116/49; TEMP 98.1; O2SAT 97
[2025-03-17 20:00] VITALS: BP 121/55; TEMP 97.2; O2SAT 98
[2025-03-18 04:18] VITALS: BP 123/58; TEMP 98.2; O2SAT 96
[2025-03-18 06:57] LABS: CALCIUM LEVEL 8.3 MG/DL (8.3-10.6); CARBON DIOXIDE LEVEL 20.0 MMOL/L (20-31); CHLORIDE LEVEL 103.0 MMOL/L (98-107); CREATININE FOR GFR 9.09 MG/DL (0.70-1.30); GLOMERULAR FILTRATION RATE 5.4 (>35); MAGNESIUM LEVEL 2.3 MG/DL (1.8-2.4); POTASSIUM SERUM 4.4 MMOL/L (3.5-5.1); SODIUM LEVEL 139.0 MMOL/L (136-145)
[2025-03-18 07:47] VITALS: BP 131/67; TEMP 97.9; O2SAT 97
[2025-03-18] MEDS ORDERED: DOXYCYCLINE HYCLATE 100 MG in DEXTROSE 5% (D5W) MINI-BAG PLU 100 ML IV SCH (07:50)
[2025-03-18] MEDS: MINOCYCLINE 50 MG CAP PO ONE (09:56)
[2025-03-18 12:00] VITALS: BP 132/64; TEMP 97.7; O2SAT 99
[2025-03-18 15:02] LABS: C REACTIVE PROTEIN QUANTITATIV 7.22 MG/DL (<1.0)
[2025-03-18 15:06] LABS: BASO # 0.0 10^3/uL (0.0-0.2); BASO % 0.6 % (0.0-1.0); EOS # 0.1 10^3/uL (0.0-0.5); EOS % 2.2 % (0.0-3.0); LYMPH # 1.0 10^3/uL (1.5-5.0); LYMPH % 15.2 % (24.0-44.0); MONO # 0.6 10^3/uL (0.0-0.8); MONO % 10.0 % (2.0-8.0); NEUTROPHILS # 4.6 10^3/uL (1.5-8.5); NEUTROPHILS % 71.5 % (36.0-66.0); PLATELET COUNT, AUTOMATED 165 10^3/uL (150-450)
[2025-03-18] MEDS ORDERED: VANCOMYCIN HCL 1,000 MG, VIAL MATE ADAPTER 1 EACH in NS 250 ML IV ONE (16:00)
[2025-03-18] MEDS: ceFAZolin SOD 1 GM in DEXTROSE 5% (D5W) ADV/MINI-BAG 50 ML IV SCH (17:57)
[2025-03-18 20:00] VITALS: BP_SYST 126; BP_SYST 160; BP_DIAS 70; BP_DIAS 73; TEMP 97.5; TEMP 97.7; O2SAT 95; O2SAT 98
[2025-03-18] MEDS ORDERED: MINOCYCLINE 50 MG CAP PO SCH (21:00)
[2025-03-19 03:58] VITALS: BP 144/65; TEMP 98.1; O2SAT 96
[2025-03-19] MEDS ORDERED: SODIUM CHLORIDE 0.9% 1000 ML IV PRN (06:00)
[2025-03-19] MEDS ORDERED: HEPARIN 1,000 UNITS/ML 10 ML VIAL (FOR RADIOLOGY & DIALYSIS ONLY) IV PRN (06:00)
[2025-03-19 08:06] LABS: BASO # 0.0 10^3/uL (0.0-0.2); BASO % 0.5 % (0.0-1.0); EOS # 0.2 10^3/uL (0.0-0.5); EOS % 2.8 % (0.0-3.0); LYMPH # 0.8 10^3/uL (1.5-5.0); LYMPH % 12.5 % (24.0-44.0); MONO # 0.6 10^3/uL (0.0-0.8); MONO % 9.4 % (2.0-8.0); NEUTROPHILS # 4.5 10^3/uL (1.5-8.5); NEUTROPHILS % 74.5 % (36.0-66.0); PLATELET COUNT, AUTOMATED 167 10^3/uL (150-450)
[2025-03-19 08:28] LABS: C REACTIVE PROTEIN QUANTITATIV 5.54 MG/DL (<1.0)
[2025-03-19 08:34] LABS: CALCIUM LEVEL 8.3 MG/DL (8.3-10.6); CARBON DIOXIDE LEVEL 19.0 MMOL/L (20-31); CHLORIDE LEVEL 104.0 MMOL/L (98-107); CREATININE FOR GFR 10.39 MG/DL (0.70-1.30); GLOMERULAR FILTRATION RATE 4.6 (>35); MAGNESIUM LEVEL 2.2 MG/DL (1.8-2.4); POTASSIUM SERUM 5.0 MMOL/L (3.5-5.1); SODIUM LEVEL 140.0 MMOL/L (136-145)
[2025-03-19 12:00] VITALS: BP 140/68; TEMP 97.5; O2SAT 98
[2025-03-19] MEDS: HEPARIN 1,000 UNITS/ML 10 ML VIAL (FOR RADIOLOGY & DIALYSIS ONLY) XX SCH (13:00)
[2025-03-19] MEDS: DARBEPOETIN 100 MCG/0.5 ML *DIALYSIS* SYRINGE IV SCH (13:01)
[2025-03-19] MEDS ORDERED: VANCOMYCIN HCL 1,000 MG, VIAL MATE ADAPTER 1 EACH in NS 250 ML IV SCH (16:00)
[2025-03-19 20:00] VITALS: BP 148/74; TEMP 97.9; O2SAT 98
[2025-03-20 04:00] VITALS: BP 107/77; TEMP 97.7; O2SAT 98
[2025-03-20 10:54] LABS: CALCIUM LEVEL 8.8 MG/DL (8.3-10.6); CARBON DIOXIDE LEVEL 23.0 MMOL/L (20-31); CHLORIDE LEVEL 104.0 MMOL/L (98-107); CREATININE FOR GFR 6.5 MG/DL (0.70-1.30); GLOMERULAR FILTRATION RATE 8.1 (>35); MAGNESIUM LEVEL 1.9 MG/DL (1.8-2.4); POTASSIUM SERUM 4.7 MMOL/L (3.5-5.1); SODIUM LEVEL 139.0 MMOL/L (136-145)
[2025-03-20 12:00] VITALS: BP 132/45; TEMP 97.9; O2SAT 98
[2025-03-21 05:54] VITALS: BP 160/83; TEMP 98.4; O2SAT 96
[2025-03-21] MEDS ORDERED: HEPARIN 1,000 UNITS/ML 10 ML VIAL (FOR RADIOLOGY & DIALYSIS ONLY) XX SCH (06:00)
[2025-03-21] MEDS ORDERED: SODIUM CHLORIDE 0.9% 1000 ML IV PRN (06:00)
[2025-03-21 06:43] LABS: CALCIUM LEVEL 8.3 MG/DL (8.3-10.6); CARBON DIOXIDE LEVEL 21.0 MMOL/L (20-31); CHLORIDE LEVEL 106.0 MMOL/L (98-107); CREATININE FOR GFR 8.43 MG/DL (0.70-1.30); GLOMERULAR FILTRATION RATE 5.9 (>35); MAGNESIUM LEVEL 1.9 MG/DL (1.8-2.4); POTASSIUM SERUM 4.4 MMOL/L (3.5-5.1); SODIUM LEVEL 141.0 MMOL/L (136-145)
[2025-03-21] MEDS: HEPARIN 1,000 UNITS/ML 10 ML VIAL (FOR RADIOLOGY & DIALYSIS ONLY) IV PRN (09:25)
[2025-03-21 12:33] VITALS: BP 129/69; TEMP 97.9; O2SAT 98
[2025-03-21 20:03] VITALS: BP 121/55; TEMP 98.6; O2SAT 99
[2025-03-22 07:14] LABS: CALCIUM LEVEL 8.6 MG/DL (8.3-10.6); CARBON DIOXIDE LEVEL 24.0 MMOL/L (20-31); CHLORIDE LEVEL 104.0 MMOL/L (98-107); CREATININE FOR GFR 6.13 MG/DL (0.70-1.30); GLOMERULAR FILTRATION RATE 8.6 (>35); MAGNESIUM LEVEL 1.9 MG/DL (1.8-2.4); POTASSIUM SERUM 4.3 MMOL/L (3.5-5.1); SODIUM LEVEL 140.0 MMOL/L (136-145)
[2025-03-23] MEDS ORDERED: HEPARIN 1,000 UNITS/ML 10 ML VIAL (FOR RADIOLOGY & DIALYSIS ONLY) IV PRN (06:00)
[2025-03-23] MEDS ORDERED: SODIUM CHLORIDE 0.9% 1000 ML IV PRN (06:00)
[2025-03-23 06:09] VITALS: BP 148/69; TEMP 98.2; O2SAT 94
[2025-03-23 06:55] LABS: CALCIUM LEVEL 8.3 MG/DL (8.3-10.6); CARBON DIOXIDE LEVEL 21.0 MMOL/L (20-31); CHLORIDE LEVEL 103.0 MMOL/L (98-107); CREATININE FOR GFR 7.82 MG/DL (0.70-1.30); GLOMERULAR FILTRATION RATE 6.5 (>35); MAGNESIUM LEVEL 1.9 MG/DL (1.8-2.4); POTASSIUM SERUM 4.3 MMOL/L (3.5-5.1); SODIUM LEVEL 137.0 MMOL/L (136-145)
[2025-03-23] MEDS: HEPARIN 1,000 UNITS/ML 10 ML VIAL (FOR RADIOLOGY & DIALYSIS ONLY) XX SCH (09:55)
[2025-03-23 13:34] VITALS: BP 142/62; TEMP 97.8; O2SAT 92
[2025-03-24 03:24] VITALS: BP 139/70; TEMP 98.2; O2SAT 97
[2025-03-24 06:29] LABS: CALCIUM LEVEL 8.3 MG/DL (8.3-10.6); CARBON DIOXIDE LEVEL 23.0 MMOL/L (20-31); CHLORIDE LEVEL 105.0 MMOL/L (98-107); CREATININE FOR GFR 5.65 MG/DL (0.70-1.30); GLOMERULAR FILTRATION RATE 9.5 (>35); MAGNESIUM LEVEL 1.9 MG/DL (1.8-2.4); POTASSIUM SERUM 4.1 MMOL/L (3.5-5.1); SODIUM LEVEL 133.0 MMOL/L (136-145)
[2025-03-25 01:06] VITALS: BP 148/74; TEMP 98.1; O2SAT 98
[2025-03-25 20:30] VITALS: BP 180/98; TEMP 97.5; O2SAT 98
[2025-03-25] MEDS: RAMELTEON 8 MG TAB PO PRN (23:37)
[2025-03-26 02:57] VITALS: BP 152/75; TEMP 98.1; O2SAT 98
[2025-03-26] MEDS ORDERED: SODIUM CHLORIDE 0.9% 1000 ML IV PRN (06:00)
[2025-03-26] MEDS ORDERED: LIDOCAINE 1% SDV 5 ML VIAL SC PRN (06:00)
[2025-03-26] MEDS ORDERED: HEPARIN 1,000 UNITS/ML 10 ML VIAL (FOR RADIOLOGY & DIALYSIS ONLY) IV PRN (06:00)
[2025-03-26] MEDS: BISACODYL 10 MG SUPP PR SCH (09:00)
[2025-03-26] MEDS: MIRALAX *UNIT DOSE* 17 GM PACKET PO SCH (09:00)
[2025-03-26] MEDS: DOCUSATE SODIUM 100 MG CAPSULE PO SCH (09:00)
[2025-03-26] MEDS: HEPARIN 1,000 UNITS/ML 10 ML VIAL (FOR RADIOLOGY & DIALYSIS ONLY) XX SCH (09:19)
[2025-03-26] MEDS: guaiFENesin DM LIQ 10ML UD PO PRN (10:18)
[2025-03-26 16:04] VITALS: BP 105/67; TEMP 97.9; O2SAT 97
[2025-03-27 04:01] VITALS: BP 142/67; TEMP 97.5; O2SAT 99
[2025-03-28 04:48] VITALS: BP 138/68; TEMP 97.7; O2SAT 98
[2025-03-28] MEDS ORDERED: SODIUM CHLORIDE 0.9% 1000 ML IV PRN (06:00)
[2025-03-28] MEDS ORDERED: HEPARIN 1,000 UNITS/ML 10 ML VIAL (FOR RADIOLOGY & DIALYSIS ONLY) IV PRN (06:00)
[2025-03-28] MEDS ORDERED: LIDOCAINE 1% SDV 5 ML VIAL SC PRN (06:00)
[2025-03-28 07:57] VITALS: BP 116/56; TEMP 97.3
[2025-03-28] MEDS: HEPARIN 1,000 UNITS/ML 10 ML VIAL (FOR RADIOLOGY & DIALYSIS ONLY) XX SCH (09:43)
[2025-03-29 03:45] VITALS: BP 110/48; TEMP 97.5; O2SAT 97
[2025-03-30 04:27] VITALS: BP 148/67; TEMP 97.9; O2SAT 97
[2025-03-30] MEDS ORDERED: LIDOCAINE 1% SDV 5 ML VIAL SC PRN (06:00)
[2025-03-30] MEDS ORDERED: SODIUM CHLORIDE 0.9% 1000 ML IV PRN (06:00)
[2025-03-30] MEDS ORDERED: HEPARIN 1,000 UNITS/ML 10 ML VIAL (FOR RADIOLOGY & DIALYSIS ONLY) IV PRN (06:00)
[2025-03-30 08:30] VITALS: BP 144/67; TEMP 99.9; O2SAT 95
[2025-03-30] MEDS: HEPARIN 1,000 UNITS/ML 10 ML VIAL (FOR RADIOLOGY & DIALYSIS ONLY) XX SCH (09:42)
[2025-03-30 12:27] VITALS: BP 130/62; TEMP 97.7; O2SAT 98
[2025-03-31 04:25] VITALS: BP 153/81; TEMP 97.7; O2SAT 99
[2025-04-01 03:18] VITALS: BP 117/52; TEMP 98.4; O2SAT 97
[2025-04-01 04:00] VITALS: O2SAT 97
[2025-04-02 03:12] VITALS: BP 147/80; TEMP 98.1; O2SAT 98
[2025-04-02 04:57] LABS: PLATELET COUNT, AUTOMATED 191 10^3/uL (150-450)
[2025-04-02 05:39] LABS: CALCIUM LEVEL 8.4 MG/DL (8.3-10.6); CARBON DIOXIDE LEVEL 25.0 MMOL/L (20-31); CHLORIDE LEVEL 99.0 MMOL/L (98-107); CREATININE FOR GFR 9.71 MG/DL (0.70-1.30); GLOMERULAR FILTRATION RATE 5.0 (>35); PHOSPHORUS LEVEL 6.6 MG/DL (2.4-5.1); POTASSIUM SERUM 4.7 MMOL/L (3.5-5.1); SODIUM LEVEL 138.0 MMOL/L (136-145)
[2025-04-02] MEDS ORDERED: HEPARIN 1,000 UNITS/ML 10 ML VIAL (FOR RADIOLOGY & DIALYSIS ONLY) IV PRN (06:00)
[2025-04-02] MEDS ORDERED: SODIUM CHLORIDE 0.9% 1000 ML IV PRN (06:00)
[2025-04-02] MEDS: HEPARIN 1,000 UNITS/ML 10 ML VIAL (FOR RADIOLOGY & DIALYSIS ONLY) XX SCH (08:58)
[2025-04-02] MEDS: DARBEPOETIN 200 MCG/0.4 ML *DIALYSIS* SYRINGE IV SCH (08:59)
[2025-04-03 04:03] VITALS: BP 128/67; TEMP 97.7; O2SAT 98
[2025-04-04] MEDS ORDERED: HEPARIN 1,000 UNITS/ML 10 ML VIAL (FOR RADIOLOGY & DIALYSIS ONLY) IV PRN (06:00)
[2025-04-04] MEDS ORDERED: SODIUM CHLORIDE 0.9% 1000 ML IV PRN (06:00)
[2025-04-04 06:40] VITALS: BP 129/68; TEMP 97.7; O2SAT 97
[2025-04-05 04:10] VITALS: BP 154/72; TEMP 97.7; O2SAT 97
[2025-04-05] MEDS ORDERED: HEPARIN 1,000 UNITS/ML 10 ML VIAL (FOR RADIOLOGY & DIALYSIS ONLY) XX SCH (06:00)
[2025-04-05] MEDS ORDERED: SODIUM CHLORIDE 0.9% 1000 ML IV PRN (06:00)
[2025-04-05] MEDS ORDERED: HEPARIN 1,000 UNITS/ML 10 ML VIAL (FOR RADIOLOGY & DIALYSIS ONLY) IV PRN (06:00)
[2025-04-05] MEDS: HEPARIN 1,000 UNITS/ML 10 ML VIAL (FOR RADIOLOGY & DIALYSIS ONLY) XX SCH (09:25)
[2025-04-06 05:58] VITALS: BP 157/79; TEMP 98.4; O2SAT 98
[2025-04-06] MEDS ORDERED: HEPARIN 1,000 UNITS/ML 10 ML VIAL (FOR RADIOLOGY & DIALYSIS ONLY) XX SCH (06:00)
[2025-04-06] MEDS ORDERED: LIDOCAINE 1% SDV 5 ML VIAL SC PRN (06:00)
[2025-04-06] MEDS ORDERED: SODIUM CHLORIDE 0.9% 1000 ML IV PRN (06:00)
[2025-04-06] MEDS: HEPARIN 1,000 UNITS/ML 10 ML VIAL (FOR RADIOLOGY & DIALYSIS ONLY) IV PRN (10:36)
[2025-04-07 06:13] VITALS: BP 120/58; TEMP 98.4; O2SAT 97
[2025-04-08 04:00] VITALS: BP 129/65; TEMP 97.3; O2SAT 95
[2025-04-09] MEDS ORDERED: HEPARIN 1,000 UNITS/ML 10 ML VIAL (FOR RADIOLOGY & DIALYSIS ONLY) IV PRN (06:00)
[2025-04-09] MEDS ORDERED: SODIUM CHLORIDE 0.9% 1000 ML IV PRN (06:00)
[2025-04-09 06:20] VITALS: BP 131/77; TEMP 97.7; O2SAT 100
[2025-04-09] MEDS: HEPARIN 1,000 UNITS/ML 10 ML VIAL (FOR RADIOLOGY & DIALYSIS ONLY) XX SCH (12:32)
[2025-04-10 05:19] VITALS: BP 134/63; TEMP 98.4; O2SAT 98
[2025-04-10 14:18] LABS: KETONE, URINE AUTO RFX NEGATIVE (NEGATIVE); LEUKOCYTE ESTERASE UR AUTO RFX NEGATIVE (NEGATIVE); NITRITE, URINE AUTO RFX NEGATIVE (NEGATIVE); RBC, URINE AUTO RFX 1 /HPF (0-3); SQUAM EPITHELIAL CELL UR AURFX 0 /HPF (0-6); WBC, URINE AUTO RFX 2 /HPF (0-3)
[2025-04-11 04:00] VITALS: BP 130/90; TEMP 97.7; O2SAT 95
[2025-04-11] MEDS ORDERED: SODIUM CHLORIDE 0.9% 1000 ML IV PRN (06:00)
[2025-04-11] MEDS ORDERED: HEPARIN 1,000 UNITS/ML 10 ML VIAL (FOR RADIOLOGY & DIALYSIS ONLY) IV PRN (06:00)
[2025-04-11] MEDS: HEPARIN 1,000 UNITS/ML 10 ML VIAL (FOR RADIOLOGY & DIALYSIS ONLY) XX SCH (10:24)
[2025-04-12 06:08] VITALS: BP 127/57; TEMP 98.1; O2SAT 99
[2025-04-13 03:43] VITALS: BP 155/76; TEMP 97.5; O2SAT 95
[2025-04-13] MEDS ORDERED: HEPARIN 1,000 UNITS/ML 10 ML VIAL (FOR RADIOLOGY & DIALYSIS ONLY) IV PRN (06:00)
[2025-04-13] MEDS ORDERED: SODIUM CHLORIDE 0.9% 1000 ML IV PRN (06:00)
[2025-04-13 09:13] LABS: PLATELET COUNT, AUTOMATED 193 10^3/uL (150-450)
[2025-04-13] MEDS: HEPARIN 1,000 UNITS/ML 10 ML VIAL (FOR RADIOLOGY & DIALYSIS ONLY) XX SCH (09:31)
[2025-04-13 10:29] LABS: CALCIUM LEVEL 8.6 MG/DL (8.3-10.6); CARBON DIOXIDE LEVEL 25 MMOL/L (20-31); CHLORIDE LEVEL 99 MMOL/L (98-107); CREATININE FOR GFR 8.42 MG/DL (0.70-1.30); GLOMERULAR FILTRATION RATE 5.9 (>35); PHOSPHORUS LEVEL 4.6 MG/DL (2.4-5.1); POTASSIUM SERUM 4.7 MMOL/L (3.5-5.1); SODIUM LEVEL 138 MMOL/L (136-145)
[2025-04-14 01:31] VITALS: BP 154/81; TEMP 97.7; O2SAT 98
[2025-04-15 04:50] VITALS: BP 157/81; TEMP 97.9; O2SAT 98
[2025-04-16 05:04] VITALS: BP 163/84; TEMP 97.7; O2SAT 95
[2025-04-16] MEDS ORDERED: HEPARIN 1,000 UNITS/ML 10 ML VIAL (FOR RADIOLOGY & DIALYSIS ONLY) IV PRN (06:00)
[2025-04-16] MEDS ORDERED: SODIUM CHLORIDE 0.9% 1000 ML IV PRN (06:00)
[2025-04-16 07:57] VITALS: BP 156/88; TEMP 97.5; O2SAT 95
[2025-04-16] MEDS: HEPARIN 1,000 UNITS/ML 10 ML VIAL (FOR RADIOLOGY & DIALYSIS ONLY) XX SCH (09:20)
[2025-04-17 04:00] VITALS: BP 152/82; TEMP 97.5; O2SAT 96
[2025-04-18] MEDS ORDERED: SODIUM CHLORIDE 0.9% 1000 ML IV PRN (06:00)
[2025-04-18] MEDS ORDERED: HEPARIN 1,000 UNITS/ML 10 ML VIAL (FOR RADIOLOGY & DIALYSIS ONLY) XX SCH (06:00)
[2025-04-18 06:30] VITALS: BP 158/85; TEMP 97.5; O2SAT 98
[2025-04-18] MEDS: HEPARIN 1,000 UNITS/ML 10 ML VIAL (FOR RADIOLOGY & DIALYSIS ONLY) IV PRN (09:29)
[2025-04-18 13:12] VITALS: BP 140/59
[2025-04-19 03:06] VITALS: BP 140/60; TEMP 97.7; O2SAT 96
[2025-04-20 04:00] VITALS: BP 140/62; TEMP 97.5; O2SAT 95
[2025-04-20] MEDS ORDERED: HEPARIN 1,000 UNITS/ML 10 ML VIAL (FOR RADIOLOGY & DIALYSIS ONLY) XX SCH (06:00)
[2025-04-20] MEDS ORDERED: SODIUM CHLORIDE 0.9% 1000 ML IV PRN (06:00)
[2025-04-20] MEDS ORDERED: HEPARIN 1,000 UNITS/ML 10 ML VIAL (FOR RADIOLOGY & DIALYSIS ONLY) IV PRN (06:00)
[2025-04-21 04:59] VITALS: BP 137/61; TEMP 98.2; O2SAT 98
[2025-04-22 06:00] VITALS: BP 143/64; TEMP 97.9; O2SAT 99
[2025-04-22 07:58] LABS: BASO # 0.0 10^3/uL (0.0-0.2); BASO % 0.4 % (0.0-1.0); EOS # 0.1 10^3/uL (0.0-0.5); EOS % 3.1 % (0.0-3.0); LYMPH # 0.7 10^3/uL (1.5-5.0); LYMPH % 16.4 % (24.0-44.0); MONO # 0.4 10^3/uL (0.0-0.8); MONO % 9.6 % (2.0-8.0); NEUTROPHILS # 3.2 10^3/uL (1.5-8.5); NEUTROPHILS % 70.1 % (36.0-66.0); PLATELET COUNT, AUTOMATED 160 10^3/uL (150-450)
[2025-04-22 08:52] LABS: CALCIUM LEVEL 8.7 MG/DL (8.3-10.6); CARBON DIOXIDE LEVEL 23.0 MMOL/L (20-31); CHLORIDE LEVEL 101.0 MMOL/L (98-107); CREATININE FOR GFR 8.89 MG/DL (0.70-1.30); GLOMERULAR FILTRATION RATE 5.5 (>35); POTASSIUM SERUM 4.6 MMOL/L (3.5-5.1); SODIUM LEVEL 139.0 MMOL/L (136-145)
[2025-04-23] MEDS ORDERED: HEPARIN 1,000 UNITS/ML 10 ML VIAL (FOR RADIOLOGY & DIALYSIS ONLY) IV PRN (06:00)
[2025-04-23] MEDS ORDERED: SODIUM CHLORIDE 0.9% 1000 ML IV PRN (06:00)
[2025-04-23 06:47] VITALS: BP 145/67; TEMP 96.8; O2SAT 92
[2025-04-23] MEDS: HEPARIN 1,000 UNITS/ML 10 ML VIAL (FOR RADIOLOGY & DIALYSIS ONLY) XX SCH (11:39)
[2025-04-24 04:00] VITALS: BP 139/78; TEMP 97.8; O2SAT 6
[2025-04-25] MEDS ORDERED: SODIUM CHLORIDE 0.9% 1000 ML IV PRN (06:00)
[2025-04-25] MEDS ORDERED: HEPARIN 1,000 UNITS/ML 10 ML VIAL (FOR RADIOLOGY & DIALYSIS ONLY) IV PRN (06:00)
[2025-04-25 06:22] VITALS: BP 151/71; TEMP 97.7; O2SAT 98
[2025-04-25] MEDS: HEPARIN 1,000 UNITS/ML 10 ML VIAL (FOR RADIOLOGY & DIALYSIS ONLY) XX SCH (10:01)
[2025-04-26 04:33] VITALS: BP 136/59; TEMP 98.1; O2SAT 98
[2025-04-27 04:04] VITALS: BP 152/70; TEMP 98.1; O2SAT 98
[2025-04-27 05:54] LABS: PLATELET COUNT, AUTOMATED 131 10^3/uL (150-450)
[2025-04-27] MEDS ORDERED: HEPARIN 1,000 UNITS/ML 10 ML VIAL (FOR RADIOLOGY & DIALYSIS ONLY) IV PRN (06:00)
[2025-04-27] MEDS ORDERED: SODIUM CHLORIDE 0.9% 1000 ML IV PRN (06:00)
[2025-04-27 06:35] LABS: CALCIUM LEVEL 8.2 MG/DL (8.3-10.6); CARBON DIOXIDE LEVEL 23.0 MMOL/L (20-31); CHLORIDE LEVEL 98.0 MMOL/L (98-107); CREATININE FOR GFR 8.39 MG/DL (0.70-1.30); GLOMERULAR FILTRATION RATE 5.9 (>35); PHOSPHORUS LEVEL 5.8 MG/DL (2.4-5.1); POTASSIUM SERUM 4.6 MMOL/L (3.5-5.1); SODIUM LEVEL 137.0 MMOL/L (136-145)
[2025-04-27] MEDS: HEPARIN 1,000 UNITS/ML 10 ML VIAL (FOR RADIOLOGY & DIALYSIS ONLY) XX SCH (09:48)
[2025-04-27] MEDS: CALCIUM CARBONATE 500 MG CHEW U/D PO ONE (21:41)
[2025-04-28 06:51] VITALS: BP 135/68; TEMP 97.5; O2SAT 97
[2025-04-29 05:29] VITALS: BP 131/81; TEMP 97.5; O2SAT 97
[2025-04-30 04:00] VITALS: BP_SYST 101; BP_SYST 157; BP_DIAS 46; BP_DIAS 81; TEMP 97.7; TEMP 98.4; O2SAT 92; O2SAT 97
[2025-04-30] MEDS ORDERED: SODIUM CHLORIDE 0.9% 1000 ML IV PRN (06:00)
[2025-04-30] MEDS ORDERED: HEPARIN 1,000 UNITS/ML 10 ML VIAL (FOR RADIOLOGY & DIALYSIS ONLY) IV PRN (06:00)
[2025-04-30] MEDS: HEPARIN 1,000 UNITS/ML 10 ML VIAL (FOR RADIOLOGY & DIALYSIS ONLY) XX SCH (09:52)
[2025-05-01 06:46] VITALS: BP 154/81; TEMP 98.4; O2SAT 97
[2025-05-02] MEDS ORDERED: HEPARIN 1,000 UNITS/ML 10 ML VIAL (FOR RADIOLOGY & DIALYSIS ONLY) XX SCH (00:20)
[2025-05-02] MEDS ORDERED: SODIUM CHLORIDE 0.9% 1000 ML IV PRN (00:20)
[2025-05-02 03:53] VITALS: BP 154/82; TEMP 98.2; O2SAT 98
[2025-05-02] MEDS: HEPARIN 1,000 UNITS/ML 10 ML VIAL (FOR RADIOLOGY & DIALYSIS ONLY) IV PRN (13:29)
[2025-05-03 04:00] VITALS: BP 143/70; TEMP 97.7; O2SAT 98
[2025-05-04 04:03] VITALS: BP 142/68; TEMP 97.9; O2SAT 98
[2025-05-04] MEDS ORDERED: HEPARIN 1,000 UNITS/ML 10 ML VIAL (FOR RADIOLOGY & DIALYSIS ONLY) IV PRN (06:00)
[2025-05-04] MEDS ORDERED: SODIUM CHLORIDE 0.9% 1000 ML IV PRN (06:00)
[2025-05-04] MEDS ORDERED: HEPARIN 1,000 UNITS/ML 10 ML VIAL (FOR RADIOLOGY & DIALYSIS ONLY) XX SCH (06:00)
[2025-05-05 03:32] VITALS: BP 133/79; TEMP 97.7; O2SAT 98
[2025-05-06 04:29] VITALS: BP 147/76; TEMP 97.3; O2SAT 98
[2025-05-07 01:44] VITALS: BP 176/91; TEMP 97.8; O2SAT 96
[2025-05-07 01:49] VITALS: BP 160/80
[2025-05-07 04:00] VITALS: O2SAT 96
[2025-05-07] MEDS ORDERED: HEPARIN 1,000 UNITS/ML 10 ML VIAL (FOR RADIOLOGY & DIALYSIS ONLY) IV PRN (06:00)
[2025-05-07] MEDS ORDERED: SODIUM CHLORIDE 0.9% 1000 ML IV PRN (06:00)
[2025-05-07] MEDS: HEPARIN 1,000 UNITS/ML 10 ML VIAL (FOR RADIOLOGY & DIALYSIS ONLY) XX SCH (14:59)
[2025-05-08 01:53] VITALS: BP 132/82; TEMP 97.7; O2SAT 95
== END 2025-05-08 11:03 | DRG 177 ==
LOC: M ED 22:07 → EDBD 22:07 → M ED INP 03-16 08:17 → M MSPAV 03-16 12:12
PROVIDERS: ADMIT Student in an Organized Health Care Education/Training Program; ATTEND Internal Medicine
PROC: XW033E5 Introduction of Remdesivir Anti-infective into Peripheral Vein, Percutaneous Approach, New Technology Group 5 (ICD-10-PCS; principal; 2025-03-16)
PROC: 5A1D70Z Performance of Urinary Filtration, Intermittent, Less than 6 Hours Per Day (ICD-10-PCS; 2025-03-16)
PROC: B246ZZZ Ultrasonography of Right and Left Heart (ICD-10-PCS; 2025-03-19)
DX: U07.1 COVID-19 (principal); N18.6 End stage renal disease; I50.32 Chronic diastolic (congestive) heart failure; I13.2 Hypertensive heart and chronic kidney disease with heart failure and with stage 5 chronic kidney disease, or end stage renal disease; J98.11 Atelectasis; R78.81 Bacteremia; E11.22 Type 2 diabetes mellitus with diabetic chronic kidney disease; N40.0 Benign prostatic hyperplasia without lower urinary tract symptoms; I95.1 Orthostatic hypotension; F01.50 Vascular dementia, unspecified severity, without behavioral disturbance, psychotic disturbance, mood disturbance, and anxiety; E21.3 Hyperparathyroidism, unspecified; R26.89 Other abnormalities of gait and mobility; I27.20 Pulmonary hypertension, unspecified; R19.7 Diarrhea, unspecified; M79.10 Myalgia, unspecified site; K29.80 Duodenitis without bleeding; D63.1 Anemia in chronic kidney disease; E87.5 Hyperkalemia; K21.9 Gastro-esophageal reflux disease without esophagitis; Z79.82 Long term (current) use of aspirin; Z79.899 Other long term (current) drug therapy; Z88.0 Allergy status to penicillin; Z99.2 Dependence on renal dialysis; Z87.891 Personal history of nicotine dependence; Z95.810 Presence of automatic (implantable) cardiac defibrillator

== ENCOUNTER 2025-07-05 07:04 | Emergency (ER) | payer MEDICAID, MEDICARE ==
[2025-07-05 07:14] VITALS: BP 170/71; TEMP 96.2; O2SAT 97
[2025-07-05] MEDS: SILVER NITRATE APPLICATOR (1 = QTY 10) TOP ONE (07:30)
== END 2025-07-05 08:29 | disposition home or self-care (01) ==
LOC: EDBD 07:04 → M ED 07:26
DX: R04.0 Epistaxis (principal); Z88.0 Allergy status to penicillin; Z79.1 Long term (current) use of non-steroidal anti-inflammatories (NSAID); Z79.899 Other long term (current) drug therapy

== ENCOUNTER 2025-07-11 15:30 | Observation (INO) | payer MEDICARE, MEDICAID ==
[2025-07-11] VITALS (7 sets, daily range): BP systolic 133–179; BP diastolic 67–95; TEMP 97.3–98.9; O2SAT 94–97
[~2025-07-11] VITALS: Ht 172.7 cm; Wt 75.5 kg
[2025-07-11 16:23] LABS: BASO # 0.0 10^3/uL (0.0-0.2); BASO % 0.3 % (0.0-1.0); EOS # 0.1 10^3/uL (0.0-0.5); EOS % 1.0 % (0.0-3.0); LYMPH # 0.7 10^3/uL (1.5-5.0); LYMPH % 7.8 % (24.0-44.0); MONO # 0.6 10^3/uL (0.0-0.8); MONO % 6.6 % (2.0-8.0); NEUTROPHILS # 7.8 10^3/uL (1.5-8.5); NEUTROPHILS % 83.4 % (36.0-66.0); PLATELET COUNT, AUTOMATED 266 10^3/uL (150-450)
[2025-07-11 16:36] LABS: INR 0.92
[2025-07-11 16:52] LABS: ALT/SGPT 9.0 U/L (7.0-40); AST/SGOT 17.0 U/L (<34); CALCIUM LEVEL 9.0 MG/DL (8.3-10.6); CARBON DIOXIDE LEVEL 31.0 MMOL/L (20-31); CHLORIDE LEVEL 96.0 MMOL/L (98-107); CREATININE FOR GFR 2.86 MG/DL (0.70-1.30); GLOMERULAR FILTRATION RATE 21.6 (>35); POTASSIUM SERUM 3.3 MMOL/L (3.5-5.1); SODIUM LEVEL 139.0 MMOL/L (136-145)
[2025-07-11] MEDS ORDERED: HOME MED LIST COMPLETE! XX SCH (17:05)
[2025-07-11] MEDS ORDERED: ACETAMINOPHEN 325 MG TAB PO PRN (17:35)
[2025-07-11] MEDS: POTASSIUM CHLORIDE 10MEQ SR TABLET PO ONE (17:52)
[2025-07-11] MEDS: SEVELAMER *CARBONate* 800 MG TAB PO SCH (18:00)
[2025-07-11] MEDS ORDERED: HEPARIN SOD 5000 UNITS/ML 1 ML VIAL/SYRINGE SC SCH (21:00)
[2025-07-11] MEDS: TAMSULOSIN 0.4 MG CAP PO SCH (21:18)
[2025-07-12 00:08] VITALS: BP 132/71; TEMP 98.2; O2SAT 95
[2025-07-12 00:48] VITALS: BP 137/74; TEMP 98.4; O2SAT 94
[2025-07-12 02:07] LABS: PLATELET COUNT, AUTOMATED 248 10^3/uL (150-450)
[2025-07-12 02:33] LABS: IRON (FE) 78 UG/DL (65-175); PERCENT SATURATION 35.1 % (19.7-50.0)
[2025-07-12 02:40] LABS: ALT/SGPT < 9 U/L (7.0-40); AST/SGOT 14 U/L (<34); CALCIUM LEVEL 8.7 MG/DL (8.3-10.6); CARBON DIOXIDE LEVEL 30 MMOL/L (20-31); CHLORIDE LEVEL 99 MMOL/L (98-107); CREATININE FOR GFR 4.23 MG/DL (0.70-1.30); GLOMERULAR FILTRATION RATE 13.5 (>35); POTASSIUM SERUM 4.3 MMOL/L (3.5-5.1); SODIUM LEVEL 139 MMOL/L (136-145); VITAMIN B12 LEVEL 581 PG/ML (211-911)
[2025-07-12 02:44] LABS: INR 1.02
[2025-07-12 04:40] VITALS: BP 145/75; TEMP 97.9; O2SAT 95
[2025-07-12] MEDS: ASPIRIN 81 MG ENTERIC TABLET PO SCH (08:35)
[2025-07-12] MEDS: PANTOPRAZOLE 40MG TAB PO SCH (08:35)
== END 2025-07-12 11:51 ==
LOC: EDBD 15:30 → M ED 15:30 → M ED INP 15:31 → M MSPAV 20:10
PROVIDERS: ADMIT Internal Medicine; ATTEND Internal Medicine Nephrology
DX: D50.9 Iron deficiency anemia, unspecified (principal); E87.6 Hypokalemia; N18.6 End stage renal disease; Z99.2 Dependence on renal dialysis; I12.0 Hypertensive chronic kidney disease with stage 5 chronic kidney disease or end stage renal disease; E11.22 Type 2 diabetes mellitus with diabetic chronic kidney disease; N40.0 Benign prostatic hyperplasia without lower urinary tract symptoms; I95.1 Orthostatic hypotension; E21.3 Hyperparathyroidism, unspecified; F01.50 Vascular dementia, unspecified severity, without behavioral disturbance, psychotic disturbance, mood disturbance, and anxiety; Z95.810 Presence of automatic (implantable) cardiac defibrillator; Z79.82 Long term (current) use of aspirin; Z79.899 Other long term (current) drug therapy; Z88.0 Allergy status to penicillin
CPT/HCPCS: 36415; 80053; 82607; 82728; 82746; 83550; 85025; 85027; 85610; 85730; 86850; 86900; 86901; 86920; 93005; 99285; G0378; P9016

== ENCOUNTER → 2025-07-23 | Outpatient (REF) | payer MEDICARE, MEDICAID ==
[2025-07-23 19:11] LABS: PLATELET COUNT, AUTOMATED 262 10^3/uL (150-450)
[2025-07-23 19:12] LABS: PSA SCREENING 1.96 NG/ML (< 4.00)
[2025-07-23 19:20] LABS: CALCIUM LEVEL 8.6 MG/DL (8.3-10.6); CARBON DIOXIDE LEVEL 30.0 MMOL/L (20-31); CHLORIDE LEVEL 99.0 MMOL/L (98-107); CHOLESTEROL LEVEL 150.0 MG/DL (<200); CHOLESTEROL RISK RATIO 2.71 (<5); CREATININE FOR GFR 3.78 MG/DL (0.70-1.30); GLOMERULAR FILTRATION RATE 15.4 (>35); LDL CHOLESTEROL 68.2 MG/DL (<100); NON-HDL-C 94.8 MG/DL; POTASSIUM SERUM 3.8 MMOL/L (3.5-5.1); SODIUM LEVEL 138.0 MMOL/L (136-145); TRIGLYCERIDES LEVEL 133.0 MG/DL (<150)
[2025-07-23 20:02] LABS: ESTIMATED AVERAGE GLUCOSE 91.0 MG/DL (60-110)
== END ==
LOC: SKLAB4 07-18 07:00
PROVIDERS: ATTEND Nurse Practitioner Adult Health
DX: N18.6 End stage renal disease (principal); Z12.5 Encounter for screening for malignant neoplasm of prostate; Z79.899 Other long term (current) drug therapy
CPT/HCPCS: 36415; 80048; 80061; 83036; 84443; 85027; G0103

== ENCOUNTER 2025-09-19 16:25 | Emergency (ER) | payer MEDICARE, MEDICAID ==
[2025-09-19 19:59] VITALS: BP 174/96; TEMP 96.8; O2SAT 96
== END 2025-09-19 20:00 | disposition home or self-care (01) ==
LOC: EDBD 16:25 → M ED 19:21
DX: M16.12 Unilateral primary osteoarthritis, left hip (principal); M17.12 Unilateral primary osteoarthritis, left knee; E11.9 Type 2 diabetes mellitus without complications; I10 Essential (primary) hypertension; N18.6 End stage renal disease; Z86.73 Personal history of transient ischemic attack (TIA), and cerebral infarction without residual deficits; Z88.0 Allergy status to penicillin; Z79.1 Long term (current) use of non-steroidal anti-inflammatories (NSAID); Z79.899 Other long term (current) drug therapy

== ENCOUNTER → 2025-10-18 | Outpatient (REF) | payer MEDICARE, MEDICAID | LOC: SKLAB4 15:19 | PROVIDERS: ATTEND Family Medicine | DX: R06.02 Shortness of breath (principal); J90 Pleural effusion, not elsewhere classified; J98.11 Atelectasis ==

== ENCOUNTER → 2025-10-25 | Outpatient (REF) | payer MEDICARE, MEDICAID ==
[2025-10-25 22:29] LABS: PLATELET COUNT, AUTOMATED 236 10^3/uL (150-450)
[2025-10-25 22:48] LABS: ALT/SGPT < 9 U/L (7.0-40); AST/SGOT 14 U/L (<34); CALCIUM LEVEL 9.5 MG/DL (8.3-10.6); CARBON DIOXIDE LEVEL 28 MMOL/L (20-31); CHLORIDE LEVEL 98 MMOL/L (98-107); CREATININE FOR GFR 7.32 MG/DL (0.70-1.30); GLOMERULAR FILTRATION RATE 7.0 (>35); POTASSIUM SERUM 4.2 MMOL/L (3.5-5.1); SODIUM LEVEL 138 MMOL/L (136-145)
== END ==
LOC: SKLAB4 07:00
PROVIDERS: ATTEND Nurse Practitioner Adult Health
DX: R05.9 Cough, unspecified (principal); J90 Pleural effusion, not elsewhere classified; Z95.828 Presence of other vascular implants and grafts

== ENCOUNTER → 2025-10-30 | Outpatient (REF) | payer MEDICARE, MEDICAID | LOC: SKLAB4 07:31 | PROVIDERS: ATTEND Family Medicine | DX: R06.02 Shortness of breath (principal); J98.4 Other disorders of lung; J90 Pleural effusion, not elsewhere classified ==